=== PATIENT | female | born 1960 | race African-American/Black ===

== ENCOUNTER 2018-07-31 09:44 | Emergency (ER) | payer SELFPAY ==
[2018-07-31] MEDS ORDERED: ONDANSETRON 4 MG/2 ML VIAL ONE (10:46)
[2018-07-31] MEDS ORDERED: MORPHINE 4 MG/ML SYR ONE (10:46)
[2018-07-31] MEDS ORDERED: NA CHLORIDE 0.9% 1,000 ML ONE (10:46)
[2018-07-31 11:00] LABS: Absolute Lymphocytes (CBC) 2.4 K/uL (0.7-4.9); Absolute Monocytes 0.5 K/uL (0.1-1.3); Basophils % 0.5 % (0-1.3); Eosinophils % 2.3 % (0-4.4); Lymphocytes % 39.6 % (15.3-44.8); MCH 29.8 pg (27.0-35.0); MPV 8.2 fL (7.6-11.3); Monocytes % 7.8 % (3.3-12.3); RBC Red Blood Cell Count 4.66 M/uL (3.86-4.86)
--- NOTE | 2018-07-31 11:03 | RAD REPORT ---
EXAM DESCRIPTION: CT - Stone Protocol - 07/31/2018 10:51 am CLINICAL HISTORY: Flank pain. Right sided abdominal pain COMPARISON: Abdomen Pelvis Wo Contrast dated 08/03/2017 TECHNIQUE: Axial images were obtained without oral or IV contrast. Lack of contrast limits solid org an and vascular assessment. The [id number] spans the entirety of the system partially obscuring uppermost abdomen and lung bases. Coronal reformatted images were obtained and reviewed. All CT scans are performed using dose optimization technique as appropriate and may include automated exposure control or mA/KV adjustment according to patient size. FINDINGS: The lower lung vasquez are clear. Imaged portions of the liver and spleen show no suspicious findings on non-contrast imaging. The panc reas and adrenal glands are normal. No pathologic lymphadenopathy in the abdomen or pelvis. No urinary tract stones or obstructive uropathy. No bowel obstruction, free air, free fluid or abscess. Appendectomy. No significant bony abnormality. IMPRESSION: No urinary tract stones or obstructive uropathy.
[2018-07-31 11:14] LABS: ALT/SGPT 23 U/L (12-78); AST/SGOT 16 U/L (15-37); Albumin 3.9 g/dL (3.4-5.0); Alkaline Phosphatase 99 U/L (45-117); BUN Blood Urea Nitrogen 13 mg/dL (7-18); Bicarbonate 28 mmol/L (21-32); Bilirubin Direct < 0.1 mg/dL (0-0.2); Bilirubin Total 0.3 mg/dL (0.2-1.0); Glucose Level 103 mg/dL (74-106); Lipase 163 U/L (73-393); Potassium 3.9 mmol/L (3.5-5.1); Protein, Total 7.9 g/dL (6.4-8.2); Sodium Level 139 mmol/L (136-145)
[2018-07-31] MEDS ORDERED: KETOROLAC 30 MG/ML INJ ONE ×2 (12:07→13:42)
[2018-07-31 12:12] LABS: Urine Blood NEGATIVE (NEG); Urine Glucose NEGATIVE (NEG); Urine Protein NEGATIVE (NEG); Urine pH 5.5 (5.0-7.0)
--- NOTE | 2018-07-31 13:32 | ER ---
Nurse's Notes [facility] Name: Joy Soler Age: 58 yrs Sex: Female : 1960 Arrival Date: 07/31/2018 Time: 09:47 Bed 16 Private MD: None, None Diagnosis: Pain in right hip;Low back pain Presentation: 07/31 10:06 Presenting complaint: Patient states: i have this R lower abd pain, it feels like a hj ripping feeling, since yesterday, denies nausea and vomiting; denies fever and chills;. Transition of care: patient was not received from another setting of care. Onset of symptoms was July 31, 2018. Risk Assessment: Do you want to hurt yourself or someone else? Patient reports no desire to harm self or others. Initial Sepsis Screen: Does the patient meet any 2 criteria? No. Patient's initial sepsis screen is negative. Does the patient have a suspected source of infection? No. Patient's initial sepsis screen is negative. Care prior to arrival: None. 10:06 Method Of Arrival: Ambulatory hj 10:06 Acuity: LEIGH 3 hj Triage Assessment: 10:08 General: Appears in no apparent distress. uncomfortable, Behavior is cooperative, hj appropriate for age, anxious. Pain: Complains of pain in abdomen. GI: Reports lower abdominal pain. Historical: - Allergies: 10:08 No Known Allergies; hj - Home Meds: 10:08 blood pressure meds [Active]; hj - PMHx: 10:08 Hypertension; hj - PSHx: 10:08 Hysterectomy; Appendectomy; hj - Immunization history:: Adult Immunizations not immunized. - Social history:: Smoking status: Patient uses tobacco products, smokes one-half pack cigarettes per day, Patient/guardian denies using alcohol. - Ebola Screening: : Patient negative for fever greater than or equal to 101.5 degrees Fahrenheit, and additional compatible Ebola Virus Disease symptoms Patient denies exposure to infectious person Patient denies travel to an Ebola-affected area in the 21 days before illness onset. Screenin:08 Abuse screen: Denies threats or abuse. Denies injuries from another. Nutritional hj screening: No deficits noted. Tuberculosis screening: No symptoms or risk factors identified. Fall Risk None identified. Assessment: 10:09 GI: Bowel sounds hj 10:54 General: Appears uncomfortable, Behavior is calm, cooperative. Pain: Complains of pain la1 in suprapubic area and right lower quadrant Pain currently is 8 out of 10 on a pain scale. Neuro: Level of Consciousness is awake, alert, obeys commands, Oriented to person, place, time, situation. Cardiovascular: Capillary refill < 3 seconds Patient's skin is warm and dry. Respiratory: Airway is patent Respiratory effort is even, unlabored, Respiratory pattern is regular, symmetrical. GI: Abdomen is round non-distended, Bowel sounds present X 4 quads. Abd is soft X 4 quads Abdomen is tender to palpation in right upper quadrant and right lower quadrant Abdomen has rebound tenderness Patient currently denies diarrhea, nausea, vomiting. 13:20 Reassessment: Patient appears in no apparent distress at this time. No changes from la1 previously documented assessment. Patient and/or family updated on plan of care and expected duration. Pain level reassessed. Vital Signs: 10:09 BP 140 / 98; Pulse 81; Resp 18; Temp 98.6(O); Pulse Ox 100% on R/A; Weight 70.76 kg; hj Height 5 ft. 6 in. (167.64 cm); Pain 10/10; 11:29 BP 140 / 87; Pulse 65; Resp 16; Pulse Ox 98% on R/A; la1 13:53 BP 135 / 74; Pulse 97; Resp 16; Temp 98.3; Pulse Ox 98% on R/A; la1 10:09 Body Mass Index 25.18 (70.76 kg, 167.64 cm) ED Course: 09:47 Patient arrived in ED. mr 09:47 None, None is Private Physician. mr 10:07 Triage completed. hj 10:09 Arm band placed on right wrist. hj 10:09 Patient has correct armband on for positive identification. Placed in gown. Bed in low hj position. Call light in reach. 10:13 Mann Nicholson PA is PHCP. amy 10:13 Simran Kim MD is Attending Physician. jmm 10:25 Colton Segura RN is Primary Nurse. la1 10:38 Urine collected: clean catch specimen, clear. mh5 10:[address] mw3 10:49 CT completed. Patient moved back from CT. mw3 10:50 CT Stone Protocol In Process Unspecified. EDMS 10:55 No provider procedures requiring assistance completed. Inserted saline lock: 22 gauge la1 in left antecubital area, using aseptic technique. Blood collected. 13:31 Venkatesh Varghese MD is Referral Physician. m 13:53 IV discontinued, intact, bleeding controlled, No redness/swelling at site. Pressure la1 dressing applied. Administered Medications: 10:53 Drug: NS 0.9% 1000 ml Route: IV; Rate: 1 bolus; Site: left antecubital; la1 13:54 Follow up: IV Status: Completed infusion la1 10:54 Drug: morphine 4 mg Route: IVP; Site: left antecubital; la1 12:45 Follow up: Response: No adverse reaction; Pain is decreased la1 10:54 Drug: Zofran 4 mg Route: IVP; Site: left antecubital; la1 12:45 Follow up: Response: No adverse reaction la1 12:04 Drug: Ketorolac 30 mg Route: IVP; Site: left antecubital; la1 12:44 Follow up: Response: No adverse reaction; Pain is decreased la1 13:52 Drug: Ketorolac 15 mg Route: IVP; Site: left antecubital; la1 13:53 Follow up: Response: No adverse reaction la1 Outcome: 13:31 Discharge ordered by MD. m 13:53 Discharged to home ambulatory. la1 13:53 Condition: stable 13:53 Discharge instructions given to patient, Instructed on discharge instructions, follow up and referral plans. medication usage, Demonstrated understanding of instructions, follow-up care, medications, Prescriptions given X 2. 13:53 Patient left the ED. la1 Signatures: Dispatcher [employer] EDMS Mann Nicholson PA PA jmm Rivera, Mary mr Attema, Lee RN RN la1 Sacha Mena, Alida Wesley RN [facility] Arelis Evangelista 3
--- NOTE | 2018-07-31 13:32 | EDPHYS ---
Physician Documentation [facility] Name: Joy Soler Age: 58 yrs Sex: Female : 1960 Arrival Date: 07/31/2018 Time: 09:47 Bed 16 Private MD: None, None ED Physician Simran Kim HPI: 07/31 10:38 This 58 yrs old Black Female presents to ER via Ambulatory with complaints of Abdominal jmm Pain, Back Pain. 10:38 The patient presents with abdominal pain right lower quadrant. Onset: The jmm symptoms/episode began/occurred gradually, 1 day(s) ago. The symptoms are described as achy. Modifying factors: The symptoms are alleviated by remaining still, the symptoms are aggravated by movement. The patient has not experienced similar symptoms in the past. This is a 58 year old female with a history of htn that presents to the ED with right sided abdominal pain and right flank pain beginning yesterday worsening today. Patient denies injury. Denies vomiting, denies diarrhea. . Historical: - Allergies: 10:08 No Known Allergies; hj - Home Meds: 10:08 blood pressure meds [Active]; hj - PMHx: 10:08 Hypertension; hj - PSHx: 10:08 Hysterectomy; Appendectomy; hj - Immunization history:: Adult Immunizations not immunized. - Social history:: Smoking status: Patient uses tobacco products, smokes one-half pack cigarettes per day, Patient/guardian denies using alcohol. - Ebola Screening: : Patient negative for fever greater than or equal to 101.5 degrees Fahrenheit, and additional compatible Ebola Virus Disease symptoms Patient denies exposure to infectious person Patient denies travel to an Ebola-affected area in the 21 days before illness onset. ROS: 10:38 Constitutional: Negative for fever, chills, and weight loss, Eyes: Negative for injury, jmm pain, redness, and discharge, Cardiovascular: Negative for chest pain, palpitations, and edema, Respiratory: Negative for shortness of breath, cough, wheezing, and pleuritic chest pain. 10:38 Abdomen/GI: Positive for abdominal pain. 10:38 Back: Positive for flank pain, on the right. 10:38 All other systems are negative. Exam: 10:38 Head/Face: atraumatic. Eyes: EOMI, no conjunctival erythema appreciated ENT: Moist jmm Mucus Membranes Neck: Trachea midline, Supple Chest/axilla: Normal chest wall appearance and motion. Cardiovascular: Regular rate and rhythm. No edema appreciated Respiratory: Normal respirations, no respiratory distress appreciated Abdomen/GI: Non distended, soft 10:38 MS/ Extremity: Moves all extremities, no obvious deformities appreciated, no edema noted to the lower extremities Neuro: Awake and alert, normal gait Psych: Behavior is normal, Mood is normal, Patient is cooperative and pleasant 10:38 Constitutional: The patient appears alert, awake, uncomfortable. 10:38 Back: ROM is painful. Vital Signs: 10:09 BP 140 / 98; Pulse 81; Resp 18; Temp 98.6(O); Pulse Ox 100% on R/A; Weight 70.76 kg; hj Height 5 ft. 6 in. (167.64 cm); Pain 10/10; 11:29 BP 140 / 87; Pulse 65; Resp 16; Pulse Ox 98% on R/A; la1 13:53 BP 135 / 74; Pulse 97; Resp 16; Temp 98.3; Pulse Ox 98% on R/A; la1 10:09 Body Mass Index 25.18 (70.76 kg, 167.64 cm) MDM: 10:34 Patient medically screened. [facility] 12:06 Data reviewed: vital signs, nurses notes. ED course: After I discussed CT imaging [facility] results patient stated she had some left upper back pain earlier this week. The patient's pain is mildly relieved in the ED. A cystic mass is palpated in the right paraspinal lumbar region. Pain is localized in the right groin and worsened with flexion of the hip. Symptoms appear more likely musculoskeletal. Patient is encouraged to follow up with orthopedics and otherwise advised to return to the ED if symptoms worsened. Patient understood and agrees with the plan of care. . 13:31 Data reviewed: radiologic studies, CT scan. Counseling: I had a detailed discussion [facility] with the patient and/or guardian regarding: the historical points, exam findings, and any diagnostic results supporting the discharge/admit diagnosis, lab results, radiology results, the need for outpatient follow up, to return to the emergency department if symptoms worsen or persist or if there are any questions or concerns that arise at home. 07/31 10:35 Order name: Basic Metabolic Panel; Complete Time: 11:44 [facility] 07/31 10:35 Order name: CBC with Diff; Complete Time: 11:08 [facility] 07/31 10:35 Order name: Creatinine for Radiology; Complete Time: 11:44 [facility] 07/31 10:35 Order name: Hepatic Function; Complete Time: 11:44 [facility] 07/31 10:35 Order name: Lipase; Complete Time: 11:44 [facility] 07/31 10:53 Order name: Urine Dipstick--Ancillary (enter results); Complete Time: 12:16 07/31 10:35 Order name: IV Saline Lock; Complete Time: 10:37 [facility] 07/31 10:35 Order name: Labs collected and sent; Complete Time: 10:37 [facility] 07/31 10:36 Order name: CT Stone Protocol; Complete Time: 11:08 [facility] Administered Medications: 10:53 Drug: NS 0.9% 1000 ml Route: IV; Rate: 1 bolus; Site: left antecubital; la1 13:54 Follow up: IV Status: Completed infusion la1 10:54 Drug: morphine 4 mg Route: IVP; Site: left antecubital; la1 12:45 Follow up: Response: No adverse reaction; Pain is decreased la1 10:54 Drug: Zofran 4 mg Route: IVP; Site: left antecubital; la1 12:45 Follow up: Response: No adverse reaction la1 12:04 Drug: Ketorolac 30 mg Route: IVP; Site: left antecubital; la1 12:44 Follow up: Response: No adverse reaction; Pain is decreased la1 13:52 Drug: Ketorolac 15 mg Route: IVP; Site: left antecubital; la1 13:53 Follow up: Response: No adverse reaction la1 Disposition: 08/01 10:41 Co-signature as Attending Physician, Simran Kim MD. ma2 Disposition: 07/31/18 13:31 Discharged to Home. Impression: Pain in right hip, Low back pain. - Condition is Stable. - Discharge Instructions: Joint Pain, Back Pain, Adult. - Prescriptions for Ibuprofen 800 mg Oral Tablet - take 1 tablet by ORAL route every 12 hours As needed take with food; 20 tablet. Tylenol- Codeine #3 300-30 mg Oral Tablet - take 1 tablet by ORAL route every 6 hours As needed; 12 tablet. - Medication Reconciliation Form, Thank You Letter, Antibiotic Education, Prescription Opioid Use, Work release form form. - Follow up: Venkatesh Varghese MD; When: 2 - 3 days; Reason: Recheck today's complaints, Continuance of care, Re-evaluation by your physician. Signatures: Dispatcher [employer] EDMS Mann Nicholson PA PA jmm Attema, Lee, RN RN la1 Sacha Mena RN RN hj Simran Kim MD MD ma2 Corrections: (The following items were deleted from the chart) 07/31 13:53 13:31 07/31/2018 13:31 Discharged to Home. Impression: Pain in right hip; Low back la1 pain. Condition is Stable. Forms are Medication Reconciliation Form, Thank You Letter, Antibiotic Education, Prescription Opioid Use. Follow up: Venkatesh Varghese; When: 2 - 3 days; Reason: Recheck today's complaints, Continuance of care, Re-evaluation by your physician. amy
[2018-07-31 14:05] VITALS: O2SAT 98
[2018-07-31 14:06] VITALS: BP 135/74; TEMP 98.3
== END 2018-07-31 13:53 | disposition home or self-care (01) ==
LOC: ER 09:44
DX: M25.551 Pain in right hip (principal); I10 Essential (primary) hypertension; F17.210 Nicotine dependence, cigarettes, uncomplicated
CPT/HCPCS: 36415; 74176; 76377; 80048; 80076; 81003; 83690; 85025; 96361; 96374; 96375; 99284; J2405; J7030

== ENCOUNTER 2020-12-03 01:22 | Emergency (ER) | payer OTHER, SELFPAY ==
[2020-12-03] MEDS ORDERED: HYDROCODONE/APAP 10/325 TAB ONE (02:44)
[2020-12-03] MEDS ORDERED: KETOROLAC 30 MG/ML INJ ONE (02:44)
--- NOTE | 2020-12-03 03:56 | ER ---
Nurse's Notes [facility] Name: Joy Soler Age: 60 yrs Sex: Female : 1960 Arrival Date: 12/03/2020 Time: 01:24 Bed 14 Private MD: None, None Diagnosis: Pain in right knee Presentation: 12/03 01:30 Chief complaint: EMS states: From [facility], slip and fall on ice in the afternoon sf of 12/02/2020, complains of right knee pain, no loc, went to bed hoping it would feel better but was too bad to walk when trying to go to the bathroom this morning. Coronavirus screen: Client denies travel out of the [place] in the last 14 days. At this time, the client does not indicate any symptoms associated with coronavirus-19. Ebola Screen: Patient negative for fever greater than or equal to 101.5 degrees Fahrenheit, and additional compatible Ebola Virus Disease symptoms Patient denies exposure to infectious person. Patient denies travel to an Ebola-affected area in the 21 days before illness onset. No symptoms or risks identified at this time. Initial Sepsis Screen: Does the patient meet any 2 criteria? No. Patient's initial sepsis screen is negative. Does the patient have a suspected source of infection? No. Patient's initial sepsis screen is negative. Risk Assessment: Do you want to hurt yourself or someone else? Patient reports no desire to harm self or others. Onset of symptoms was December 02, 2020. 01:30 Method Of Arrival: EMS: [facility] sf 01:30 Acuity: LEIGH 4 sf Triage Assessment: 01:30 General: Appears in no apparent distress. comfortable, Behavior is calm, cooperative, sf appropriate for age. Pain: Complains of pain in right knee and right montoya Pain currently is 10 out of 10 on a pain scale. Neuro: No deficits noted. Level of Consciousness is awake, alert, obeys commands, Oriented to person, place, time, situation, Appropriate for age. Cardiovascular: No deficits noted. Patient's skin is warm and dry. Respiratory: No deficits noted. Airway is patent Respiratory effort is even, unlabored, Respiratory pattern is regular, symmetrical. Musculoskeletal: pain to right knee Reports pain in right knee and right montoya. Assessment: 02:47 Reassessment: x-ray at bedside. em Vital Signs: 01:30 BP 124 / 92; Pulse 96; Resp 16; Temp 100; Pulse Ox 98% ; Weight 95.25 kg; Height 5 ft. sf 6 in. (167.64 cm); Pain 10/10; 01:30 Body Mass Index 33.89 (95.25 kg, 167.64 cm) ED Course: 01:24 Patient arrived in ED. sg 01:25 None, None is Private Physician. sg 01:29 Moustapha Soliz MD is Attending Physician. kdr 01:34 Triage completed. sf 01:50 Gómez De La Torre, RN is Primary Nurse. em 03:35 Knee Right 3 View XRAY In Process Unspecified. EDMS Administered Medications: 02:46 Drug: [place] 10 mg-325 mg 1 tabs Route: PO; em 02:46 Drug: TORadol - Ketorolac 15 mg Route: IM; Site: right deltoid; em Outcome: 03:55 Discharge ordered by . kdr 04:27 Patient left the ED. ll2 Signatures: Dispatcher [employer] EDMS Venkatesh Cook, KYLE WRIGHT Moustapha Soliz MD MD [facility] Gómez De La Torre, RN KYLE Beckie Gray RN RN 2 Venkatesh Onofre RN RN
--- NOTE | 2020-12-03 03:56 | EDPHYS ---
Physician Documentation [facility] Name: Joy Soler Age: 60 yrs Sex: Female : 1960 Arrival Date: 12/03/2020 Time: 01:24 Bed 14 Private MD: None, None ED Physician Moustapha Soliz HPI: 12/03 02:20 This 60 yrs old Black Female presents to ER via EMS with complaints of Knee Pain. kdr 02:20 The patient presents with a contusion, decreased range of motion, an injury, pain, that kdr is acute. The complaints affect the lateral aspect of right knee, medial aspect of right knee and right knee. Context: The problem was sustained on a street or driveway, resulted from a direct blow, the patient falling, a mis-step, playing sports, an unknown cause, the patient is not able to bear weight, the patient is able to ambulate, with severe difficulty, uses a walker, Problem is a result from a previous injury: No. Onset: The symptoms/episode began/occurred suddenly, this morning, today. Modifying factors: The symptoms are alleviated by remaining still, the symptoms are aggravated by movement, weight bearing, bending knee. Associated signs and symptoms: The patient has no apparent associated signs or symptoms. Treatment prior to arrival includes: no previous treatment. Severity of symptoms: At their worst the symptoms were severe, incapacitating, just prior to arrival, in the emergency department the symptoms are unchanged. The patient has not experienced similar symptoms in the past. The patient has not recently seen a physician. Slipped and fell on the ice land ing on her knees. She was able to get home and went to sleep. When she awoke, she was unable to bear ines or even walk with a walker. ROS: 02:20 Constitutional: Negative for fever, chills, and weight loss, Eyes: Negative for injury, kdr pain, redness, and discharge, Neck: Negative for injury, pain, and swelling, Cardiovascular: Negative for chest pain, palpitations, and edema, Respiratory: Negative for shortness of breath, cough, wheezing, and pleuritic chest pain, Abdomen/GI: Negative for abdominal pain, nausea, vomiting, diarrhea, and constipation, Back: Negative for injury and pain, : Negative for injury, bleeding, discharge, and swelling, Skin: Negative for injury, rash, and discoloration, Neuro: Negative for headache, weakness, numbness, tingling, and seizure activity. Psych: Negative for depression, anxiety, suicide ideation, homicidal ideation, and hallucinations, Allergy/Immunology: Negative for hives, rash, and allergies, Endocrine: Negative for neck swelling, polydipsia, polyuria, polyphagia, and marked weight changes, Hematologic/Lymphatic: Negative for swollen nodes, abnormal bleeding, and unusual bruising. 02:20 MS/extremity: Positive for injury or acute deformity, contusion, decreased range of motion, pain, tenderness, of the lateral aspect of right knee, medial aspect of right knee and right knee. Exam: 02:20 Constitutional: This is a well developed, well nourished patient who is awake, alert, kdr and in no acute distress. Head/Face: Normocephalic, atraumatic. Eyes: Pupils equal round and reactive to light, extra-ocular motions intact. Lids and lashes normal. Conjunctiva and sclera are non-icteric and not injected. Cornea within normal limits. Periorbital areas with no swelling, redness, or edema. Neck: Trachea midline, no thyromegaly or masses palpated, and no cervical lymphadenopathy. Supple, full range of motion without nuchal rigidity, or vertebral point tenderness. No Meningismus. Chest/axilla: Normal chest wall appearance and motion. Nontender with no deformity. No lesions are appreciated. Cardiovascular: Regular rate and rhythm with a normal S1 and S2. No gallops, murmurs, or rubs. Normal PMI, no JVD. No pulse deficits. Respiratory: Lungs have equal breath sounds bilaterally, clear to auscultation and percussion. No rales, rhonchi or wheezes noted. No increased work of breathing, no retractions or nasal flaring. Abdomen/GI: Soft, non-tender, with normal bowel sounds. No distension or tympany. No guarding or rebound. No evidence of tenderness throughout. Back: No spinal tenderness. No costovertebral tenderness. Full range of motion. Skin: Warm, dry with normal turgor. Normal color with no rashes, no lesions, and no evidence of cellulitis. Neuro: Awake and alert, GCS 15, oriented to person, place, time, and situation. Cranial nerves II-XII grossly intact. Motor strength 5/5 in all extremities. Sensory grossly intact. Cerebellar exam normal. Normal gait. Psych: Awake, alert, with orientation to person, place and time. Behavior, mood, and affect are within normal limits. 02:20 Musculoskeletal/extremity: Extremities: grossly normal except: noted in the lateral aspect of right knee, medial aspect of right knee and right knee: contusion, decreased ROM, pain, swelling, tenderness. Vital Signs: 01:30 BP 124 / 92; Pulse 96; Resp 16; Temp 100; Pulse Ox 98% ; Weight 95.25 kg; Height 5 ft. sf 6 in. (167.64 cm); Pain 10/10; 01:30 Body Mass Index 33.89 (95.25 kg, 167.64 cm) sf MDM: 02:20 Data reviewed: vital signs, nurses notes, radiologic studies. Counseling: I had a kdr detailed discussion with the patient and/or guardian regarding: the historical points, exam findings, and any diagnostic results supporting the discharge/admit diagnosis, radiology results, the need for outpatient follow up. 03:55 Patient medically screened. kdr 12/03 02:06 Order name: Knee Right 3 View XRAY em Administered Medications: 02:46 Drug: [place] 10 mg-325 mg 1 tabs Route: PO; em 02:46 Drug: TORadol - Ketorolac 15 mg Route: IM; Site: right deltoid; em Disposition: 12/03/20 03:55 Discharged to Home. Impression: Pain in right knee. - Condition is Stable. - Discharge Instructions: Musculoskeletal Pain, Knee Pain. - Prescriptions for Tylenol- Codeine #3 300-30 mg Oral Tablet - take 2 tablets by ORAL route every 6 hours As needed; 16 tablet. - Medication Reconciliation Form, Thank You Letter, Prescription Opioid Use form. - Follow up: Private Physician; When: 2 - 3 days; Reason: If symptoms return, Further diagnostic work-up, Recheck today's complaints, Continuance of care, Re-evaluation by your physician. - Problem is new. - Symptoms have improved. - Notes: You may need a CT or MRI of your knee if the pain persists. Ther is an irregularity in the lower portion of your femur whcih warrants possible follow-up withorthopedics Signatures: Dispatcher [employer] EDNM Moustapha Soliz MD MD kdr Munoz, Edgar, RN RN Beckie Villalobos, RN RN ll2 Corrections: (The following items were deleted from the chart) 04:27 03:55 12/03/2020 03:55 Discharged to Home. Impression: Pain in right knee. Condition is ll2 Stable. Forms are Medication Reconciliation Form, Thank You Letter, Antibiotic Education, Prescription Opioid Use. Follow up: Private Physician; When: 2 - 3 days; Reason: If symptoms return, Further diagnostic work-up, Recheck today's complaints, Continuance of care, Re-evaluation by your physician. Problem is new. Symptoms have improved. kdr
[2020-12-03 04:31] VITALS: BP 124/92; TEMP 100; O2SAT 98
--- NOTE | 2020-12-03 08:35 | RAD REPORT ---
EXAM DESCRIPTION: RAD - Knee Right 3 View - 12/03/2020 3:35 am CLINICAL HISTORY: PAIN, slip and fall COMPARISON: No comparisons FINDINGS: No fracture, dislocation or periosteal reaction. Sclerotic focus in the distal femoral met aphysis is most likely bone infarct or enchondroma, neither of which is clinically significant in the absence of bone pain the pre dates the fall.No joint effusion seen. No joint space narrowing. No for eign body or other soft tissue abnormality. IMPRESSION: Negative right knee for acute bone or joint finding. Clinical concerns for internal derangement or occult bony injury could be further assessed with MR im aging.
== END 2020-12-03 04:27 | disposition home or self-care (01) ==
LOC: ER 01:22
DX: M25.561 Pain in right knee (principal); W00.9XXA Unspecified fall due to ice and snow, initial encounter
CPT/HCPCS: 96372; 99283

== ENCOUNTER 2021-11-29 13:23 | Emergency (ER) | payer OTHER ==
--- OUTSIDE RECORDS SUMMARY | 2021-11-29 13:26 | XMS REPORT | Continuity of Care Document ---
:1960 Author Organization [facility] t Address [address] [place] [address] Care Team Providers Name Role Phone Jennifer LADLE MECHANIC Attending Clinician JENNIFER Attending Clinician Unavailable Problems This patient has no known problems. Allergies, Adverse Reactions, Alerts Allergy Allergy Status Severity Reaction(s) Onset Inactive Treating Comm ents Source Name Type Date Date Clinician NO KNOWN Drug Active Univers ALLERGIE Class ity of [facility] Social History Social Habit Start Date Stop Date Quantity Comments Source Exposure to Not sure [facility] SARS-CoV-2 (event) Medica l Branch Sex Assigned At [birth year] [facility] 00:00:00 00:00:00 [facility] Smoking Status Start Date Stop Date Source Unknown if ever smoked [facility] Medications This patient has no known medications. Procedures Procedure Date / Time Performed Performing Clinician Sourc e US ABDOMEN COMPLETE 2021-01-08 19:00:19 Noemí Rodriguez [facility] Encounters Start End Encounter Admission Attending Care Care Encounter Source Date/Time Date/Time Type Type Clinicians Facility Department ID 2021-01-08 2021-01-[address] [facility] [id number] Univers 12:50:52 23:59:00 Encounter Noemí Martin [id number] Bo [id number] [facility] [id number] [facility] cheryl 806 Branch 2021-01-08 2021-01-08 Outpatient R [facility] [id number] Univers 00:00:00 00:00:00 NOEMÍ johnson [facility] Results Test Description Test Test Results Result Source Time Comments Comments US ABDOMEN 2021-03- Mildly diffusely Univers ity of COMPLETE 24 echogenic liver can be [facility] 19:21:42 seen with underlying Bran ch hepaticsteatosis. No focal hepatic lesions identified to the extent visualized. No cholelithiasis.RIGHT UPPER QUADRANT ABDOMINAL SONOGRAM TECHNIQUE: Grayscale and limited color Doppler images of the right upperquadrant of the abdomen were obtained. INDICATION: Alcohol dependence with concern for liver disease and ascites. COMPARISON: None available. FINDINGS: Liver is mildly echogenic but essentially normal echotexture. Normalhepatic surface contour. Liver measures 14.7 cm in craniocaudal dimension.No focal hepatic lesions identified to the extent visualized. Main portalvein is patent with normal hepatopedal flow. Main portal vein measures 0.9cm in AP diameter bibiana hepatis. Partial contracted gallbladder without cholelithiasis. No abnormalgallbladder wall thickening (3 mm) or pericholecystic free fluid. Negativesonographic Jang sign. CBD measures 0.4 mm in AP diameter at portahepatis, normal. Visualized portions of the pancreatic head and body appear unremarkable.Pancreatic tail is obscured by bowel gas. Right kidney measures 10.4 x 4.4 x 4.9 cm. Left kidney measures 11.2 x 5.7x 5.0 cm. There is no hydronephrosis or nephrolithiasis. There ispreservation of normal corticomedullary differentiation. No atrophy orcortical thinning. Spleen measures 9.6 cm and clinical dimension, normal. Proximal abdominal aorta measures 2.3 cm in AP diameter bibiana hepatis,normal. No abnormal aortic dilatation in the mid and distal portions.Visualized portions of the IVC appear unremarkable as well. No free fluid in the upper abdomen. [facility], Radiant Results Inft User - 01/08/2021 2:22 PM CDTRIGHT UPPER QUADRANT ABDOMINAL SONOGRAMTECHNIQUE: Grayscale and limited color Doppler images of the right upperquadrant of the abdomen were obtained.INDICATION: Alcohol dependence with concern for liver disease and ascites.COMPARISON: None available.FINDINGS:Live r is mildly echogenic but essentially normal echotexture. Normalhepatic surface contour. Liver measures 14.7 cm in craniocaudal dimension.No focal hepatic lesions identified to the extent visualized. Main portalvein is patent with normal hepatopedal flow. Main portal vein measures 0.9cm in AP diameter bibiana hepatis.Partial contracted gallbladder without cholelithiasis. No abnormalgallbladder wall thickening (3 mm) or pericholecystic free fluid. Negativesonographic Jang sign. CBD measures 0.4 mm in AP diameter at portahepatis, normal.Visualized portions of the pancreatic head and body appear unremarkable.Pancreatic tail is obscured by bowel gas.Right kidney measures 10.4 x 4.4 x 4.9 cm. Left kidney measures 11.2 x 5.7x 5.0 cm. There is no hydronephrosis or nephrolithiasis. There ispreservation of normal corticomedullary differentiation. No atrophy orcortical thinning.Spleen measures 9.6 cm and clinical dimension, normal.Proximal abdominal aorta measures 2.3 cm in AP diameter bibiana hepatis,normal. No abnormal aortic dilatation in the mid and distal portions.Visualized portions of the IVC appear unremarkable as well. No free fluid in the upper abdomen.IMPRESSIONMildl y diffusely echogenic liver can be seen with underlying hepaticsteatosis.No focal hepatic lesions identified to the extent visualized.No cholelithiasis.
[2021-11-29 13:52] LABS: Urine Blood Negative (Negative); Urine Glucose Negative (Negative); Urine Protein Negative (Negative); Urine Specific Gravity >=1.030 (1.005-1.030); Urine pH 5.5 (5.0-7.0)
[2021-11-29] MEDS ORDERED: DIAZEPAM 10 MG/2 ML INJ SYRINGE ONE (14:27)
[2021-11-29] MEDS ORDERED: ONDANSETRON 4 MG/2 ML VIAL ONE (14:27)
[2021-11-29] MEDS ORDERED: KETOROLAC 30 MG/ML INJ ONE (14:27)
[2021-11-29 14:32] LABS: Absolute Lymphocytes (CBC) 2.7 K/uL (0.7-4.9); Hematocrit 40.3 % (36.0-45.0); Lymphocytes % 31.2 % (15.3-44.8); MPV 7.2 fL (7.6-11.3); RBC Red Blood Cell Count 4.67 M/uL (3.86-4.86)
[2021-11-29 14:49] LABS: ALT/SGPT 33 U/L (12-78); AST/SGOT 20 U/L (15-37); Albumin 3.6 g/dL (3.4-5.0); Alkaline Phosphatase 109 U/L (45-117); BUN Blood Urea Nitrogen 19 mg/dL (7-18); Bicarbonate 27 mmol/L (21-32); Bilirubin Direct < 0.1 mg/dL (0-0.2); Bilirubin Total 0.2 mg/dL (0.2-1.0); Glucose Level 93 mg/dL (74-106); Lipase 109 U/L (73-393); Potassium 3.5 mmol/L (3.5-5.1); Protein, Total 8.2 g/dL (6.4-8.2); Sodium Level 138 mmol/L (136-145)
--- NOTE | 2021-11-29 15:16 | RAD REPORT ---
EXAM DESCRIPTION: CTAbdomen Pelvis W Contrast - 11/29/2021 3:00 pm CLINICAL HISTORY: left flank pain COMPARISON: <Comparisons> TECHNIQUE: CT of the abdomen and pelvis was performed. All CT scans are performed using dose optimization technique as appropriate and may include automated exposure control or mA/KV adjustment according to patient size. FINDINGS: Lower chest: No acute abnormality. Liver: No acute abnormality or suspicious lesions. Biliary: No biliary ductal dilatation. Stomach: No significant focal abnormality. Duodenum: No significant focal abnormality. Pancreas: No significant abnormality. Spleen: No significant abnormality. Adrenal: No suspicious lesions. Kidney/ureter: No hydronephrosis. No renal calculi. Retroperitoneum: No retroperitoneal adenopathy. Vascular: No aneurysm. Atherosclerosis. Bowel: No significant focal abnormality. Peritoneum: No ascites or free air. Bladder: Grossly unremarkable. Reproductive: No adnexal masses. Hysterectomy. Bones: No acute fracture. Other: 2.9 cm sebaceous cyst in the lower back. IMPRESSION: No acute intra-abdominal or pelvic finding. Appendectomy
[2021-11-29] MEDS ORDERED: MORPHINE 2 MG/ML SYR ONE (16:04)
[2021-11-29] MEDS ORDERED: FENTANYL CITR 100 MCG/2 ML ONE (16:18)
[2021-11-29] MEDS ORDERED: LIDOCAINE 4% PATCH ONE (16:18)
--- NOTE | 2021-11-29 16:54 | ER ---
Nurse's Notes [facility] Name: Joy Soler Age: 61 yrs Sex: Female : 1960 Arrival Date: 11/29/2021 Time: 13:26 Bed 14 Private MD: Diagnosis: Low back pain Presentation: 11/29 13:44 Chief complaint: Patient states: L flank pain that began last night, denies N/V/D or ph difficulty urinating. Coronavirus screen: Vaccine status: Patient reports receiving the 2nd dose of the covid vaccine. At this time, the client does not indicate any symptoms associated with coronavirus-19. Ebola Screen: No symptoms or risks identified at this time. Initial Sepsis Screen: Does the patient meet any 2 criteria? No. Patient's initial sepsis screen is negative. Does the patient have a suspected source of infection? No. Patient's initial sepsis screen is negative. Risk Assessment: Do you want to hurt yourself or someone else? Patient reports no desire to harm self or others. 13:44 Method Of Arrival: Ambulatory ph 13:44 Acuity: LEIGH 3 ph Historical: - Allergies: 13:44 No Known Allergies; ph - PMHx: 13:44 Hypertension; ph - Immunization history:: Client reports receiving the 2nd dose of the Covid vaccine, Client reports receiving the Param \T\ Param single-dose vaccine. - Social history:: Smoking status: Patient/guardian denies using tobacco, Stopped _ months ago 9. Screenin:44 Abuse screen: Denies threats or abuse. Denies injuries from another. Nutritional ic1 screening: No deficits noted. Tuberculosis screening: No symptoms or risk factors identified. Fall Risk None identified. Assessment: 14:44 General: Appears in no apparent distress. uncomfortable, Behavior is calm, cooperative. ic1 Pain: Complains of pain in left low back and left mid back. Neuro: Level of Consciousness is awake, alert, obeys commands, Oriented to person, place, time. Cardiovascular: No deficits noted. Respiratory: No deficits noted. GI: No deficits noted. : No deficits noted. : Denies burning with urination, discharge, urinary frequency. EENT: No deficits noted. Derm: No deficits noted. Musculoskeletal: No deficits noted. Vital Signs: 13:44 BP 157 / 107; Pulse 92; Resp 18; Temp 97.9; Pulse Ox 100% on R/A; Weight 89.36 kg; ph Height 5 ft. 6 in. (167.64 cm); 14:44 BP 113 / 92; Pulse 88; Resp 18; Pulse Ox 98% ; ic1 16:24 BP 126 / 92; Pulse 89; Resp 18; Pulse Ox 99% ; ic1 13:44 Body Mass Index 31.80 (89.36 kg, 167.64 cm) ph ED Course: 13:26 Patient arrived in ED. mr 13:46 Triage completed. ph 13:46 Arm band placed on. ph 14:12 Mann Nicholson PA is PHCP. jmm 14:12 Moustapha Soliz MD is Attending Physician. jmm 14:42 Basic Metabolic Panel Sent. ic1 14:44 Patient has correct armband on for positive identification. Bed in low position. Call ic1 light in reach. Side rails up X2. 14:44 No provider procedures requiring assistance completed. Inserted saline lock: 20 gauge ic1 in left antecubital area, using aseptic technique. Blood collected. 14:47 Jennifer Neff, RN is Primary Nurse. ic1 15:00 CT Abd/Pelvis - IV Contrast Only In Process Unspecified. EDMS 17:06 IV discontinued, intact, bleeding controlled, No redness/swelling at site. Pressure ic1 dressing applied. Administered Medications: 14:41 Drug: Ketorolac 15 mg Route: IVP; Site: left antecubital; ic1 14:58 Follow up: Response: No adverse reaction brandon 17:07 Follow up: Response: Pain is decreased ic1 14:42 Drug: Zofran (Ondansetron) 4 mg Route: IVP; Site: left antecubital; ic1 14:58 Follow up: Response: No adverse reaction brandon 14:42 Drug: Valium (diazepam) 2 mg Route: IVP; Site: left antecubital; ic1 14:58 Follow up: Response: No adverse reaction brandon 17:07 Follow up: Response: Pain is unchanged, physician notified ic1 16:06 Drug: morphine 2 mg Route: IVP; Site: left antecubital; ic1 17:07 Follow up: Response: Pain is decreased ic1 16:23 Drug: Lidoderm Patch 5 % (700 mg/patch) 1 patches {Note: left lower back.} Route: ic1 Topical; Site: affected area; 17:06 Follow up: Response: Pain is decreased ic1 16:23 Drug: fentaNYL (PF) 50 mcg Route: IVP; Site: left antecubital; ic1 Outcome: 16:53 Discharge ordered by . amy 17:03 Discharged to home ambulatory, with significant other. ic1 17:03 Condition: stable 17:03 Discharge instructions given to patient, Instructed on discharge instructions, follow up and referral plans. Demonstrated understanding of instructions, follow-up care, medications, Prescriptions given X 2. 17:07 Patient left the ED. ic1 Signatures: Dispatcher [employer] EDMS Mann Nicholson PA PA jmm Rivera Bria mr Natalie Garcia RN RN Ana Cristina-Jennifer Johnson, RN RN Jennifer Barrientos RN RN ic1
--- NOTE | 2021-11-29 16:54 | EDPHYS ---
Physician Documentation [facility] Name: Joy Soler Age: 61 yrs Sex: Female : 1960 Arrival Date: 11/29/2021 Time: 13:26 Bed 14 Private MD: ED Physician Moustapha Soliz HPI: 11/29 13:52 This 61 yrs old Black Female presents to ER via Ambulatory with complaints of Flank jmm Pain. 13:52 The patient complains of pain in the left flank. Onset: The symptoms/episode jmm began/occurred gradually, 1 day(s) ago. Modifying factors: The symptoms are alleviated by nothing. the symptoms are aggravated by movement, Heating pad. Associated signs and symptoms: Pertinent negatives: diarrhea, dizziness, dysuria, fever, urinary frequency, headache, hematuria, nausea, pain radiating to the lower extremities, vomiting. The patient has not experienced similar symptoms in the past. Patient denies known injury. Historical: - Allergies: 13:44 No Known Allergies; ph - PMHx: 13:44 Hypertension; ph - Immunization history:: Client reports receiving the 2nd dose of the Covid vaccine, Client reports receiving the Param \T\ Param single-dose vaccine. - Social history:: Smoking status: Patient/guardian denies using tobacco, Stopped _ months ago 9. ROS: 13:52 Constitutional: Negative for fever, chills, and weight loss, Cardiovascular: Negative jmm for chest pain, palpitations, and edema, Respiratory: Negative for shortness of breath, cough, wheezing, and pleuritic chest pain, Abdomen/GI: Negative for abdominal pain, nausea, vomiting, diarrhea, and constipation. 13:52 Back: Positive for pain with movement, Negative for injury or acute deformity. 13:52 All other systems are negative. Exam: 13:52 Constitutional: This is a well developed, well nourished patient who is awake, alert, jmm and in no acute distress. Head/Face: atraumatic. Eyes: EOMI, no conjunctival erythema appreciated ENT: Moist Mucus Membranes Neck: Trachea midline, Supple Chest/axilla: Normal chest wall appearance and motion. Cardiovascular: Regular rate and rhythm. No edema appreciated Respiratory: Normal respirations, no respiratory distress appreciated Abdomen/GI: Non distended, soft 13:52 Back: pain, is absent, ROM is normal, vertebral tenderness, is not appreciated, Pain on palpation of the left L1 paraspinal region, no midline tenderness appreciated. 13:52 Musculoskeletal/extremity: ROM: intact in all extremities. 13:52 Skin: Appearance: Color: normal in color. 13:52 Neuro: Orientation: is normal, Mentation: is normal, Memory: is normal. 13:52 Psych: Behavior/mood is pleasant, cooperative. Vital Signs: 13:44 BP 157 / 107; Pulse 92; Resp 18; Temp 97.9; Pulse Ox 100% on R/A; Weight 89.36 kg; ph Height 5 ft. 6 in. (167.64 cm); 14:44 BP 113 / 92; Pulse 88; Resp 18; Pulse Ox 98% ; ic1 16:24 BP 126 / 92; Pulse 89; Resp 18; Pulse Ox 99% ; ic1 13:44 Body Mass Index 31.80 (89.36 kg, 167.64 cm) ph MDM: 14:19 Patient medically screened. [facility] 16:53 Data reviewed: vital signs, nurses notes. Counseling: I had a detailed discussion with amy the patient and/or guardian regarding: the historical points, exam findings, and any diagnostic results supporting the discharge/admit diagnosis, radiology results, the need for outpatient follow up, to return to the emergency department if symptoms worsen or persist or if there are any questions or concerns that arise at home. 11/29 13:52 Order name: Urine Dipstick-Ancillary; Complete Time: 14:13 [facility] 11/29 14:13 Order name: Basic Metabolic Panel; Complete Time: 14:51 [facility] 11/29 14:13 Order name: CBC with Diff; Complete Time: 14:51 [facility] 11/29 14:13 Order name: Hepatic Function; Complete Time: 14:51 [facility] 11/29 14:13 Order name: Lipase; Complete Time: 14:51 [facility] 11/29 14:20 Order name: CT Abd/Pelvis - IV Contrast Only; Complete Time: 15:19 [facility] 11/29 14:13 Order name: IV Saline Lock; Complete Time: 14:42 [facility] 11/29 14:13 Order name: Labs collected and sent; Complete Time: 14:42 [facility] Administered Medications: 14:41 Drug: Ketorolac 15 mg Route: IVP; Site: left antecubital; ic1 14:58 Follow up: Response: No adverse reaction brandon 17:07 Follow up: Response: Pain is decreased ic1 14:42 Drug: Zofran (Ondansetron) 4 mg Route: IVP; Site: left antecubital; ic1 14:58 Follow up: Response: No adverse reaction brandon 14:42 Drug: Valium (diazepam) 2 mg Route: IVP; Site: left antecubital; ic1 14:58 Follow up: Response: No adverse reaction brandon 17:07 Follow up: Response: Pain is unchanged, physician notified ic1 16:06 Drug: morphine 2 mg Route: IVP; Site: left antecubital; ic1 17:07 Follow up: Response: Pain is decreased ic1 16:23 Drug: Lidoderm Patch 5 % (700 mg/patch) 1 patches {Note: left lower back.} Route: ic1 Topical; Site: affected area; 17:06 Follow up: Response: Pain is decreased ic1 16:23 Drug: fentaNYL (PF) 50 mcg Route: IVP; Site: left antecubital; ic1 Disposition Summary: 11/29/21 16:53 Discharge Ordered Location: Home [facility] Condition: Stable [facility] Diagnosis - Low back pain [facility] Followup: [facility] - With: Private Physician - When: 2 - 3 days - Reason: Recheck today's complaints, Continuance of care, Re-evaluation by your physician Discharge Instructions: - Discharge Summary Sheet [facility] - Acute Back Pain, Adult [facility] Forms: - Medication Reconciliation Form [facility] - Thank You Letter [facility] - Antibiotic Education [facility] - Prescription Opioid Use [facility] Prescriptions: - Diclofenac Sodium 75 mg Oral Tablet Sustained Release - take 1 tablet by ORAL route 2 times per day; 30 tablet; Refills: 0, Product [facility] Selection Permitted - orphenadrine citrate 100 mg Oral Tablet Sustained Release - take 1 tablet by ORAL route 2 times per day As needed; 20 tablet; Refills: 0, [facility] Product Selection Permitted Addendum: 12/01/2021 06:28 Co-signature as Attending Physician, Moustapha Soliz MD I agree with the assessment and k dr plan of care. Signatures: Dispatcher [employer] Moustapha Cote MD MD kdr Mickail, Joel, PA PA Natalie Rodarte RN RN ph Creggett, Iesha, RN RN ic1 Au-Stager, Jennifer RN brandon
[2021-11-29 17:17] VITALS: TEMP 97.9
[2021-11-29 17:20] VITALS: BP 126/92; O2SAT 99
== END 2021-11-29 17:07 | disposition home or self-care (01) ==
LOC: ER 13:23
DX: M54.50 Low back pain, unspecified (principal)
CPT/HCPCS: 85025; 80048; 36415; 80076; 81003; 83690; 74177; 96375; 96374; 99284; Q9967; J3360; J3010; J2270; J2405

== ENCOUNTER 2023-11-22 12:45 | Observation (INO) | payer OTHER, SELFPAY ==
--- OUTSIDE RECORDS SUMMARY | 2023-11-22 12:49 | XMS REPORT | Continuity of Care Document ---
Author Name Unknown Address [address] [place] [address] [facility]connect Address [address] [place] [address] Care Team Providers Care Cisco Administrator Name Role Phone Kristine Ramírez Primary Care Physician BEN LINARES Attending Clinician Unavailable LISA RICHARDSON Attending Clinician Unavailable MARICARMEN JONES Attending Clinician Unava ilable [id number] Attending Clinician Unavailable ISABELLA DONALDSON Attending Clinician Unavailable LATOYA GARDUNO Attending Clinician Unavail able KARLEY NAVARRO Attending Clinician Unavailabl e LAB90 Attending Clinician Unavailable MICHELLE MERCADO Attending Clinician Unav ailTaylor Devine Attending Clinician [phone] TAYLOR RODRIGUEZ Attending Clinician Unavailable Payers Payer Name Policy Type Policy Number Effective Date Expirati on Date Source [employer] [facility] O [employer] 94 ON 9 [id number] 2023 00:00:00 Problems Condition Name Condition Details Condition Category Status Onset Date Resolution Date Last Treatment Date Treating Clinician Comments Source Anxiety Anxiety Disease Active 05-21 00:00: 00 Kathleen paredes Bipolar 1 disorder (multi HCC) Bipolar 1 disorder (multi HCC) Disease Active 05-21 00:00: 00 Kathleen paredes Prediabete s Prediabete s Disease Active 2023-0 8-04 00:00: 00 Kathleen paredes Hepatitis C antibody test positive Hepatitis C antibody test positive Disease Active 04-16 00:00: 00 Kathleen paredes Chronic hepatitis C without hepatic coma Chronic hepatitis C without hepatic coma Disease Active 04-16 00:00: 00 Kathleen paredes 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 back pain with left-sided sciatica Disease Active 04-16 00:00: 00 Kathleen paredes Rheumatoid arthritis (multi HCC) Rheumatoid arthritis (multi HCC) Disease Active 04-16 00:00: 00 Kathleen paredes Allergies, Adverse Reactions, Alerts Allergy Name Allergy Type Status Severity Reaction(s) Onset Date Inactive Date Treating Clinician Comments Source [place] - Intraven ous Propensi ty to adverse reaction to drug Active 04-15 00:00: 00 Codeine Propensi ty to adverse reaction s Active 04-15 00:00: 00 Kathleen paredes NO KNOWN ALLERGIE S Drug Class Active [facility] Social History Social Habit Start Date Stop Date Quantity Comments Source Exposure to SARS-CoV-2 (event) Not sure [facility] Gender identity Cherri Adrian - External Sexual orientation Gabriel Adrian - External Alcohol intake 2023-08-20 00:00:00 2023-08-20 00:00:00 Ex-drinker (finding) Kathleen Adrian - External History of Social function 2023-07-10 00:00:00 2023-07-10 00:00:00 Kathleen Adrian - Abdirahman Cigarettes smoked current (pack per day) - Reported 2023-03-23 00:00:00 2023-03-23 00:00:00 Kathleen Fontaine External Tobacco Comment 2023-03-23 00:00:00 2023-03-23 00:00:00 Restarted smoking - 1/4 pack a day. Kathleen Adrian - External Cigarette pack-years 2023-03-23 00:00:00 2023-03-23 00:00:00 Kathleen Adrian - External Tobacco use and exposure 2023-03-23 00:00:00 2023-03-23 00:00:00 Smokeless tobacco non-user Kathleen Adrian - External Alcohol Comment 2023-01-22 00:00:00 2023-01-22 00:00:00 Alcoholic stopped 6 years ago Kathleen Kaylah - External History of tobacco use 2020-10-18 00:00:00 Cigarette Smoker Kathleen Kaylah - External Sex Ass[birth year] At 1960 00:00:00 1960 00:00:00 Kathleen Kaylah - External Smoking Status Start Date Stop Date Source Unknown if ever smoked [facility] Ex-smoker 2023-03-23 00:00:00 2023-03-23 00:00:00 Gabriel segundo Seeric - External Medications Ordered Medication Name Filled Medication Name Start Date Stop Date Current Medication? Ordering Clinician Indication Dosage Frequency Signature (SIG) Comments Components Source HYDROcodone -Acetaminop hen (NORCO) 5-325 MG oral Tablet 2022-10 09:15: 14 Yes 1{tbl} Q.25D Take 1 tablet by mouth every 6 hours as needed for pain. Kathleen paredes HYDROcodone -Acetaminop hen (NORCO) 5-325 MG oral Tablet 2022-10 07:42: 11 08-20 00:00 :00 No 1{tbl} Q.25D Take 1 tablet by mouth every 6 hours as needed for pain. Kathleen paredes Amlodipine Besylate (NORVASC) 5 MG oral Tablet 2022-10 00:00: 00 Yes [id number] 5mg Take 1 tablet (5 mg total) by mouth daily. Kathleen paredes Alprazolam 1 MG oral Tablet 2022-10 00:00: 00 Yes [id number] 1mg TAKE 1 TABLET BY MOUTH 2 TIMES DAILY Kathleen paredes FLUTICASONE PROPIONATE, NASAL, 50 MCG/ACT nasal Suspension 2022-10 0 00:00: 00 Yes USE 1 SPRAY IN EACH NOSTRIL ONCE A DAY Kathleen paredes HYDROcodone -Acetaminop hen (NORCO) 5-325 MG oral Tablet 07-07 14:15: 32 Yes 1{tbl} Q.25D Take 1 tablet by mouth every 6 hours as needed for pain. Kathleen Marmolejokarinanola Fontaine Nunojeanie lena HYDROcodone -Acetaminop hen (NORCO) 5-325 MG oral Tablet 07-07 14:15: 32 Yes 1{tbl} Q.25D Take 1 tablet by mouth every 6 hours as needed for pain. Kathleen Marmolejokarinanola Zhen Reinajeanie lena FLUTICASONE PROPIONATE, NASAL, 50 MCG/ACT nasal Suspension 07-07 14:13: 07-07 00:00 :00 No 50ug Use 1 spray (50 mcg total) in each nostril daily Kathleen Marmolejokarinanola Zhen paredes FLUTICASONE PROPIONATE, NASAL, 50 MCG/ACT nasal Suspension 07-07 14:13: 07-07 00:00 :00 No 50ug Use 1 spray (50 mcg total) in each nostril daily Kathleen Marmolejokarinanola Zhen Reinajeanie lena Sod Picosulfate -Mag Ox-Cit Acd (Clenpiq) 10-3.5-12 MG-GM -GM/175ML oral Solution 07-07 00:00: 00 Yes [id number] Instructio ns provided to patient. Follow instructio ns provided by provider.. Kathleen Marmolejokarinanola Sinha lena Sod Picosulfate -Mag Ox-Cit Acd (Clenpiq) 10-3.5-12 MG-GM -GM/175ML oral Solution 07-07 00:00: 00 Yes [id number] Instructio ns provided to patient. Follow instructio ns provided by provider.. Kathleen Marmolejokarinanola Fontaine Nunojeanie lena Sod Picosulfate -Mag Ox-Cit Acd (Clenpiq) 10-3.5-12 MG-GM -GM/175ML oral Solution 07-07 00:00: 00 08-20 00:00 :00 No [id number] Instructio ns provided to patient. Follow instructio ns provided by provider.. Kathleen Kaylah paredes Alprazolam 1 MG oral Tablet 06-11 00:00: 00 Yes [id number] 1mg Take 1 tablet (1 mg total) by mouth 2 times daily. Kathleen paredes Alprazolam 1 MG oral Tablet 06-11 00:00: 00 Yes [id number] 1mg Take 1 tablet (1 mg total) by mouth 2 times daily. Kathleen paredes hydroCHLORO thiazide 12.5 MG oral Tablet 05-21 11:45: 48 05-21 00:00 :00 No 12.5mg Take 1 tablet (12.5 mg total) by mouth daily Kathleen paredes Albuterol HFA 108 (90 Base) MCG/ACT IN AERS 05-21 11:45: 48 05-21 00:00 :00 No 2{puff} Q.25D Inhale 2 puffs into the lungs every 6 hours as needed Kathleen paredes AMLODIPINE BENZOATE OR 05-21 11:44: 09 05-21 00:00 :00 No 5mg Take 5 mg by mouth daily Kathleen paredes Gabapentin 300 MG oral Capsule 05-21 00:00: 00 Yes [id number] 300mg Take 1 capsule (300 mg total) by mouth 2 times daily Kathleen paredes Amlodipine Besylate (NORVASC) 5 MG oral Tablet 05-21 00:00: 00 Yes [id number] 5mg Take 1 tablet (5 mg total) by mouth daily Kathleen paredes hydroCHLORO thiazide 12.5 MG oral Tablet 05-21 00:00: 00 Yes [id number] 12.5mg Take 1 tablet (12.5 mg total) by mouth daily Kathleen paredes Atorvastati n Calcium (Lipitor) 10 MG oral Tablet 05-21 00:00: 00 Yes [id number] 10mg Take 1 tablet (10 mg total) by mouth nightly Kathleen paredes Albuterol HFA 108 (90 Base) MCG/ACT IN AERS 05-21 00:00: 00 Yes [id number] 2{puff} Q.25D Inhale 2 puffs into the lungs every 6 hours as needed for wheezing or shortness of breath Kathleen Adrian - Externa l Amlodipine Besylate (NORVASC) 5 MG oral Tablet 05-21 00:00: 00 Yes [id number] 5mg Take 1 tablet (5 mg total) by mouth daily Kathleen Adrian - Externa l hydroCHLORO thiazide 12.5 MG oral Tablet 05-21 00:00: 00 Yes [id number] 12.5mg Take 1 tablet (12.5 mg total) by mouth daily Kathleen Adrian - Externa l Atorvastati n Calcium (Lipitor) 10 MG oral Tablet 05-21 00:00: 00 Yes [id number] 10mg Take 1 tablet (10 mg total) by mouth nightly Kathleen Adrian - Externa l Albuterol HFA 108 (90 Base) MCG/ACT IN AERS 05-21 00:00: 00 Yes [id number] 2{puff} Q.25D Inhale 2 puffs into the lungs every 6 hours as needed for wheezing or shortness of breath Kathleen Adrian - Externa l Amlodipine Besylate (NORVASC) 5 MG oral Tablet 05-21 00:00: 00 Yes [id number] 5mg Take 1 tablet (5 mg total) by mouth daily Kathleen Adrian - Externa l hydroCHLORO thiazide 12.5 MG oral Tablet 05-21 00:00: 00 Yes [id number] 12.5mg Take 1 tablet (12.5 mg total) by mouth daily Kathleen Adrian - Externa l Atorvastati n Calcium (Lipitor) 10 MG oral Tablet 05-21 00:00: 00 Yes [id number] 10mg Take 1 tablet (10 mg total) by mouth nightly Kathleen Adrian - Externa l Albuterol HFA 108 (90 Base) MCG/ACT IN AERS 05-21 00:00: 00 Yes [id number] 2{puff} Q.25D Inhale 2 puffs into the lungs every 6 hours as needed for wheezing or shortness of breath Kathleen Adrian - Externa l hydroCHLORO thiazide 12.5 MG oral Tablet 05-21 00:00: 00 Yes [id number] 12.5mg Take 1 tablet (12.5 mg total) by mouth daily Kathleen paredes Atorvastati n Calcium (Lipitor) 10 MG oral Tablet 05-21 00:00: 00 Yes [id number] 10mg Take 1 tablet (10 mg total) by mouth nightly Kathleen paredes Albuterol HFA 108 (90 Base) MCG/ACT IN AERS 05-21 00:00: 00 Yes [id number] 2{puff} Q.25D Inhale 2 puffs into the lungs every 6 hours as needed for wheezing or shortness of breath Kathleen paredes Amlodipine Besylate (NORVASC) 5 MG oral Tablet 05-21 00:00: 00 08-20 00:00 :00 No [id number] 5mg Take 1 tablet (5 mg total) by mouth daily Kathleen paredes Gabapentin 300 MG oral Capsule 05-21 00:00: 00 07-07 00:00 :00 No [id number] 300mg Take 1 capsule (300 mg total) by mouth 2 times daily Kathleen paredes Gabapentin 300 MG oral Capsule 05-21 00:00: 00 07-07 00:00 :00 No [id number] 300mg Take 1 capsule (300 mg total) by mouth 2 times daily Kathleen paredes Tizanidine HCl 2 MG oral Tablet 05-12 00:00: 00 05-21 00:00 :00 No [id number] 2mg QD TAKE 1 TABLET BY MOUTH NIGHTLY NEEDED FOR MUSCLE SPASMS. Kathleen paredes Alprazolam 1 MG oral Tablet 04-16 11:25: 00 Yes 1mg Take 1 tablet (1 mg total) by mouth 2 times daily Kathleen paredes FLUTICASONE PROPIONATE, NASAL, 50 MCG/ACT nasal Suspension 04-16 11:25: 00 Yes 50ug Use 1 spray (50 mcg total) in each nostril daily Kathleen paredes Alprazolam 1 MG oral Tablet 04-16 11:25: 00 Yes 1mg Take 1 tablet (1 mg total) by mouth 2 times daily Kathleen paredes AMLODIPINE BENZOATE OR 04-16 11:25: 00 Yes 5mg Take 5 mg by mouth daily Kathleen paredes hydroCHLORO thiazide 12.5 MG oral Tablet 04-16 11:25: 00 Yes 12.5mg Take 1 tablet (12.5 mg total) by mouth daily Kathleen paredes Albuterol HFA 108 (90 Base) MCG/ACT IN AERS 04-16 11:25: 00 Yes 2{puff} Q.25D Inhale 2 puffs into the lungs every 6 hours as needed Kathleen paredes FLUTICASONE PROPIONATE, NASAL, 50 MCG/ACT nasal Suspension 04-16 11:25: 00 Yes 50ug Use 1 spray (50 mcg total) in each nostril daily Kathleen paredes Gabapentin 300 MG oral Capsule 04-16 00:00: 00 Yes [id number] 300mg Take 1 capsule (300 mg total) by mouth 3 times daily Kathleen paredes Meloxicam 15 MG oral Tablet 04-16 00:00: 00 Yes [id number] 15mg Take 1 tablet (15 mg total) by mouth daily Kathleen paredes Tizanidine HCl 2 MG oral Tablet 04-16 00:00: 00 Yes [id number] 2mg QD Take 1 tablet (2 mg total) by mouth nightly as needed for muscle spasms Kathleen paredes Gabapentin 300 MG oral Capsule 04-16 00:00: 00 05-21 00:00 :00 No [id number] 300mg Take 1 capsule (300 mg total) by mouth 3 times daily Kathleen paredes Meloxicam 15 MG oral Tablet 04-16 00:00: 00 05-21 00:00 :00 No [id number] 15mg Take 1 tablet (15 mg total) by mouth daily Kathleen paredes Nicotine 21-14-7 MG/24HR transdermal Kit 04-09 00:00: 00 Yes [id number] Use per package directions Kathleen paredes Nicotine 21-14-7 MG/24HR transdermal Kit 04-09 00:00: 00 05-21 00:00 :00 No [id number] Use per package directions Kathleen paredes Atorvastati n Calcium (Lipitor) 10 MG oral Tablet 04-02 00:00: 00 Yes [id number] 10mg Take 1 tablet (10 mg total) by mouth daily Kathleen paredes Atorvastati n Calcium (Lipitor) 10 MG oral Tablet 04-02 00:00: 00 05-21 00:00 :00 No [id number] 10mg Take 1 tablet (10 mg total) by mouth daily Kathleen paredes Alprazolam 1 MG oral Tablet 03-23 15:19: 22 Yes 1mg Take 1 tablet (1 mg total) by mouth 2 times daily Kathleen paredes AMLODIPINE BENZOATE OR 03-23 15:19: 22 Yes 5mg Take 5 mg by mouth daily Kathleen paredes hydroCHLORO thiazide 12.5 MG oral Tablet 03-23 15:19: 22 Yes 12.5mg Take 1 tablet (12.5 mg total) by mouth daily Kathleen paredes Albuterol HFA 108 (90 Base) MCG/ACT IN AERS 03-23 15:19: 22 Yes 2{puff} Q.25D Inhale 2 puffs into the lungs every 6 hours as needed Kathleen paredes FLUTICASONE PROPIONATE, NASAL, 50 MCG/ACT nasal Suspension 03-23 15:19: 22 Yes 50ug Use 1 spray (50 mcg total) in each nostril daily Kathleen paredes Gabapentin 300 MG oral Capsule 03-23 00:00: 00 04-16 00:00 :00 No 300mg Take 1 capsule (300 mg total) by mouth at bedtime Kathleen paredes Alprazolam 1 MG oral Tablet 01-25 14:32: 31 Yes 1mg Take 1 tablet (1 mg total) by mouth 2 times daily Kathleen paredes AMLODIPINE BENZOATE OR 01-25 14:32: 31 Yes 5mg Take 5 mg by mouth daily Kathleen paredes hydroCHLORO thiazide 12.5 MG oral Tablet 01-25 14:32: 31 Yes 12.5mg Take 1 tablet (12.5 mg total) by mouth daily Kathleen paredes Albuterol HFA 108 (90 Base) MCG/ACT IN AERS 01-25 14:32: 31 Yes 2{puff} Q.25D Inhale 2 puffs into the lungs every 6 hours as needed Kathleen paredes FLUTICASONE PROPIONATE, NASAL, 50 MCG/ACT nasal Suspension 01-25 14:32: 31 Yes 50ug Use 1 spray (50 mcg total) in each nostril daily Kathleen paredes Meloxicam 7.5 MG oral Tablet 01-25 00:00: 00 Yes [id number] 7.5mg Take 1 tablet (7.5 mg total) by mouth daily Kathleen paredes Nicotine 21-14-7 MG/24HR transdermal Kit 01-25 00:00: 00 Yes [id number] Use per package directions Kathleen paredes Meloxicam 7.5 MG oral Tablet 01-25 00:00: 00 Yes [id number] 7.5mg Take 1 tablet (7.5 mg total) by mouth daily Kathleen paredes Nicotine 21-14-7 MG/24HR transdermal Kit 01-25 00:00: 00 Yes [id number] Use per package directions Kathleen paredes Meloxicam 7.5 MG oral Tablet 01-25 00:00: 00 04-16 00:00 :00 No [id number] 7.5mg Take 1 tablet (7.5 mg total) by mouth daily Kathleen paredes Amlodipine Besylate (NORVASC) 5 MG oral Tablet 01-01 00:00: 00 Yes 5mg Take 1 tablet (5 mg total) by mouth daily Kathleen paredes Amlodipine Besylate (NORVASC) 5 MG oral Tablet 01-01 00:00: 00 Yes 5mg Take 1 tablet (5 mg total) by mouth daily Kathleen paredes Amlodipine Besylate (NORVASC) 5 MG oral Tablet 01-01 00:00: 00 Yes 5mg Take 1 tablet (5 mg total) by mouth daily Kathleen paredes Amlodipine Besylate (NORVASC) 5 MG oral Tablet 01-01 00:00: 00 05-21 00:00 :00 No 5mg Take 1 tablet (5 mg total) by mouth daily Kathleen paredes Gabapentin 300 MG oral Capsule 12-22 00:00: 00 Yes 300mg Take 1 capsule (300 mg total) by mouth at bedtime Kathleen paredes Gabapentin 300 MG oral Capsule 12-22 00:00: 00 03-23 00:00 :00 No 300mg Take 1 capsule (300 mg total) by mouth at bedtime Kathleen paredes Dose Unknown 04-16 00:00: 00 No prednisone 20 mg tablet 04-15 00:00: 00 No mg TAKE 1 CAPSULE BY MOUTH AT BEDTIME 04-15 00:00: 00 No TAKE 1 TABLET BY MOUTH ONCE A DAY 04-15 00:00: 00 No TAKE 1 CAPSULE BY MOUTH EVERY DAY IN THE MORNING 04-15 00:00: 00 No TAKE 1 CAPSULE BY MOUTH EVERY DAY IN THE MORNING 04-15 00:00: 00 No TAKE 1 CAPSULE BY MOUTH AT BEDTIME 04-15 00:00: 00 No sumatriptan 50 mg tablet 2020-10 2- 00:00: 00 No 1mg diclofenac sodium 75 mg tablet,sushil yed release 2020-10 2- 00:00: 00 No 1mg sumatriptan 50 mg tablet 2020-10 0-23 00:00: 00 No 1mg diclofenac sodium 75 mg tablet,sushil yed release 1 0-23 00:00: 00 No 1mg diclofenac sodium 75 mg tablet,sushil yed release 0 9-16 00:00: 00 No 1mg ProAir HFA 90 mcg/actuati on aerosol inhaler 0 8-17 00:00: 00 No 12mcg/a ctuatio n sumatriptan 50 mg tablet 0 8-17 00:00: 00 No 1mg diclofenac sodium 75 mg tablet,sushil yed release 0 8-17 00:00: 00 No 1mg simvastatin 20 mg tablet 0 8-17 00:00: 00 No 1mg methotrexat e sodium 2.5 mg tablet 0 8-17 00:00: 00 No 3mg ProAir HFA 90 mcg/actuati on aerosol inhaler 0 6-29 00:00: 00 No 12mcg/a ctuatio n diclofenac sodium 75 mg tablet,sushil yed release 0 6-29 00:00: 00 No 1mg methotrexat e sodium 2.5 mg tablet 0 6-29 00:00: 00 No 3mg indomethaci n 50 mg capsule 2020-0 6-23 00:00: 00 No 1mg indomethaci n 50 mg capsule 2020-0 5-10 00:00: 00 No 1mg simvastatin 20 mg tablet 2020-0 5-07 00:00: 00 No 1mg sumatriptan 50 mg tablet 2020-0 5-04 00:00: 00 No 1mg indomethaci n 50 mg capsule 2020-0 3-03 00:00: 00 No 1mg Colace 100 mg capsule 2020-0 1-13 00:00: 00 No 13mg indomethaci n 50 mg capsule 2019-1 1-20 00:00: 00 No 1mg methocarbam ol 750 mg tablet 2019-0 9-16 00:00: 00 No 1mg indomethaci n 50 mg capsule 0 9-16 00:00: 00 No 1mg methocarbam ol 750 mg tablet 2019-0 9-15 00:00: 00 No 1mg indomethaci n 50 mg capsule 0 9-15 00:00: 00 No 1mg indomethaci n 50 mg capsule 05-14 00:00: 00 No 1mg simvastatin 20 mg tablet 03-26 00:00: 00 No 1mg indomethaci n 50 mg capsule 03-26 00:00: 00 No 1mg prednisone 20 mg tablet 02-19 00:00: 00 No 1mg methocarbam ol 750 mg tablet 5- 00:00: 00 No 1mg gabapentin 400 mg capsule 5 00:00: 00 No 1mg diclofenac sodium 75 mg tablet,sushil yed release 0 3-31 00:00: 00 No 1mg diclofenac sodium 75 mg tablet,sushil yed release 0 2-25 00:00: 00 No 1mg venlafaxine ER 75 mg tablet,exte nded release 24 hr 214 00:00: 00 No 1mg prednisone 5 mg tablet 2-11 00:00: 00 No 1mg naproxen 500 mg tablet - 00:00: 00 No 1mg simvastatin 20 mg tablet 11-13 00:00: 00 No 1mg cyclobenzap rine 10 mg tablet 11-13 00:00: 00 No 1mg aripiprazol e 5 mg tablet 11-13 00:00: 00 No 1mg fluticasone propionate 50 mcg/actuati on nasal spray,suspe nsion 11-13 00:00: 00 No 1mcg/ac tuation simvastatin 20 mg tablet 2018-10 015 00:00: 00 No 1mg fluticasone propionate 50 mcg/actuati on nasal spray,suspe nsion 2018-10 015 00:00: 00 No 1mcg/ac tuation naproxen 500 mg tablet 2018-10 0-08 00:00: 00 No 1mg cyclobenzap rine 10 mg tablet 07-11 00:00: 00 No 1mg indomethaci n 50 mg capsule 24 00:00: 00 No 1mg fluticasone propionate 50 mcg/actuati on nasal spray,suspe nsion 03-14 00:00: 00 No 1mcg/ac tuation cyclobenzap rine 10 mg tablet 03-08 00:00: 00 No 1mg simvastatin 20 mg tablet 02-08 00:00: 00 No 1mg cyclobenzap rine 10 mg tablet 02-07 00:00: 00 No 1mg Vitamin D2 1,250 mcg (50,000 unit) capsule 01-22 00:00: 00 No 1(50,00 0 unit) metronidazo le 500 mg tablet 01-18 00:00: 00 No 1mg omeprazole 20 mg tablet,sushil yed release 01-18 00:00: 00 No 1mg clarithromy jarrell 500 mg tablet 01-18 00:00: 00 No 1mg cyclobenzap rine 10 mg tablet 01-18 00:00: 00 No 1mg Abilify 5 mg tablet 01-05 00:00: 00 No 51mg Norvasc 5 mg tablet 12-21 00:00: 00 No 1mg alprazolam 1 mg tablet 12-21 00:00: 00 No 1mg metronidazo le 500 mg tablet 12-21 00:00: 00 No 1mg fluconazole 150 mg tablet 12-21 00:00: 00 No mg hydrochloro thiazide 12.5 mg capsule 12-21 00:00: 00 No 1mg amlodipine 5 mg tablet 10-20 00:00: 00 No 1mg fluoxetine 40 mg capsule 01-21 00:00: 00 No 1mg Norvasc 5 mg tablet 12-17 00:00: 00 No 1mg cyclobenzap rine 10 mg tablet 12-17 00:00: 00 No 51mg fluoxetine 20 mg capsule 12-17 00:00: 00 No 1mg amoxicillin 500 mg tablet 01-08 00:00: 00 No 1mg Immunizations Ordered Immunization Name Filled Immunization Name Date Status Comments Source [facility] COVID-19 Vaccine 2021-10-02 00:00:00 Completed Covid-19 Vaccine ([email or web address]) 2021-10-02 00:00:00 Emilie Gary Covid-19 Vaccine ([email or web address]) 2021-10-02 00:00:00 Emilie Gary Covid-19 Vaccine ([facility]) Unknown Completed Kathleen Seybold - External Covid-19 Vaccine ([facility]) Unknown Completed Kathleen Seybold - External Covid-19 Vaccine ([facility]) Unknown Completed Kathleen Seybold - External Vital Signs Vital Name Observation Time Observation Value Comments S moralesce Systolic blood pressure 2023-08-20 14:06:00 138 mm[Hg] Kathleen Seybo ld - External Diastolic blood pressure 2023-08-20 14:06:00 84 mm[Hg] Kathleen Seybo ld - External Heart rate 2023-08-20 14:06:00 74 /min Kelse y Seybold - External Body temperature 2023-08-20 14:06:00 36.56 Cari Kathleen Seybold - External Respiratory rate 2023-08-20 14:06:00 18 /min Kathleen Seybold - External Body height 2023-08-20 14:06:00 167.6 cm Cherri ey Seybold - External Body weight 2023-08-20 14:06:00 98.09 kg Cherri ey Seybold - External BMI 2023-08-20 14:06:00 34.90 kg/m2 Cherri ey Seybold - External Oxygen saturation in Arterial blood by Pulse oximetry 2023-08-20 14:06:00 98 /min Kathleen Seybo ld - External Systolic blood pressure 2023-07-07 19:11:00 121 mm[Hg] Kathleen Seybo ld - External Diastolic blood pressure 2023-07-07 19:11:00 79 mm[Hg] Kathleen Seybo ld - External Heart rate 2023-07-07 19:11:00 97 /min Kelse y Seybold - External Respiratory rate 2023-07-07 19:11:00 16 /min Kathleen Seybold - External Body height 2023-07-07 19:11:00 167.6 cm Cherri ey Seybold - External Body weight 2023-07-07 19:11:00 95.255 kg Cherri ey Seybold - External BMI 2023-07-07 19:11:00 33.89 kg/m2 Cherri ey Seybold - External Heart rate 2023-05-21 15:56:00 88 /min Kelse y Seybold - External Body temperature 2023-05-21 15:56:00 36.61 Cari Kathleen Seybold - External Respiratory rate 2023-05-21 15:56:00 15 /min Kathleen Seybold - External Body height 2023-05-21 15:56:00 167.6 cm Cherri ey Seybold - External Body weight 2023-05-21 15:56:00 100.245 kg Cherri ey Seybold - External BMI 2023-05-21 15:56:00 35.67 kg/m2 Cherri ey Seybold - External Oxygen saturation in Arterial blood by Pulse oximetry 2023-05-21 15:56:00 99 /min Kathleen Seybo ld - External Systolic blood pressure 2023-04-16 16:23:00 121 mm[Hg] Kathleen Seybo ld - External Diastolic blood pressure 2023-04-16 16:23:00 83 mm[Hg] Kathleen Seybo ld - External Heart rate 2023-04-16 16:23:00 91 /min Kelse y Seybold - External Body temperature 2023-04-16 16:23:00 36.61 Cari Kathleen Seybold - External Respiratory rate 2023-04-16 16:23:00 14 /min Kathleen Seybold - External Body height 2023-04-16 16:23:00 167.6 cm Cherri ey Seybold - External Body weight 2023-04-16 16:23:00 94.802 kg Cherri ey Seybold - External BMI 2023-04-16 16:23:00 33.73 kg/m2 Cherri ey Seybold - External Oxygen saturation in Arterial blood by Pulse oximetry 2023-04-16 16:23:00 99 /min Kathleen Seybo ld - External Systolic blood pressure 2023-03-23 20:12:00 131 mm[Hg] Kathleen Seybo ld - External Diastolic blood pressure 2023-03-23 20:12:00 88 mm[Hg] Kathleen Seybo ld - External Heart rate 2023-03-23 20:12:00 111 /min Kelse y Seybold - External Respiratory rate 2023-03-23 20:12:00 16 /min Kathleen Seybold - External Body height 2023-03-23 20:12:00 167.6 cm Cherri ey Seybold - External Body weight 2023-03-23 20:12:00 94.802 kg Cherri ey Seybold - External BMI 2023-03-23 20:12:00 33.73 kg/m2 Cherri ey Seybold - External Systolic blood pressure 2023-01-25 19:27:00 130 mm[Hg] Kathleen Mckinneyo ld - External Diastolic blood pressure 2023-01-25 19:27:00 88 mm[Hg] Kathleen Mckinneyo ld - External Heart rate 2023-01-25 19:27:00 87 /min Alexandra y Seybold - External Body temperature 2023-01-25 19:27:00 36.17 Cari Kathleen Seybold - External Respiratory rate 2023-01-25 19:27:00 16 /min Kathleen Marmolejoybold - External Body height 2023-01-25 19:27:00 167.6 cm Cherri tillman Seybold - External Body weight 2023-01-25 19:27:00 97.16 kg Cherri tillman Seybold - External BMI 2023-01-25 19:27:00 34.57 kg/m2 Cherri tillman Seybold - External Oxygen saturation in Arterial blood by Pulse oximetry 2023-01-25 19:27:00 98 /min Kathleen Mckinneyo ld - External BP Systolic 2022-04-15 17:08:00 BP Diastolic 2022-04-15 17:08:00 Weight Measured 2022-04-15 17:08:00 197.00 pounds Height Measured 2022-04-15 17:08:00 66.50 inches Body Temperature 2022-04-15 17:08:00 Heart Rate 2022-04-15 17:08:00 Respiratory Rate 2022-04-15 17:08:00 BP Systolic 2021-09-26 14:58:00 127 mm[Hg] BP Diastolic 2021-09-26 14:58:00 83 mm[Hg] Weight Measured 2021-09-26 14:58:00 197.40 pounds Height Measured 2021-09-26 14:58:00 66.50 inches Body Temperature 2021-09-26 14:58:00 98.10 degrees Heart Rate 2021-09-26 14:58:00 76.00 /min Respiratory Rate 2021-09-26 14:58:00 17.00 /min BP Systolic 2021-06-03 14:55:00 121 mm[Hg] BP Diastolic 2021-06-03 14:55:00 78 mm[Hg] Weight Measured 2021-06-03 14:55:00 196.60 pounds Height Measured 2021-06-03 14:55:00 66.50 inches Body Temperature 2021-06-03 14:55:00 98.20 degrees Heart Rate 2021-06-03 14:55:00 93.00 /min Respiratory Rate 2021-06-03 14:55:00 17.00 /min BP Systolic 2021-02-18 10:53:00 125 mm[Hg] BP Diastolic 2021-02-18 10:53:00 85 mm[Hg] Weight Measured 2021-02-18 10:53:00 198.80 pounds Height Measured 2021-02-18 10:53:00 66.50 inches Body Temperature 2021-02-18 10:53:00 98.20 degrees Heart Rate 2021-02-18 10:53:00 100.00 /min Respiratory Rate 2021-02-18 10:53:00 17.00 /min BP Systolic 2021-01-01 11:10:00 132 mm[Hg] BP Diastolic 2021-01-01 11:10:00 84 mm[Hg] Weight Measured 2021-01-01 11:10:00 206.40 pounds Height Measured 2021-01-01 11:10:00 66.50 inches Body Temperature 2021-01-01 11:10:00 99.30 degrees Heart Rate 2021-01-01 11:10:00 102.00 /min Respiratory Rate 2021-01-01 11:10:00 18.00 /min BP Systolic 2020-10-30 09:29:00 124 mm[Hg] BP Diastolic 2020-10-30 09:29:00 84 mm[Hg] Weight Measured 2020-10-30 09:29:00 204.60 pounds Height Measured 2020-10-30 09:29:00 66.50 inches Body Temperature 2020-10-30 09:29:00 99.20 degrees Heart Rate 2020-10-30 09:29:00 102.00 /min Respiratory Rate 2020-10-30 09:29:00 17.00 /min BP Systolic 2020-09-06 11:50:00 130 mm[Hg] BP Diastolic 2020-09-06 11:50:00 89 mm[Hg] Weight Measured 2020-09-06 11:50:00 201.80 pounds Height Measured 2020-09-06 11:50:00 66.50 inches Body Temperature 2020-09-06 11:50:00 Heart Rate 2020-09-06 11:50:00 87.00 /min Respiratory Rate 2020-09-06 11:50:00 17.00 /min BP Systolic 2020-07-02 15:03:00 141 mm[Hg] BP Diastolic 2020-07-02 15:03:00 91 mm[Hg] Weight Measured 2020-07-02 15:03:00 202.60 pounds Height Measured 2020-07-02 15:03:00 66.50 inches Body Temperature 2020-07-02 15:03:00 98.30 degrees Heart Rate 2020-07-02 15:03:00 93.00 /min Respiratory Rate 2020-07-02 15:03:00 16.00 /min BP Systolic 2020-02-20 08:50:00 118 mm[Hg] BP Diastolic 2020-02-20 08:50:00 77 mm[Hg] Weight Measured 2020-02-20 08:50:00 186.60 pounds Height Measured 2020-02-20 08:50:00 66.50 inches Body Temperature 2020-02-20 08:50:00 98.70 degrees Heart Rate 2020-02-20 08:50:00 103.00 /min Respiratory Rate 2020-02-20 08:50:00 18.00 /min BP Systolic 2020-01-16 11:13:00 128 mm[Hg] BP Diastolic 2020-01-16 11:13:00 88 mm[Hg] Weight Measured 2020-01-16 11:13:00 184.00 pounds Height Measured 2020-01-16 11:13:00 66.50 inches Body Temperature 2020-01-16 11:13:00 98.10 degrees Heart Rate 2020-01-16 11:13:00 102.00 /min Respiratory Rate 2020-01-16 11:13:00 18.00 /min Procedures Procedure Date / Time Performed Performing Clinicia n Source US ABDOMEN COMPLETE 2021-01-08 19:00:19 [facility] Rodriguez [facility] Plan of Care Planned Activity Planned Date Details Comments Source Goal Plan of Care Note [code = 35067-6] Goal Plan of Care Note [code = 12879-3] Goal Plan of Care Note [code = 36307-3] Goal Plan of Care Note [code = 34941-2] Goal Plan of Care Note [code = 42818-9] Goal Plan of Care Note [code = 46388-0] Goal Plan of Care Note [code = 27022-6] Goal Plan of Care Note [code = 61717-4] Goal Plan of Care Note [code = 10300-6] Goal Plan of Care Note [code = 03062-6] Goal Plan of Care Note [code = 90383-4] Goal Plan of Care Note [code = 68594-2] Goal Plan of Care Note [code = 71113-0] Goal Plan of Care Note [code = 52832-7] Goal Plan of Care Note [code = 87826-6] Goal Plan of Care Note [code = 98138-9] Goal Plan of Care Note [code = 60052-8] Goal Plan of Care Note [code = 25181-7] Goal Plan of Care Note [code = 97066-5] Goal Plan of Care Note [code = 96559-0] Goal Plan of Care Note [code = 75945-7] Goal Plan of Care Note [code = 86070-0] Goal Plan of Care Note [code = 19646-7] Goal Plan of Care Note [code = 66276-2] Goal Plan of Care Note [code = 04990-8] Goal Plan of Care Note [code = 05909-2] Goal Plan of Care Note [code = 69202-9] Goal Plan of Care Note [code = 01629-4] Goal Plan of Care Note [code = 60283-4] Goal Plan of Care Note [code = 29598-7] Goal Plan of Care Note [code = 23142-7] Goal Plan of Care Note [code = 76857-4] Goal Plan of Care Note [code = 31114-7] Goal Plan of Care Note [code = 50057-7] Encounters Start Date/Time End Date/Time Encounter Type Admission Type Attending Clinicians Care Facility Care Department Encounter ID Source 2023-12-29 15:30:00 2023-12-29 15:30:00 Outpatient PREBEN RUIZ KATHLEEN GAY [id number] [facility] 2023-12-02 09:30:00 2023-12-02 09:30:00 Outpatient PREZABEN Paris KATHLEEN GAY [id number] [facility] 2023-11-20 00:00:00 2023-11-20 00:00:00 Outpatient PREZABEN Paris KATHLEEN GAY [id number] [facility] 2023-10-19 00:00:00 2023-10-19 00:00:00 Outpatient DEBRALISA POSADAS KATHLEEN GAY [id number] [facility] 2023-09-28 00:00:00 2023-09-28 00:00:00 Outpatient PREZASBEN KATHLEEN GAY [id number] [facility] 2023-09-06 00:00:00 2023-09-06 00:00:00 Outpatient LISA RICHARDSON KATHLEEN GAY [id number] [facility] 2023-09-01 00:00:00 2023-09-01 00:00:00 Outpatient LISA RICHARDSON KATHLEEN GAY [id number] [facility] 2023-08-31 13:30:00 2023-08-31 13:30:00 Outpatient KATHLEEN GAY [id number] [facility] 2023-08-30 00:00:00 2023-08-30 00:00:00 Outpatient PREZABEN Paris KATHLEEN GAY [id number] [facility] 2023-08-24 00:00:00 2023-08-24 00:00:00 Outpatient KATHLEEN GAY [id number] [facility] 2023-08-20 09:15:00 2023-08-20 09:15:00 Outpatient PREZABEN Paris KATHLEEN GAY [id number] [facility] 2023-08-20 00:00:00 2023-08-20 00:00:00 Outpatient PREZASGAMALIELBENARMANDO GAY [id number] [facility] 2023-08-17 00:00:00 2023-08-17 00:00:00 Outpatient PREZAS, BEN GAY KATHLEEN [id number] [facility] 2023-08-04 11:00:00 2023-08-04 11:00:00 Outpatient KATHLEEN KATHLEEN [id number] [facility] 2023-08-04 09:00:00 2023-08-04 09:00:00 Outpatient KATHLEEN KATHLEEN [id number] [facility] 2023-08-02 00:00:00 2023-08-02 00:00:00 Outpatient MARICARMEN JONES KATHLEEN GAY [id number] [facility] 2023-07-30 00:00:00 2023-07-30 00:00:00 Outpatient PREZAS, BEN KATHLEEN KATHLEEN [id number] [facility] 2023-07-12 00:00:00 2023-07-12 00:00:00 Outpatient ROBERT MARICARMEN KATHLEEN GAY [id number] [facility] 2023-07-12 00:00:00 2023-07-12 00:00:00 Outpatient PREZAS, BEN KATHLEEN KATHLEEN [id number] [facility] 2023-07-07 15:00:00 2023-07-07 15:00:00 Outpatient HORACIO KATHLEEN GAY [id number] [facility] 2023-07-07 14:30:00 2023-07-07 14:30:00 Outpatient JOSÉ MIGUEL RICHARDSONEL KATHLEEN GAY [id number] [facility] 2023-06-11 00:00:00 2023-06-11 00:00:00 Outpatient PREZAS, BEN KATHLEEN GAY [id number] [facility] 2023-06-10 00:00:00 2023-06-10 00:00:00 Outpatient PREZAS, BEN KATHLEEN GAY [id number] [facility] 2023-06-10 00:00:00 2023-06-10 00:00:00 Outpatient PREZAS, BEN KATHLEEN GYA [id number] [facility] 2023-05-25 00:00:00 2023-05-25 00:00:00 Outpatient ISABELLA DONALDSON KATHLEEN GAY [id number] [facility] 2023-05-24 00:00:00 2023-05-24 00:00:00 Outpatient ROBERT MARICARMEN GAY [id number] [facility] 2023-05-24 00:00:00 2023-05-24 00:00:00 Outpatient KATHLEEN GAY [id number] [facility] 2023-05-21 11:00:00 2023-05-21 11:00:00 Outpatient MILAGROS BEN GAY [id number] [facility] 2023-05-18 11:00:00 2023-05-18 11:00:00 Outpatient LATOYA GARDUNO KATHLEEN GAY [id number] [facility] 2023-05-12 00:00:00 2023-05-12 00:00:00 Outpatient BEN LINARES [id number] [facility] 2023-04-28 00:00:00 2023-04-28 00:00:00 Outpatient MARICARMEN JONES [id number] [facility] 2023-04-26 00:00:00 2023-04-26 00:00:00 Outpatient MARICARMEN JONES [id number] [facility] 2023-04-22 00:00:00 2023-04-22 00:00:00 Outpatient MARICARMEN JONES [id number] [facility] 2023-04-21 00:00:00 2023-04-21 00:00:00 Outpatient KATHLEEN GAY [id number] [facility] 2023-04-16 11:30:00 2023-04-16 11:30:00 Outpatient ELLIOTBEN RUIZ [id number] [facility] 2023-04-12 00:00:00 2023-04-12 00:00:00 Outpatient MARICARMEN JONES [id number] [facility] 2023-04-09 00:00:00 2023-04-09 00:00:00 Outpatient BEN LINARES [id number] [facility] 2023-04-06 11:30:00 2023-04-06 11:30:00 Outpatient KARLEY NAVARRO KATHLEEN GAY [id number] [facility] 2023-04-06 11:05:00 2023-04-06 11:05:00 Outpatient LABYosvany KATHLEEN GAY [id number] [facility] 2023-04-02 00:00:00 2023-04-02 00:00:00 Outpatient PREBEN RUIZ KATHLEEN GAY [id number] [facility] 2023-04-01 13:40:00 2023-04-01 13:40:00 Outpatient ROGELIOMICHELLE Gordillo KATHLEEN GAY [id number] [facility] 2023-03-31 00:00:00 2023-03-31 00:00:00 Outpatient BEN LINARES KATHLEEN GAY [id number] [facility] 2023-03-30 00:00:00 2023-03-30 00:00:00 Outpatient PREBEN RUIZ KATHLEEN GAY [id number] [facility] 2023-03-30 00:00:00 2023-03-30 00:00:00 Outpatient PREBEN RUIZ KATHLEEN GAY [id number] [facility] 2023-03-26 00:00:00 2023-03-26 00:00:00 Outpatient LATOYA GARDUNO KATHLEEN GAY [id number] [facility] 2023-03-26 00:00:00 2023-03-26 00:00:00 Outpatient MARICARMEN JONES [id number] [facility] 2023-03-26 00:00:00 2023-03-26 00:00:00 Outpatient KATHLEEN GAY [id number] [facility] 2023-03-25 00:00:00 2023-03-25 00:00:00 Outpatient MARICARMEN JONES [id number] [facility] 2023-03-23 15:40:00 2023-03-23 15:40:00 Outpatient LAB KATHLEEN GAY [id number] [facility] 2023-03-23 14:45:00 2023-03-23 14:45:00 Outpatient LATOYA GARDUNO KATHLEEN GAY [id number] [facility] 2023-03-10 00:00:00 2023-03-10 00:00:00 Outpatient ROBERTMARICARMEN CARLTON KATHLEEN GAY [id number] [facility] 2023-03-04 00:00:00 2023-03-04 00:00:00 Outpatient BEN LINARES KATHLEEN GAY [id number] [facility] 2023-02-04 00:00:00 2023-02-04 00:00:00 Outpatient ROBERTMARICARMEN CARLTON KATHLEEN GAY [id number] [facility] 2023-02-02 00:00:00 2023-02-02 00:00:00 Outpatient MARICARMEN JONES KATHLEEN GAY [id number] [facility] 2023-01-26 00:00:00 2023-01-26 00:00:00 Outpatient ISABELLA DONALDSON KATHLEEN GAY [id number] [facility] 2023-01-25 14:30:00 2023-01-25 14:30:00 Outpatient MARICARMEN JONES KATHLEEN GAY [id number] [facility] 2022-10-20 09:20:16 2022-10-20 09:20:16 Outpatient SFA SFA [id number] Erasmo Hess 2022-04-15 00:00:00 2022-04-15 00:00:00 Outpatient Visit [id number] 2021-01-08 12:50:52 2021-01-08 23:59:00 Hospital Encounter [facility] [id number] [facility] 2021-01-08 00:00:00 2021-01-08 00:00:00 Outpatient [facility] [id number] [facility] Results Test Description Test Time Test Comments Results Result Co mments Source HEMOGLOBIN [id number] 00:00:00* Test Item Value Reference Range Interpretation Commjulio césar nts HEMOGLOBIN A1c (test code = 87131) 6.1 % HEMOGLOBIN [id number] 00:00:00* Test Item Value Reference Range Interpretation Commjulio césar nts HEMOGLOBIN A1c (test code = 78688) 6.1 % LIPID [id number] 00:00:00* Test Item Value Reference Range Interpretation Comme nts CHOLESTEROL (test code = 2210) 228 MG/DL TRIGLYCERIDES (test code = 2232) 137 MG/DL HDL CHOLESTEROL (test code = 2220) 40 MG/DL CALC LDL CHOL (test code = 2237) 162 MG/DL RISK RATIO LDL/HDL (test cod e = 2238) 4.05 RATIO LIPID [id number] 00:00:00* Test Item Value Reference Range Interpretation Comme nts CHOLESTEROL (test code = 2210) 228 MG/DL TRIGLYCERIDES (test code = 2232) 137 MG/DL HDL CHOLESTEROL (test code = 2220) 40 MG/DL CALC LDL CHOL (test code = 2237) 162 MG/DL RISK RATIO LDL/HDL (test cod e = 2238) 4.05 RATIO US ABDOMEN [id number] 19:21:42Mildly diffusely echogenic liver can be seen with underlying hepaticsteatosis. No focal hepatic lesions identified to the extent visualized. No cholelithiasis.RIGHT UPPER QUADRANT ABDOMINAL SONOGRAM TECHNIQUE: Grayscale and limited color Doppler images of the right upperquadrant of the abdomen wereobtained. INDICATION: Alcohol dependence with concern for liver disease and ascites. COMPARISON: None available. FINDINGS: Liver is mildly echogenic but essentially normal echotexture. Normalhepatic surface contour. Liver measures 14.7 cm in craniocaudal dimension.No focal hepatic lesions identified to the extent visualized. Main portalvein is patent with normal hepatopedal flow. Main portal veinmeasures 0.9cm in AP diameter bibiana hepatis. Partial contracted gallbladder without cholelithiasis.No abnormalgallbladder wall thickening (3 mm) or pericholecystic [...] No free fluid in the upper abdomen. [facility], Radiant Results Inft User - 01/08/2021 2:22 PM CDTRIGHT UPPER QUADRANT ABDOMINAL SONOGRAMTECHNIQUE: Grayscale and limited color Doppler images of the right upperquadrant of the abdomen were obtained.INDICATION: Alcohol dependence with concern for liver disease and ascites.COMPARISON: None available.FINDINGS:Liver is mildly echogenic but essentially normal echotexture. Normalhepatic surface contour. Liver measures 14.7 cm in craniocaudal dimension.No focal hepatic lesions identified to the extent visualized. Main portalvein is patent with normal hepatopedal flow. Main portal vein measures 0.9cm in AP diameter bibiana hepatis.Partial contracted gallbladder without cholelithiasis. No abno rmalgallbladder wall thickening (3 mm) or pericholecystic free fluid. Negativesonographic Jang sign. CBD measures 0.4 mm in AP diameter at portahepatis, normal.Visualized portions of the pancreatichead and body appear unremarkable.Pancreatic tail is obscured by bowel gas.Right kidney measures 10.4 x 4.4 x 4.9 cm. Left kidney measures 11.2 x 5.7x 5.0 cm. There is no hydronephrosis or nephrolithiasis. There ispreservation of normal corticomedullary differentiation. No atrophy orcortical thinning.Spleen measures 9.6 cm and clinical dimension, normal.Proximal abdominal aorta measures 2.3 cm inAP diameter bibiana hepatis,normal. No abnormal aortic dilatation in the mid and distal portions.Visualized portions of the IVC appear unremarkable as well. No free fluid in the upper abdomen.IMPRESSIONMildly diffusely echogenic liver can be seen with underlying hepaticsteatosis.No focal hepatic lesions identified to the extent visualized.[facility]lithiasis[facility] [id number] 00:00:00* Test Item Value Reference Range Interpretation Comme nts WBC (test code = 1001) 6.6 K/UL RBC (test code = 1002) 4.53 M/UL HEMOGLOBIN (test code = 1003) 13.6 G/DL HEMATOCRIT (test code = 1004) 38.9 % MCV (test code = 1005) 85.9 fL MCH (test code = 1006) 30.0 PG MCHC (test code = 1007) 35.0 G/DL RDW (test code = 1038) 12.9 % NEUTROPHILS (test code = 1008) 50.3 % LYMPHOCYTES (test code = 1010) 38.9 % MONOCYTES (test code = 1011) 7.1 % EOSINOPHILS (test code = 1012) 2.9 % BASOPHILS (test code = 1013) 0.8 % PLATELET COUNT (test code = 1015) 343 K/UL CBC W/AUTO [id number] 00:00:00* Test Item Value Reference Range Interpretation Comme nts WBC (test code = 1001) 6.6 K/UL RBC (test code = 1002) 4.53 M/UL HEMOGLOBIN (test code = 1003) 13.6 G/DL HEMATOCRIT (test code = 1004) 38.9 % MCV (test code = 1005) 85.9 fL MCH (test code = 1006) 30.0 PG MCHC (test code = 1007) 35.0 G/DL RDW (test code = 1038) 12.9 % NEUTROPHILS (test code = 1008) 50.3 % LYMPHOCYTES (test code = 1010) 38.9 % MONOCYTES (test code = 1011) 7.1 % EOSINOPHILS (test code = 1012) 2.9 % BASOPHILS (test code = 1013) 0.8 % PLATELET COUNT (test code = 1015) 343 K/UL CBC W/AUTO [id number] 00:00:00* Test Item Value Reference Range Interpretation Comme nts WBC (test code = 1001) 6.6 K/UL RBC (test code = 1002) 4.53 M/UL HEMOGLOBIN (test code = 1003) 13.6 G/DL HEMATOCRIT (test code = 1004) 38.9 % MCV (test code = 1005) 85.9 fL MCH (test code = 1006) 30.0 PG MCHC (test code = 1007) 35.0 G/DL RDW (test code = 1038) 12.9 % NEUTROPHILS (test code = 1008) 50.3 % LYMPHOCYTES (test code = 1010) 38.9 % MONOCYTES (test code = 1011) 7.1 % EOSINOPHILS (test code = 1012) 2.9 % BASOPHILS (test code = 1013) 0.8 % PLATELET COUNT (test code = 1015) 343 K/UL COMPREHENSIVE METABOLIC [id number] 00:00:00* Test Item Value Reference Range Interpretation Comme nts GLUCOSE (test code = 2217) 123 MG/DL BUN (test code = 2208) 12 MG/DL CREATININE (test code = 2214) 0.82 MG/DL eGFR AMER. (test cod e = 49699) 90 ML/MIN/1.73 eGFR NON- AMER. (test code = 62664) 78 ML/MIN/1.73 CALC BUN/CREAT (test code = 2235) 15 RATIO SODIUM (test code = 2231) 141 MEQ/L POTASSIUM (test code = 2228) 3.9 MEQ/L CHLORIDE (test code = 2215) 102 MEQ/L CARBON DIOXIDE (test code = 2206) 26 MEQ/L CALCIUM (test code = 2209) 9.7 MG/DL PROTEIN, TOTAL (test code = 2229) 7.1 G/DL ALBUMIN (test code = 2201) 4.5 G/DL CALC GLOBULIN (test code = 2240) 2.6 G/DL CALC A/G RATIO (test code = 2234) 1.7 RATIO BILIRUBIN, TOTAL (test code = 2207) 0.3 MG/DL ALKALINE PHOSPHATASE (test code = 2204) 95 U/L AST (test code = 2218) 33 U/L ALT (test code = 2219) 40 U/L COMPREHENSIVE METABOLIC [id number] 00:00:00* Test Item Value Reference Range Interpretation Comme nts GLUCOSE (test code = 2217) 123 MG/DL BUN (test code = 2208) 12 MG/DL CREATININE (test code = 2214) 0.82 MG/DL eGFR AMER. (test cod e = 92924) 90 ML/MIN/1.73 eGFR NON- AMER. (test code = 32390) 78 ML/MIN/1.73 CALC BUN/CREAT (test code = 2235) 15 RATIO SODIUM (test code = 2231) 141 MEQ/L POTASSIUM (test code = 2228) 3.9 MEQ/L CHLORIDE (test code = 2215) 102 MEQ/L CARBON DIOXIDE (test code = 2206) 26 MEQ/L CALCIUM (test code = 2209) 9.7 MG/DL PROTEIN, TOTAL (test code = 2229) 7.1 G/DL ALBUMIN (test code = 2201) 4.5 G/DL CALC GLOBULIN (test code = 2240) 2.6 G/DL CALC A/G RATIO (test code = 2234) 1.7 RATIO BILIRUBIN, TOTAL (test code = 2207) 0.3 MG/DL ALKALINE PHOSPHATASE (test code = 2204) 95 U/L AST (test code = 2218) 33 U/L ALT (test code = 2219) 40 U/L [id number] 00:00:00* Test Item Value Reference Range Interpretation Comme nts ESTRADIOL (test code = 2505) 19.6 PG/ML [id number] 00:00:00* Test Item Value Reference Range Interpretation Comme nts ESTRADIOL (test code = 2505) 19.6 PG/ML [id number] 00:00:00* Test Item Value Reference Range Interpretation Comme nts ESTRADIOL (test code = 2505) 19.6 PG/ML [id number] 00:00:00* Test Item Value Reference Range Interpretation Comme nts PROGESTERONE (test code = 2790) <0.20 NG/ML [id number] 00:00:00* Test Item Value Reference Range Interpretation Comme nts PROGESTERONE (test code = 2790) <0.20 NG/ML CCP [id number] 00:00:00* Test Item Value Reference Range Interpretation Comme nts CCP IgG (test code = 11708) 3 UNITS CCP [id number] 00:00:00* Test Item Value Reference Range Interpretation Comme nts CCP IgG (test code = 22014) 3 UNITS CCP [id number] 00:00:00* Test Item Value Reference Range Interpretation Comme nts CCP IgG (test code = 27329) 3 UNITS VITAMIN D, 25 [id number] 00:00:00* Test Item Value Reference Range Interpretation Comme nts VITAMIN D, 25 OH (test code = 4958) 29 NG/ML VITAMIN D, 25 [id number] 00:00:00* Test Item Value Reference Range Interpretation Comme nts VITAMIN D, 25 OH (test code = 4958) 29 NG/ML H. PYLORI (BREATH)2019-02-08 00:00:00* Test Item Value Reference Range Interpretation Comme nts H. PYLORI (BREATH) (test cod e = 92269) NEGATIVE H. PYLORI (BREATH)2019-02-08 00:00:00* Test Item Value Reference Range Interpretation Comme nts H. PYLORI (BREATH) (test cod e = 24593) NEGATIVE RHEUMATOID FACTOR IgG, IgM, [id number] 00:00:00* Test Item Value Reference Range Interpretation Comme nts RHEUMATOID FACTOR IgG (test code = 86852) 3 Units RHEUMATOID FACTOR IgA (test code = 14137) 2 Units RHEUMATOID FACTOR IgM (test code = 47975) 69 Units RHEUMATOID FACTOR IgG, IgM, [id number] 00:00:00* Test Item Value Reference Range Interpretation Comme nts RHEUMATOID FACTOR IgG (test code = 88927) 3 Units RHEUMATOID FACTOR IgA (test code = 93095) 2 Units RHEUMATOID FACTOR IgM (test code = 64011) 69 Units URIC [id number] 00:00:00* Test Item Value Reference Range Interpretation Comme nts URIC ACID (test code = 2233) 4.8 MG/DL URIC [id number] 00:00:00* Test Item Value Reference Range Interpretation Comme nts URIC ACID (test code = 2233) 4.8 MG/DL VITAMIN D, 25 [id number] 00:00:00* Test Item Value Reference Range Interpretation Comme nts VITAMIN D, 25 OH (test code = 4958) 20 NG/ML VITAMIN D, 25 [id number] 00:00:00* Test Item Value Reference Range Interpretation Comme nts VITAMIN D, 25 OH (test code = 4958) 20 NG/ML IRON, [id number] 00:00:00* Test Item Value Reference Range Interpretation Comme nts IRON, SERUM (test code = 2222) 97 UG/DL IRON, [id number] 00:00:00* Test Item Value Reference Range Interpretation Comme nts IRON, SERUM (test code = 2222) 97 UG/DL SEDIMENTATION [id number] 00:00:00* Test Item Value Reference Range Interpretation Comme nts SEDIMENTATION RATE (test cod e = 1017) 28 MM/HOUR SEDIMENTATION [id number] 00:00:00* Test Item Value Reference Range Interpretation Comme nts SEDIMENTATION RATE (test cod e = 1017) 28 MM/HOUR HIGH SENSITIVITY [id number] 00:00:00* Test Item Value Reference Range Interpretation Comme nts HIGH SENSITIVITY CRP (test c ode = 82633) 2.2 MG/L HIGH SENSITIVITY [id number] 00:00:00* Test Item Value Reference Range Interpretation Comme nts HIGH SENSITIVITY CRP (test c ode = 46353) 2.2 MG/L GREGG (ANTI-NUCLEAR AB) WITH REFLEX [id number] 00:00:00* Test Item Value Reference Range Interpretation Comme nts ANTI-NUCLEAR ANTIBODIES (rosi t code = 3506) NEGATIVE GREGG (ANTI-NUCLEAR AB) WITH REFLEX [id number] 00:00:00* Test Item Value Reference Range Interpretation Comme nts ANTI-NUCLEAR ANTIBODIES (rosi t code = 3506) NEGATIVE COMPREHENSIVE METABOLIC [id number] 00:00:00* Test Item Value Reference Range Interpretation Comme nts GLUCOSE (test code = 2217) 101 MG/DL BUN (test code = 2208) 14 MG/DL CREATININE (test code = 2214) 0.84 MG/DL eGFR AMER. (test cod e = 76745) 89 ML/MIN/1.73 eGFR NON- AMER. (test code = 69765) 77 ML/MIN/1.73 CALC BUN/CREAT (test code = 2235) 17 RATIO SODIUM (test code = 2231) 139 MEQ/L POTASSIUM (test code = 2228) 4.3 MEQ/L CHLORIDE (test code = 2215) 97 MEQ/L CARBON DIOXIDE (test code = 2206) 29 MEQ/L CALCIUM (test code = 2209) 10.3 MG/DL PROTEIN, TOTAL (test code = 2229) 7.8 G/DL ALBUMIN (test code = 2201) 4.7 G/DL CALC GLOBULIN (test code = 2240) 3.1 G/DL CALC A/G RATIO (test code = 2234) 1.5 RATIO BILIRUBIN, TOTAL (test code = 2207) 0.3 MG/DL ALKALINE PHOSPHATASE (test code = 2204) 98 U/L AST (test code = 2218) 24 U/L ALT (test code = 2219) 29 U/L COMPREHENSIVE METABOLIC [id number] 00:00:00* Test Item Value Reference Range Interpretation Comme nts GLUCOSE (test code = 2217) 101 MG/DL BUN (test code = 2208) 14 MG/DL CREATININE (test code = 2214) 0.84 MG/DL eGFR AMER. (test cod e = 87609) 89 ML/MIN/1.73 eGFR NON- AMER. (test code = 82907) 77 ML/MIN/1.73 CALC BUN/CREAT (test code = 2235) 17 RATIO SODIUM (test code = 2231) 139 MEQ/L POTASSIUM (test code = 2228) 4.3 MEQ/L CHLORIDE (test code = 2215) 97 MEQ/L CARBON DIOXIDE (test code = 2206) 29 MEQ/L CALCIUM (test code = 2209) 10.3 MG/DL PROTEIN, TOTAL (test code = 2229) 7.8 G/DL ALBUMIN (test code = 2201) 4.7 G/DL CALC GLOBULIN (test code = 2240) 3.1 G/DL CALC A/G RATIO (test code = 2234) 1.5 RATIO BILIRUBIN, TOTAL (test code = 2207) 0.3 MG/DL ALKALINE PHOSPHATASE (test code = 2204) 98 U/L AST (test code = 2218) 24 U/L ALT (test code = 2219) 29 U/L THYROID II PROFILE (T3U, T4, T7, TSH)2019-01-06 00:00:00* Test Item Value Reference Range Interpretation Comme nts T-UPTAKE (test code = 2817) 30.2 % THYROX. BIND. CAPAC. (test c ode = 49250) 1.1 T4 (THYROXINE) (test code = 2819) 8.1 UG/DL CORRECTED T4 (FTI) (test cod e = 2820) 7.4 UG/DL TSH, THIRD GENERATION (test code = 2821) 1.060 UIU/ML THYROID II PROFILE (T3U, T4, T7, TSH)2019-01-06 00:00:00* Test Item Value Reference Range Interpretation Comme nts T-UPTAKE (test code = 2817) 30.2 % THYROX. BIND. CAPAC. (test c ode = 36337) 1.1 T4 (THYROXINE) (test code = 2819) 8.1 UG/DL CORRECTED T4 (FTI) (test cod e = 2820) 7.4 UG/DL TSH, THIRD GENERATION (test code = 2821) 1.060 UIU/ML CBC W/AUTO [id number] 00:00:00* Test Item Value Reference Range Interpretation Comme nts WBC (test code = 1001) 5.5 K/UL RBC (test code = 1002) 4.66 M/UL HEMOGLOBIN (test code = 1003) 13.5 G/DL HEMATOCRIT (test code = 1004) 39.5 % MCV (test code = 1005) 84.8 fL MCH (test code = 1006) 29.0 PG MCHC (test code = 1007) 34.2 G/DL RDW (test code = 1038) 12.6 % NEUTROPHILS (test code = 1008) 47.2 % LYMPHOCYTES (test code = 1010) 40.0 % MONOCYTES (test code = 1011) 8.6 % EOSINOPHILS (test code = 1012) 3.3 % BASOPHILS (test code = 1013) 0.9 % PLATELET COUNT (test code = 1015) 304 K/UL CBC W/AUTO [id number] 00:00:00* Test Item Value Reference Range Interpretation Comme nts WBC (test code = 1001) 5.5 K/UL RBC (test code = 1002) 4.66 M/UL HEMOGLOBIN (test code = 1003) 13.5 G/DL HEMATOCRIT (test code = 1004) 39.5 % MCV (test code = 1005) 84.8 fL MCH (test code = 1006) 29.0 PG MCHC (test code = 1007) 34.2 G/DL RDW (test code = 1038) 12.6 % NEUTROPHILS (test code = 1008) 47.2 % LYMPHOCYTES (test code = 1010) 40.0 % MONOCYTES (test code = 1011) 8.6 % EOSINOPHILS (test code = 1012) 3.3 % BASOPHILS (test code = 1013) 0.9 % PLATELET COUNT (test code = 1015) 304 K/UL CBC W/AUTO [id number] 00:00:00* Test Item Value Reference Range Interpretation Comme nts WBC (test code = 1001) 5.5 K/UL RBC (test code = 1002) 4.66 M/UL HEMOGLOBIN (test code = 1003) 13.5 G/DL HEMATOCRIT (test code = 1004) 39.5 % MCV (test code = 1005) 84.8 fL MCH (test code = 1006) 29.0 PG MCHC (test code = 1007) 34.2 G/DL RDW (test code = 1038) 12.6 % NEUTROPHILS (test code = 1008) 47.2 % LYMPHOCYTES (test code = 1010) 40.0 % MONOCYTES (test code = 1011) 8.6 % EOSINOPHILS (test code = 1012) 3.3 % BASOPHILS (test code = 1013) 0.9 % PLATELET COUNT (test code = 1015) 304 K/UL HEMOGLOBIN [id number] 00:00:00* Test Item Value Reference Range Interpretation Comme nts HEMOGLOBIN A1c (test code = 91323) 5.7 % HEMOGLOBIN [id number] 00:00:00* Test Item Value Reference Range Interpretation Comme nts HEMOGLOBIN A1c (test code = 81743) 5.7 % HEMOGLOBIN [id number] 00:00:00* Test Item Value Reference Range Interpretation Comme nts HEMOGLOBIN A1c (test code = 48211) 5.7 % LIPID [id number] 00:00:00* Test Item Value Reference Range Interpretation Comme nts CHOLESTEROL (test code = 2210) 272 MG/DL TRIGLYCERIDES (test code = 2232) 134 MG/DL HDL CHOLESTEROL (test code = 2220) 52 MG/DL CALC LDL CHOL (test code = 2237) 193 MG/DL RISK RATIO LDL/HDL (test cod e = 2238) 3.72 RATIO LIPID [id number] 00:00:00* Test Item Value Reference Range Interpretation Comme nts CHOLESTEROL (test code = 2210) 272 MG/DL TRIGLYCERIDES (test code = 2232) 134 MG/DL HDL CHOLESTEROL (test code = 2220) 52 MG/DL CALC LDL CHOL (test code = 2237) 193 MG/DL RISK RATIO LDL/HDL (test cod e = 2238) 3.72 RATIO PAP TEST, THINPREP, [id number] 00:00:00* Test Item Value Reference Range Interpretation Comme nts SOURCE: (test code = 8001) Cervical SLIDES: (test code = 8011) 1 LMP: (test code = 8021) NOT GIVEN SPECIMEN ADEQUACY: (test code = 05067) (NOTE) INTERPRETATION: (test code = 44920) NILM/NO EPITH. ABNORMALITY;SEE BELOW [facility]ACLE APPLICATIONS ANALYST: (test code = 8101) RONDA Rehman(ASCP)IAC QC TECHNOLOGIST: (test code = 8111) RONDA MARY(ASCP) LOCATION: (test code = 35186) (NOTE) CPT: (test code = 8140) (NOTE) PAP TEST, THINPREP, [id number] 00:00:00* Test Item Value Reference Range Interpretation Comme nts SOURCE: (test code = 8001) Cervical SLIDES: (test code = 8011) 1 LMP: (test code = 8021) NOT GIVEN SPECIMEN ADEQUACY: (test code = 66230) (NOTE) INTERPRETATION: (test code = 47855) NILM/NO EPITH. ABNORMALITY;SEE BELOW ORACLE APPLICATIONS ANALYST: (test code = 8101) RONDA Rehman(ASCP)[facility] QC TECHNOLOGIST: (test code = 8111) RONDA MARY(ASCP) LOCATION: (test code = 46545) (NOTE) CPT: (test code = 8140) (NOTE) VAGINAL PATHOGENS DNA [id number] 00:00:00* Test Item Value Reference Range Interpretation Comme nts HEIKE SPECIES (test code = 26365) POSITIVE G. VAGINALIS (test code = 23727) POSITIVE T. VAGINALIS (test code = 57526) NEGATIVE VAGINAL PATHOGENS DNA [id number] 00:00:00* Test Item Value Reference Range Interpretation Comme nts HEIKE SPECIES (test code = 29786) POSITIVE G. VAGINALIS (test code = 11755) POSITIVE T. VAGINALIS (test code = 80004) NEGATIVE HPV HIGH RISK WITH GENOTYPE, [id number] 00:00:00* Test Item Value Reference Range Interpretation Comme nts HPV HIGH RISK INTERP (test c ode = 81607) POSITIVE HPV 16 (test code = 15233) NEGATIVE HPV 18 (test code = 74340) NEGATIVE HPV, HR, OTHER GENOTYPES (te st code = 67040) POSITIVE HPV HIGH RISK WITH GENOTYPE, [id number] 00:00:00* Test Item Value Reference Range Interpretation Comme nts HPV HIGH RISK INTERP (test c ode = 49022) POSITIVE HPV 16 (test code = 00612) NEGATIVE HPV 18 (test code = 21683) NEGATIVE HPV, HR, OTHER GENOTYPES (te st code = 18390) POSITIVE HEPATITIS PROFILE (A,B,C)2018-12-14 00:00:00* Test Item Value Reference Range Interpretation Comme nts HEPATITIS A TOTAL AB (test c ode = 2725) REACTIVE HEPATITIS B SURF AG (test co de = 2739) NON-REACTIVE HEP B CORE TOTAL AB (test co de = 2729) NON-REACTIVE HEPATITIS B SURFACE AB (test code = 2737) NON-REACTIVE HEPATITIS C ANTIBODY (test c ode = 4675) REACTIVE HCV INDEX (test code = 69548) 1.63 INTERPRETATION HEPATITIS A: (test code = 2552) (NOTE) INTERPRETATION HEPATITIS B: (test code = 86908) (NOTE) INTERPRETATION HEPATITIS C: (test code = 73646) (NOTE) HEPATITIS PROFILE (A,B,C)2018-12-14 00:00:00* Test Item Value Reference Range Interpretation Comme nts HEPATITIS A TOTAL AB (test c ode = 2725) REACTIVE HEPATITIS B SURF AG (test co de = 2739) NON-REACTIVE HEP B CORE TOTAL AB (test co de = 2729) NON-REACTIVE HEPATITIS B SURFACE AB (test code = 2737) NON-REACTIVE HEPATITIS C ANTIBODY (test c ode = 4675) REACTIVE HCV INDEX (test code = 81208) 1.63 INTERPRETATION HEPATITIS A: (test code = 2552) (NOTE) INTERPRETATION HEPATITIS B: (test code = 33893) (NOTE) INTERPRETATION HEPATITIS C: (test code = 61574) (NOTE) HEPATITIS A IgM [REFLEX]2018-12-14 00:00:00* Test Item Value Reference Range Interpretation Comme nts HEPATITIS A IgM (test code = 2728) NON-REACTIVE HEPATITIS C [id number] 00:00:00* Test Item Value Reference Range Interpretation Comme nts HEPATITIS C GENOTYPE (test c ode = 54302) Not detected HEPATITIS C [id number] 00:00:00* Test Item Value Reference Range Interpretation Comme nts HEPATITIS C GENOTYPE (test c ode = 72520) Not detected HCV RNA, PCR [id number] 00:00:00* Test Item Value Reference Range Interpretation Comme nts HCV RNA, PCR QUANT (test code = 4571) NOT DETEC IU/ML HCV VIRAL LOG (test code = 00282) NOT DETEC LOGIU/ML HCV RNA, PCR [id number] 00:00:00* Test Item Value Reference Range Interpretation Comme nts HCV RNA, PCR QUANT (test code = 4571) NOT DETEC IU/ML HCV VIRAL LOG (test code = 28587) NOT DETEC LOGIU/ML HCV RNA, PCR [id number] 00:00:00* Test Item Value Reference Range Interpretation Comme nts HCV RNA, PCR QUANT (test code = 4571) NOT DETEC IU/ML HCV VIRAL LOG (test code = 97152) NOT DETEC LOGIU/ML HIV AB/AG COMBO RFLX [id number] 00:00:00* Test Item Value Reference Range Interpretation Comme nts HIV 1/2 4TH GEN, RFLX CONF ( test code = 3514) NON-REACTIVE HIV AB/AG COMBO RFLX [id number] 00:00:00* Test Item Value Reference Range Interpretation Comme nts HIV 1/2 4TH GEN, RFLX CONF ( test code = 3514) NON-REACTIVE [id number] 00:00:00* Test Item Value Reference Range Interpretation Comme nts TSH (test code = 2821) 1.08 UIU/ML HEMOGLOBIN [id number] 00:00:00* Test Item Value Reference Range Interpretation Comme nts HEMOGLOBIN A1c (test code = 50213) 5.6 % HEMOGLOBIN [id number] 00:00:00* Test Item Value Reference Range Interpretation Comme nts HEMOGLOBIN A1c (test code = 91424) 5.6 % HEMOGLOBIN [id number] 00:00:00* Test Item Value Reference Range Interpretation Comme nts HEMOGLOBIN A1c (test code = 39045) 5.6 % COMPREHENSIVE METABOLIC [id number] 00:00:00* Test Item Value Reference Range Interpretation Comme nts GLUCOSE (test code = 2217) 88 MG/DL BUN (test code = 2208) 13 MG/DL CREATININE (test code = 2214) 0.73 MG/DL eGFR AMER. (test cod e = 82277) 107 ML/MIN/1.73 eGFR NON- AMER. (test code = 59805) 92 ML/MIN/1.73 CALC BUN/CREAT (test code = 2235) 18 RATIO SODIUM (test code = 2231) 141 MEQ/L POTASSIUM (test code = 2228) 4.6 MEQ/L CHLORIDE (test code = 2215) 102 MEQ/L CARBON DIOXIDE (test code = 2206) 25 MEQ/L CALCIUM (test code = 2209) 9.4 MG/DL PROTEIN, TOTAL (test code = 2229) 7.1 G/DL ALBUMIN (test code = 2201) 4.5 G/DL CALC GLOBULIN (test code = 2240) 2.6 G/DL CALC A/G RATIO (test code = 2234) 1.7 RATIO BILIRUBIN, TOTAL (test code = 2207) 0.2 MG/DL ALKALINE PHOSPHATASE (test code = 2204) 90 U/L AST (test code = 2218) 20 U/L ALT (test code = 2219) 18 U/L COMPREHENSIVE METABOLIC [id number] 00:00:00* Test Item Value Reference Range Interpretation Comme nts GLUCOSE (test code = 2217) 88 MG/DL BUN (test code = 2208) 13 MG/DL CREATININE (test code = 2214) 0.73 MG/DL eGFR AMER. (test cod e = 07116) 107 ML/MIN/1.73 eGFR NON- AMER. (test code = 38055) 92 ML/MIN/1.73 CALC BUN/CREAT (test code = 2235) 18 RATIO SODIUM (test code = 2231) 141 MEQ/L POTASSIUM (test code = 2228) 4.6 MEQ/L CHLORIDE (test code = 2215) 102 MEQ/L CARBON DIOXIDE (test code = 2206) 25 MEQ/L CALCIUM (test code = 2209) 9.4 MG/DL PROTEIN, TOTAL (test code = 2229) 7.1 G/DL ALBUMIN (test code = 2201) 4.5 G/DL CALC GLOBULIN (test code = 2240) 2.6 G/DL CALC A/G RATIO (test code = 2234) 1.7 RATIO BILIRUBIN, TOTAL (test code = 2207) 0.2 MG/DL ALKALINE PHOSPHATASE (test code = 2204) 90 U/L AST (test code = 2218) 20 U/L ALT (test code = 2219) 18 U/L LIPID [id number] 00:00:00* Test Item Value Reference Range Interpretation Comme nts CHOLESTEROL (test code = 2210) 263 MG/DL TRIGLYCERIDES (test code = 2232) 183 MG/DL HDL CHOLESTEROL (test code = 2220) 58 MG/DL CALC LDL CHOL (test code = 2237) 168 MG/DL RISK RATIO LDL/HDL (test cod e = 2238) 2.90 RATIO LIPID [id number] 00:00:00* Test Item Value Reference Range Interpretation Comme nts CHOLESTEROL (test code = 2210) 263 MG/DL TRIGLYCERIDES (test code = 2232) 183 MG/DL HDL CHOLESTEROL (test code = 2220) 58 MG/DL CALC LDL CHOL (test code = 2237) 168 MG/DL RISK RATIO LDL/HDL (test cod e = 2238) 2.90 RATIO CBC W/AUTO [id number] 00:00:00* Test Item Value Reference Range Interpretation Comme nts WBC (test code = 1001) 6.8 K/UL RBC (test code = 1002) 4.52 M/UL HEMOGLOBIN (test code = 1003) 12.9 G/DL HEMATOCRIT (test code = 1004) 39.0 % MCV (test code = 1005) 86.3 fL MCH (test code = 1006) 28.5 PG MCHC (test code = 1007) 33.1 G/DL RDW (test code = 1038) 12.7 % NEUTROPHILS (test code = 1008) 59.3 % LYMPHOCYTES (test code = 1010) 31.1 % MONOCYTES (test code = 1011) 7.6 % EOSINOPHILS (test code = 1012) 1.6 % BASOPHILS (test code = 1013) 0.4 % PLATELET COUNT (test code = 1015) 290 K/UL CBC W/AUTO [id number] 00:00:00* Test Item Value Reference Range Interpretation Comme nts WBC (test code = 1001) 6.8 K/UL RBC (test code = 1002) 4.52 M/UL HEMOGLOBIN (test code = 1003) 12.9 G/DL HEMATOCRIT (test code = 1004) 39.0 % MCV (test code = 1005) 86.3 fL MCH (test code = 1006) 28.5 PG MCHC (test code = 1007) 33.1 G/DL RDW (test code = 1038) 12.7 % NEUTROPHILS (test code = 1008) 59.3 % LYMPHOCYTES (test code = 1010) 31.1 % MONOCYTES (test code = 1011) 7.6 % EOSINOPHILS (test code = 1012) 1.6 % BASOPHILS (test code = 1013) 0.4 % PLATELET COUNT (test code = 1015) 290 K/UL CBC W/AUTO [id number] 00:00:00* Test Item Value Reference Range Interpretation Comme nts WBC (test code = 1001) 6.8 K/UL RBC (test code = 1002) 4.52 M/UL HEMOGLOBIN (test code = 1003) 12.9 G/DL HEMATOCRIT (test code = 1004) 39.0 % MCV (test code = 1005) 86.3 fL MCH (test code = 1006) 28.5 PG MCHC (test code = 1007) 33.1 G/DL RDW (test code = 1038) 12.7 % NEUTROPHILS (test code = 1008) 59.3 % LYMPHOCYTES (test code = 1010) 31.1 % MONOCYTES (test code = 1011) 7.6 % EOSINOPHILS (test code = 1012) 1.6 % BASOPHILS (test code = 1013) 0.4 % PLATELET COUNT (test code = 1015) 290 K/UL [id number] 00:00:00* Test Item Value Reference Range Interpretation Comme nts TSH (test code = 2821) 1.08 UIU/ML [id number] 00:00:00* Test Item Value Reference Range Interpretation Comme nts TSH (test code = 2821) 1.08 UIU/ML
[2023-11-22] MEDS ORDERED: ONDANSETRON 4 MG/2 ML VIAL ONE (13:24)
[2023-11-22] MEDS ORDERED: MORPHINE 2 MG/ML SYR ONE ×2 (13:25→15:44)
[2023-11-22] MEDS ORDERED: NA CHLORIDE 0.9% 1,000 ML ONE (13:25)
[2023-11-22 13:30] LABS: Absolute Lymphocytes (CBC) 2.3 K/uL (0.7-4.9); Hematocrit 38.8 % (36.0-45.0); Lymphocytes % 29.1 % (15.3-44.8); MCV 86.5 fL (80-100); MPV 7.4 fL (7.6-11.3); Platelets 294 thou/uL (152-406); RBC Red Blood Cell Count 4.48 M/uL (3.86-4.86)
[2023-11-22 13:32] LABS: Protime INR 1.09
[2023-11-22 13:49] LABS: ALT/SGPT 31 U/L (13-56); AST/SGOT 11 U/L (15-37); Albumin 3.5 g/dL (3.4-5.0); Alkaline Phosphatase 106 U/L (45-117); BUN Blood Urea Nitrogen 13 mg/dL (7-18); Bicarbonate 30 mEq/L (21-32); Bilirubin Total 0.2 mg/dL (0.2-1.0); Glomerular Filtration Rate 50 ml/min (=/>90); Glucose Level 181 mg/dL (74-106); Lipase 33 U/L (13-75); NT PRO-BNP 25 pg/mL (<125); Potassium 3.4 mEq/L (3.5-5.1); Sodium Level 140 mEq/L (136-145); Troponin High Sensitivity 4.1 pg/mL (<58.9)
[2023-11-22 13:51] LABS: Bilirubin Direct < 0.1 mg/dL (0-0.2); Bilirubin Indirect, Calculated ND mg/dL (0.2-0.8)
[2023-11-22 13:52] LABS: SARS-CoV-2 Antigen Rapid Res Negative (Negative)
[2023-11-22] MEDS ORDERED: ASPIRIN 81 MG CHEWABLE TABLET ONE (14:09)
[2023-11-22] MEDS ORDERED: FAMOTIDINE 20 MG/2 ML VIAL IV ONE (14:10)
[2023-11-22 14:32] LABS: Specific Gravity 1.017 (1.005-1.030); Urine Bilirubin NEGATIVE (Negative); Urine Blood Negative (Negative); Urine Clarity Clear (Clear); Urine Color Colorless (Yellow); Urine Glucose 1+ (Negative); Urine Protein NEGATIVE (Negative); Urine Urobilinogen Normal (Normal)
[2023-11-22] MEDS ORDERED: POTASSIUM 25 MEQ EFFERV TAB ONE (14:42)
--- NOTE | 2023-11-22 14:56 | EKG ---
Test Date: 2023-11-22 Test Time: 13:06:59 Stage Director: SUNNY MEASUREMENT RESULTS: Intervals: Rate: 94 AL: 144 QRSD: 80 QT: 362 QTc: 452 [place]: P: 71 AL: 144 QRS: 74 T: 81 INTERPRETIVE STATEMENTS: Normal sinus rhythm Low voltage QRS Borderline ECG Compared to ECG 08/03/2017 15:34:33 Low QRS voltage now present Electronically Signed On 11-22-23 14:56:17 [employer] by Keaton Morillo
--- NOTE | 2023-11-22 15:53 | RAD REPORT ---
EXAM DESCRIPTION: CT - Chest For Pe Angio - 11/22/2023 2:11 pm CLINICAL HISTORY: CHEST PAIN COMPARISON: No comparisons TECHNIQUE: Thin axial CT images of the chest were obtained following administration of 100 mL Isovue 370 IV contrast. Multiplanar reconstructions, and maximum intensity projection reconstructions were generated and reviewed. Exam utilizes a protocol for optimal evaluation of pulmonary arterial tree. All CT scans are performed using dose optimization technique as appropriate and may include automated exposure control or mA/KV adjustment according to patient size. FINDINGS: Pulmonary arteries are normal. No emboli or other suspicious finding. No acute or signific ant aorta findings. Mild fusiform aneurysmal dilation of the ascending thoracic aorta measuring 4.1 cm in caliber. Mild c alcific and noncalcific atherosclerotic plaque along the descending aorta. No mass or infiltrate in t he lung parenchyma. No pleural thickening or pleural effusion. No pneumothorax. No abnormal mediastinal or hilar masses or lymphadenopathy seen. No chest wall mass or abnormal axill iary lymphadenopathy. IMPRESSION: No evidence of acute central pulmonary emboli. Mild fusiform aneurysmal dilation of the ascending thoracic aorta measuring 4.1 cm in caliber.
--- NOTE | 2023-11-22 16:39 | EDPHYS ---
Physician Documentation [facility] Name: Joy Soler Age: 63 yrs Sex: Female : 1960 Arrival Date: 11/22/2023 Time: 12:45 Bed 16 Private MD: Mo Denney ED Physician Jasmeet Quezada HPI: 11/22 15:59 This 63 yrs old Black Female presents to ER via Ambulatory with complaints of Chest jacobo Pain. 15:59 The patient or guardian reports chest pain that is located primarily in the anterior jacobo chest wall, left. Onset: this morning. The pain does not radiate. Associated signs and symptoms: The patient has no apparent associated signs or symptoms. The chest pain is described as aching, sharp. Duration: The patient or guardian reports multiple episodes, that wax and wane. Severity of pain: At its worst the pain was moderate in the emergency department the pain is unchanged. The patient has experienced similar episodes in the past, a few times. Historical: - Allergies: 12:55 No Known Allergies; cp4 - PMHx: 12:55 Hypertension; cp4 - Immunization history:: Adult Immunizations up to date. - Social history:: Smoking status: Patient denies any tobacco usage or history of. ROS: 16:00 Constitutional: Negative for fever, chills, and weight loss, Eyes: Negative for injury, jacobo pain, redness, and discharge, ENT: Negative for injury, pain, and discharge, Neck: Negative for injury, pain, and swelling, Respiratory: Negative for shortness of breath, cough, wheezing, and pleuritic chest pain, Abdomen/GI: Negative for abdominal pain, nausea, vomiting, diarrhea, and constipation, Back: Negative for injury and pain, : Negative for injury, bleeding, discharge, and swelling, MS/Extremity: Negative for injury and deformity, Skin: Negative for injury, rash, and discoloration, Neuro: Negative for headache, weakness, numbness, tingling, and seizure, Psych: Negative for depression, anxiety, suicide ideation, homicidal ideation, and hallucinations, Allergy/Immunology: Negative for hives, rash, and allergies, Endocrine: Negative for neck swelling, polydipsia, polyuria, polyphagia, and marked weight changes, Hematologic/Lymphatic: Negative for swollen nodes, abnormal bleeding, and unusual bruising, 16:00 Cardiovascular: Positive for chest pain, with cough, with movement, of the left lateral posterior chest and left lateral anterior chest, Exam: 16:00 Constitutional: This is a well developed, well nourished patient who is awake, alert, jacobo and in no acute distress. Head/Face: Normocephalic, atraumatic. Eyes: Pupils equal round and reactive to light, extra-ocular motions intact. Lids and lashes normal. Conjunctiva and sclera are non-icteric and not injected. Cornea within normal limits. Periorbital areas with no swelling, redness, or edema. ENT: Nares patent. No nasal discharge, no septal abnormalities noted. Tympanic membranes are normal and external auditory canals are clear. Oropharynx with no redness, swelling, or masses, exudates, or evidence of obstruction, uvula midline. Mucous membranes moist. Neck: Trachea midline, no thyromegaly or masses palpated, and no cervical lymphadenopathy. Supple, full range of motion without nuchal rigidity, or vertebral point tenderness. No Meningismus. Cardiovascular: Regular rate and rhythm with a normal S1 and S2. No gallops, murmurs, or rubs. Normal PMI, no JVD. No pulse deficits. Respiratory: Lungs have equal breath sounds bilaterally, clear to auscultation and percussion. No rales, rhonchi or wheezes noted. No increased work of breathing, no retractions or nasal flaring. Abdomen/GI: Soft, non-tender, with normal bowel sounds. No distension or tympany. No guarding or rebound. No evidence of tenderness throughout. Back: No spinal tenderness. No costovertebral tenderness. Full range of motion. Skin: Warm, dry with normal turgor. Normal color with no rashes, no lesions, and no evidence of cellulitis. MS/ Extremity: Pulses equal, no cyanosis. Neurovascular intact. Full, normal range of motion. Neuro: Awake and alert, GCS 15, oriented to person, place, time, and situation. Cranial nerves II-XII grossly intact. Motor strength 5/5 in all extremities. Sensory grossly intact. Cerebellar exam normal. Normal gait. Psych: Awake, alert, with orientation to person, place and time. Behavior, mood, and affect are within normal limits. 16:00 Chest/axilla: Inspection: normal, no acute changes, Palpation: tenderness, that is moderate, of the anterior aspect of left upper chest, mid-sternal area, left lateral posterior chest, left lateral anterior chest and left breast, Axilla: are normal, no acute changes, Breasts: are normal, Lymph nodes: lymphadenopathy is not appreciated, 16:00 ECG was reviewed by the Attending Physician. 16:05 ECG was reviewed by the Attending Physician. jacobo Vital Signs: 12:55 BP 135 / 88; Pulse 91; Resp 18; Temp 98; Pulse Ox 98% ; Weight 104.33 kg; Height 5 ft. cp4 6 in. ; 14:00 BP 125 / 83; Pulse 87; Resp 18; Pulse Ox 100% ; cp4 15:00 BP 132 / 94; Pulse 86; Resp 18; Pulse Ox 100% ; cp4 16:00 BP 126 / 88; Pulse 89; Resp 18; Pulse Ox 100% ; cp4 17:00 BP 151 / 99; Pulse 73; Resp 18; Pulse Ox 99% ; cp4 18:00 BP 133 / 96; Pulse 70; Resp 18; Pulse Ox 100% ; cp4 12:55 Body Mass Index 37.12 (104.33 kg, 167.64 cm) cp4 MDM: 12:49 Patient medically screened. jacobo 17:05 Differential diagnosis: abnormal EKG, acute myocardial infarction, acute pericarditis, jacobo anxiety, chest wall pain, pancreatitis, pneumonia, pulmonary embolus, stable angina, thoracic aortic disection, unstable angina. HEART Score: History: Moderately Suspicious (1), ECG: Non specific repolarization disturbance / LBTB / PM (1), Age: > 45 and < 65 years (1), Risk Factors: > or = 3 Risk factors for atherosclerotic disease (2), [Hypertension] [+ Family HX] [Obesity] Troponin: < or = 1 x Normal Limit (0). The patient was given aspirin in the Emergency Department. MADHAV Risk Score: 1 - Three or more CAD risk factors, TOTAL SCORE = 1. Data reviewed: vital signs, nurses notes, lab test result(s), EKG, radiologic studies, CT scan, plain films. Consideration of Admission/Observation Patient was admitted/placed on observation. Escalation of care including admission/observation considered. I considered the following discharge prescriptions or medication management in the emergency department Medications were administered in the Emergency Department. See 12:51 Order name: Basic Metabolic Panel; Complete Time: 14:28 11/22 12:51 Order name: CBC with Diff; Complete Time: 14:28 11/22 12:51 Order name: LFT's; Complete Time: 14:28 11/22 12:51 Order name: Magnesium; Complete Time: 14:28 11/22 12:51 Order name: NT PRO-BNP; Complete Time: 14:28 11/22 12:51 Order name: PT-INR; Complete Time: 14:28 11/22 12:51 Order name: Troponin HS; Complete Time: 14:28 11/22 12:51 Order name: Lipase; Complete Time: 14:28 11/22 12:51 Order name: Urinalysis w/ reflexes; Complete Time: 14:52 11/22 13:08 Order name: SARS RAPID; Complete Time: 14:28 11/22 13:08 Order name: Flu; Complete Time: 14:28 11/22 14:29 Order name: Troponin HS: 4pm; Complete Time: 16:38 11/22 15:55 Order name: Troponin HS cp4 11/22 12:51 Order name: XRAY Chest (1 view); Complete Time: 17:09 11/22 13:08 Order name: CT Chest For PE Angio; Complete Time: 15:58 11/22 13:08 Order name: US Extremity Venous W Compression Pepito; Complete Time: 17:09 11/22 16:16 Order name: INCENTIVE SPIROMETRY 11/22 12:51 Order name: EKG; Complete Time: 12:52 11/22 15:08 Order name: EKG; Complete Time: 15:08 11/22 12:51 Order name: Cardiac monitoring; Complete Time: 13:11 11/22 12:51 Order name: EKG - Nurse/Tech; Complete Time: 13:11 11/22 12:51 Order name: IV Saline Lock; Complete Time: 13:28 11/22 12:51 Order name: Labs collected and sent; Complete Time: 13:28 11/22 12:51 Order name: O2 Per Protocol; Complete Time: 13:11 11/22 12:51 Order name: O2 Sat Monitoring; Complete Time: 13:11 11/22 15:08 Order name: EKG - Nurse/Tech; Complete Time: 15:45 jacobo EC:00 Rate is 94 beats/min. Rhythm is regular. QRS [place] is Normal. AL interval is normal. QRS jacobo interval is normal. QT interval is normal. No Q waves. T waves are Normal. No ST changes noted. Clinical impression: NSR w/ Non-specific ST/T Changes and No evidence of ischemia. Interpreted by me. Reviewed by me. 16:05 Rate is 83 beats/min. Rhythm is regular. QRS [place] is Normal. AL interval is normal. QRS jacobo interval is normal. QT interval is normal. No Q waves. T waves are Normal. No ST changes noted. Clinical impression: NSR w/ Non-specific ST/T Changes and No evidence of ischemia. Interpreted by me. Reviewed by me. Administered Medications: 13:28 Drug: morphine IVP or IV 2 mg IVP once over 4 mins Route: IVP; Infused Over: 4 mins; cp4 Site: left antecubital; 18:51 Follow up: Response: No adverse reaction cp4 14:07 Drug: NS 0.9% IV 1000 ml IV at 125 ml/hr continuous Route: IV; Rate: 125 ml/hr; Site: cp4 left antecubital; 18:52 Follow up: Response: No adverse reaction; IV Status: Infusion continued upon admission cp4 14:08 Drug: Ondansetron IVP 4 mg IVP once; over 2 minutes Route: IVP; Site: left antecubital; cp4 18:51 Follow up: Response: No adverse reaction cp4 14:25 Drug: Famotidine IVP 20 mg IVP once; dilute with 10 mL 0.9% NaCl; give over 2 minutes cp4 Route: IVP; Site: left antecubital; 18:51 Follow up: Response: No adverse reaction cp4 14:26 Drug: Aspirin PO 162 mg PO once Route: PO; cp4 18:52 Follow up: Response: No adverse reaction cp4 14:49 Drug: Potassium PO Effervescent Tablet 25 mEq PO once; dissolve in 4 ounces of water or cp4 juice Route: PO; 18:51 Follow up: Response: No adverse reaction cp4 16:13 Drug: morphine IVP or IV 2 mg IVP once over 4 mins Route: IVP; Infused Over: 4 mins; cp4 Site: left antecubital; 18:51 Follow up: Response: No adverse reaction cp4 17:28 Drug: Enoxaparin Sub-Q 100 mg Sub-Q once Route: Sub-Q; Site: abdomen; cp4 18:50 Follow up: Response: No adverse reaction cp4 17:29 Drug: Metoprolol PO 25 mg PO once Route: PO; cp4 18:51 Follow up: Response: No adverse reaction cp4 Disposition Summary: 11/22/23 17:09 Hospitalization Ordered Notes: Hospitalization Status: Observation jacobo Provider: Ricardo Reyes cha Location: Telemetry/MedSurg (observation)(11/22/23 17:09) jacobo Condition: Fair(11/22/23 17:09) jacobo Problem: new(11/22/23 17:09) jacobo Symptoms: have improved(11/22/23 17:09) jacobo Bed/Room Type: Standard jacobo Room Assignment: 402(11/22/23 18:31) bd Diagnosis - Chest pain, unspecified(11/22/23 17:09) jacobo - Chest pain on breathing(11/22/23 17:09) jacobo - Essential (primary) hypertension jacobo - Obesity, unspecified jacobo - Abdominal aortic aneurysm, without rupture - 4.1 cm(11/22/23 17:09) jacobo Forms: - Medication Reconciliation Form jacobo - SBAR form jacobo - Leadership Thank You Letter jacobo Signatures: Dispatcher [employer] Mirna Shields Corey, MD MD cha Attema, Lee, TUBE KNITTER-C TUBE KNITTER-Cla1 Stefany Sewell cp4 Corrections: (The following items were deleted from the chart) 17:04 16:39 Home jacobo jacobo 17:04 16:39 new jacobo jacobo 17:04 16:39 have improved jacobo jacobo 17:04 16:39 Stable jacobo jacobo 17:04 16:39 Strain of muscle and tendon of front wall of thorax jacobo jacobo 17:04 16:39 Strain of muscle and tendon of back wall of thorax jacobo jacobo 17:04 16:39 Chest pain, unspecified jacobo jacobo 17:04 16:39 Chest pain on breathing jacobo jacobo 17:04 16:39 Abdominal aortic aneurysm, without rupture - 4.1 CM jacobo jacobo 18:31 17:09 jacobo bd
--- NOTE | 2023-11-22 16:39 | ER ---
Nurse's Notes [facility] Name: Joy Soler Age: 63 yrs Sex: Female : 1960 Arrival Date: 11/22/2023 Time: 12:45 Bed 16 Private MD: Mo Deneny Diagnosis: Chest pain, unspecified;Chest pain on breathing;Essential (primary) hypertension;Obesity, unspecified;Abdominal aortic aneurysm, without rupture-4.1 cm Presentation: 11/22 12:55 Chief complaint: Patient states: report chest pain that started this morning. States cp4 she is supposed to follow up with a development and housing director but has not yet. 12:55 Coronavirus screen: Vaccine status: Patient reports receiving the 2nd dose of the covid cp4 vaccine. Client denies travel out of the [place] in the last 14 days. At this time, the client does not indicate any symptoms associated with coronavirus-19. Ebola Screen: Patient negative for fever greater than or equal to 101.5 degrees Fahrenheit, and additional compatible Ebola Virus Disease symptoms Patient denies exposure to infectious person. Patient denies travel to an Ebola-affected area in the 21 days before illness onset. No symptoms or risks identified at this time. Initial Sepsis Screen: Does the patient meet any 2 criteria? No. Patient's initial sepsis screen is negative. Does the patient have a suspected source of infection? No. Patient's initial sepsis screen is negative. Risk Assessment: Do you want to hurt yourself or someone else? Patient reports no desire to harm self or others. Onset of symptoms was November 22, 2023. 12:55 Method Of Arrival: Ambulatory cp4 12:55 Acuity: LEIGH 3 cp4 Triage Assessment: 12:55 General: Appears in no apparent distress. Behavior is calm, cooperative, appropriate cp4 for age. Pain: Complains of pain in chest. Cardiovascular: Reports chest pain, shortness of breath. Historical: - Allergies: 12:55 No Known Allergies; cp4 - PMHx: 12:55 Hypertension; cp4 - Immunization history:: Adult Immunizations up to date. - Social history:: Smoking status: Patient denies any tobacco usage or history of. Screenin:55 [facility] ED Fall Risk Assessment (Adult) History of falling in the last 3 months, cp4 including since admission No falls in past 3 months (0 pts) Confusion or Disorientation No (0 pts) Intoxicated or Sedated No (0 pts) Impaired Gait No (0 pts) Mobility Assist Device Used No (0 pt) Altered Elimination No (0 pt) Score/Fall Risk Level 0 - 2 = Low Risk Oriented to surroundings, Maintained a safe environment, Educated pt \T\ family on fall prevention, incl call for assistance when getting out of bed, Assessed \T\ reinforced patient's understanding of fall precautions, Provided non-skid footwear, Hourly rounding (assess needs \T\ fall precautionary measures) done. Abuse screen: Denies threats or abuse. Nutritional screening: No deficits noted. Tuberculosis screening: No symptoms or risk factors identified. Assessment: 14:31 Reassessment: Patient appears in no apparent distress at this time. Pain: Pain does not cp4 radiate. Pain began suddenly. 18:38 Reassessment: Attempted to call report, no answer x2. cp4 18:48 Reassessment: Spoke with Harmony on hourly shift answered and said she would find out and cp4 let me know. 19:18 Reassessment: Attempted to call report. Put on hold, no answer. cp4 Vital Signs: 12:55 BP 135 / 88; Pulse 91; Resp 18; Temp 98; Pulse Ox 98% ; Weight 104.33 kg; Height 5 ft. cp4 6 in. ; 14:00 BP 125 / 83; Pulse 87; Resp 18; Pulse Ox 100% ; cp4 15:00 BP 132 / 94; Pulse 86; Resp 18; Pulse Ox 100% ; cp4 16:00 BP 126 / 88; Pulse 89; Resp 18; Pulse Ox 100% ; cp4 17:00 BP 151 / 99; Pulse 73; Resp 18; Pulse Ox 99% ; cp4 18:00 BP 133 / 96; Pulse 70; Resp 18; Pulse Ox 100% ; cp4 12:55 Body Mass Index 37.12 (104.33 kg, 167.64 cm) cp4 ED Course: 12:45 Patient arrived in ED. mr 12:45 Mo Denney DO is Private Physician. mr 12:49 Jasmeet Quezada MD is Attending Physician. jacobo 12:53 Stefany Sewell is Primary Nurse. cp4 12:55 No provider procedures requiring assistance completed. Patient maintains SpO2 cp4 saturation greater than 95% on room air. 12:55 Arm band placed on right wrist. Patient placed in waiting room. cp4 12:55 Bed in low position. Call light in reach. Side rails up X 1. Provided Education on: cp4 chest pain. Client placed on continuous cardiac and pulse oximetry monitoring. NIBP monitoring applied. 13:27 Flu Sent. bc6 13:27 SARS RAPID Sent. bc6 13:28 Basic Metabolic Panel Sent. bc6 13:28 CBC with Diff Sent. bc6 13:28 LFT's Sent. bc6 13:28 Magnesium Sent. bc6 13:28 NT PRO-BNP Sent. bc6 13:28 PT-INR Sent. bc6 13:28 Troponin HS Sent. bc6 13:28 Inserted saline lock: 22 gauge in left antecubital area, using aseptic technique. Blood bc6 collected. 14:05 US Extremity Venous W Compression Pepito In Process Unspecified. EDMS 14:13 CT Chest For PE Angio In Process Unspecified. EDMS 14:22 XRAY Chest (1 view) In Process Unspecified. EDMS 14:29 Triage completed. cp4 16:38 Mo Denney DO is Referral Physician. jacobo 16:38 Keaton Morillo MD is Referral Physician. jacobo 17:08 Ricardo Reyes is Hospitalizing Provider. jacobo Administered Medications: 13:28 Drug: morphine IVP or IV 2 mg IVP once over 4 mins Route: IVP; Infused Over: 4 mins; cp4 Site: left antecubital; 18:51 Follow up: Response: No adverse reaction cp4 14:07 Drug: NS 0.9% IV 1000 ml IV at 125 ml/hr continuous Route: IV; Rate: 125 ml/hr; Site: cp4 left antecubital; 18:52 Follow up: Response: No adverse reaction; IV Status: Infusion continued upon admission cp4 14:08 Drug: Ondansetron IVP 4 mg IVP once; over 2 minutes Route: IVP; Site: left antecubital; cp4 18:51 Follow up: Response: No adverse reaction cp4 14:25 Drug: Famotidine IVP 20 mg IVP once; dilute with 10 mL 0.9% NaCl; give over 2 minutes cp4 Route: IVP; Site: left antecubital; 18:51 Follow up: Response: No adverse reaction cp4 14:26 Drug: Aspirin PO 162 mg PO once Route: PO; cp4 18:52 Follow up: Response: No adverse reaction cp4 14:49 Drug: Potassium PO Effervescent Tablet 25 mEq PO once; dissolve in 4 ounces of water or cp4 juice Route: PO; 18:51 Follow up: Response: No adverse reaction cp4 16:13 Drug: morphine IVP or IV 2 mg IVP once over 4 mins Route: IVP; Infused Over: 4 mins; cp4 Site: left antecubital; 18:51 Follow up: Response: No adverse reaction cp4 17:28 Drug: Enoxaparin Sub-Q 100 mg Sub-Q once Route: Sub-Q; Site: abdomen; cp4 18:50 Follow up: Response: No adverse reaction cp4 17:29 Drug: Metoprolol PO 25 mg PO once Route: PO; cp4 18:51 Follow up: Response: No adverse reaction cp4 Medication: 14:31 VIS not applicable for this client. cp4 Outcome: 16:39 Discharge ordered by . jacobo 17:09 Decision to Hospitalize by Provider. jacobo 19:44 Patient left the ED. jb4 Signatures: Dispatcher [employer] EDJasmeet Tabares MD MD cha Rivera, Mary, Reg Reg mr Oliver Burt, RN RN jb4 Melissa Arteaga Christina cp4
--- NOTE | 2023-11-22 16:40 | RAD REPORT ---
EXAM DESCRIPTION: US - Extrem Venous W Compress Pepito - 11/22/2023 2:03 pm CLINICAL HISTORY: Pain COMPARISON: None. TECHNIQUE: Real-time sonographic evaluation of the bilateral lower extremity deep venous systems was performed. FINDINGS: Normal compressibility, flow augmentation, phasic flow and spontaneous flow is identified in both the left and right lower extremity deep venous systems. No intraluminal filling defects seen. IMPRESSION: No DVT in either lower extremity.
--- NOTE | 2023-11-22 16:42 | RAD REPORT ---
[facility] CLINICAL HISTORY: CHEST PAIN COMPARISON: Chest Single View dated 08/03/2017; CHEST SINGLE VIEW dated 06/25/2015; CHEST SINGLE VIEW dated 12/05/2013; CHEST PA AND LAT 2 VIEW dated 11/17/2010 TECHNIQUE: Portable AP view of the chest. FINDINGS: The lungs are clear. Left basal pericardiac streaky opacities suggestive of atelectasis or scarring. No pneumothorax or effusion. The cardiomediastinal contours are unremarkable. IMPRESSION: No acute cardiopulmonary process.
[2023-11-22] MEDS ORDERED: ENOXAPARIN 100 MG/ML SYR SQ ONE (17:19)
[2023-11-22] MEDS: METOPROLOL TAR 25 MG TAB ONE (17:25)
--- NOTE | 2023-11-22 17:36 | P.HP ---
Certification for Inpatient Patient admitted to: Observation With expected LOS: <2 Midnights Patient will require the following post-hospital care: None Practitioner: I am a practitioner with admitting privileges, knowledge of patient current condition, hospital course, and medical plan of care. Services: Services provided to patient in accordance with Admission requirements found in Title 42 Section 412.3 of the Code of Federal Regulations Patient History Date of Service: 11/22/23 Reason for admission: Chest pain History of Present Illness: 63-year-old female with history of hypertension, hyperlipidemia, anxiety presents emergency room with chief complaint of chest pain. Her pain began this morning described as sharp radiating from her chest to her back and associated with shortness of breath and nausea. She reports she last had a stress test approximate 20 years ago and has never had a heart catheterization or echocardiogram performed. She was evaluated in the emergency department her initial high sensitive troponin was negative, CTA of the chest was also performed which was negative for pulmonary embolism showed mild fusiform aneur ysmal dilation of the ascending thoracic aorta measuring 4.1 cm in caliber. ED provider wishes to admit patient under observation for ACS rule out. Allergies No Known Drug Allergies Allergy (Unverified 07/04/15 19:27) Unknown No Known Allergies Allergy (Uncoded 08/03/17 17:44) Unknown Home Medications: Acetaminophen/Diphenhydramine [Tylenol Pm Ex-Strength Geltab] 12/06/13 Hydrocodone Bit/Acetaminophen [Ruth 10-325 Tablet] 1 each PO Q6HP PRN #30 tablet 12/06/13 Metoprolol Tartrate [Lopressor*] 50 mg PO BID #60 tab 12/06/13 methylPREDNISolone [Medrol*] 4 mg PO DAILY #1 tab 12/06/13 - Past Medical/Surgical History Diabetic: No -: CVA -: Hypertension -: Hyperlipidemia -: hysterectomy -: appendectomy -: tubal ligation Psychosocial/ Personal History: Retired, lives at home alone - Family History Father Notes: Brain aneurysm - Social History Smoking Status: Never smoker Alcohol use: Yes CD- Drugs: No Caffeine use: Yes Place of Residence: Home Review of Systems 10-point ROS is otherwise unremarkable Respiratory: Shortness of Breath Cardiovascular: Chest Pain Physical Examination - Physical Exam General: Alert, In no apparent distress, Oriented x3 HEENT: Atraumatic, PERRLA, Mucous membr. moist/pink Neck: Supple, 2+ carotid pulse no bruit, No LAD Respiratory: Clear to auscultation bilaterally, Normal air movement Cardiovascular: Regular rate/rhythm, Normal S1 S2 Gastrointestinal: Normal bowel sounds, No tenderness Musculoskeletal: No tenderness Integumentary: No rashes Neurological: Normal speech, Normal strength at 5/5 x4 extr, Normal tone, Normal affect - Studies Laboratory Data (last 24 hrs) 11/22/23 11/22/23 11/22/23 13:20 13:20 13:20 WBC 7.80 Hgb 12.8 Hct 38.8 Plt Count 294 PT 12.0 INR 1.09 Sodium 140 Potassium 3.4 L BUN 13 Creatinine 1.21 H Glucose 181 H Magnesium 2.0 Total Bilirubin 0.2 AST 11 L ALT 31 Alkaline Phosphatase 106 Lipase 33 Microbiology Data (last 24 hrs): 11/22/23 13:30 Nasopharnyx Influenza Type A Antigen Screen - Final 11/22/23 13:30 Nasopharnyx Influenza Type B Antigen Screen - Final Assessment and Plan - Plan Assessment: Chest pain rule out ACS Hypertension Hyperlipidemia Anxiety Plan: Chest pain rule out ACS Trend troponins, monitor on telemetry cardiology consult CTA negative for pulmonary embolism/dissection Continue aspirin, statin Hypertension Hyperlipidemia Anxiety Continue home medications once verified DVT PPX: Lovenox Code status: Full Discharge Plan: Home Plan to discharge in: 24 Hours - Advance Directives Does patient have a Living Will: No Does patient have a Durable POA for Healthcare: No - Code Status/Comfort Care Code Status Assessed: Yes (Full code) Critical Care: No Time Spent Managing Pts Care (In Minutes): 55
[2023-11-22] MEDS ORDERED: ONDANSETRON 4 MG/2 ML VIAL IV PRN (19:50)
[2023-11-22] MEDS: ATORVASTATIN 40 MG TAB PO SCH (21:00)
[2023-11-22 22:01] VITALS: BMI 35.5
[2023-11-23] MEDS: MORPHINE 2 MG/ML SYR IV PRN (02:27)
[2023-11-23 07:07] LABS: Absolute Lymphocytes (CBC) 2.3 K/uL (0.7-4.9); Hematocrit 39.1 % (36.0-45.0); Lymphocytes % 33.7 % (15.3-44.8); MCV 86.1 fL (80-100); Platelets 284 thou/uL (152-406); RBC Red Blood Cell Count 4.54 M/uL (3.86-4.86)
[2023-11-23 07:20] LABS: Thyroid Stimulating Hormone 2.84 uIU/mL (0.358-3.740); Troponin High Sensitivity 6.5 pg/mL (<58.9)
[2023-11-23] MEDS: ASPIRIN EC 81 MG TAB PO SCH (08:49)
[2023-11-23] MEDS: ENOXAPARIN 40 MG/0.4 ML SQ SCH (08:49)
[2023-11-23] MEDS ORDERED: HEPA 1000U/500MLS 2,000 UNIT/1,000 ML BAG IV ONE (12:22)
[2023-11-23] MEDS ORDERED: HEPARIN 5000 UNIT/ML 1 ML VIAL ONE (12:23)
[2023-11-23] MEDS ORDERED: HEPARIN 10,000 UNIT/10 ML VIAL IV ONE (12:23)
[2023-11-23] MEDS ORDERED: VERAPAMIL HCL 10 MG/4 ML VIAL IV ONE (12:23)
[2023-11-23] MEDS ORDERED: FENTANYL CITR 100 MCG/2 ML ONE (12:23)
[2023-11-23] MEDS ORDERED: LIDOCAINE 1% 20 ML MDV ONE (12:23)
[2023-11-23] MEDS ORDERED: MIDAZOLAM HCL 2 MG/2 ML INJ ONE (12:23)
[2023-11-23] MEDS ORDERED: ATROPINE SULF 1 MG/10 ML SYR IV ONE (12:23)
[2023-11-23] MEDS ORDERED: NA CHLORIDE 0.9% 500 ML ONE (12:30)
--- NOTE | 2023-11-23 12:56 | EKG ---
Test Date: 2023-11-22 Test Time: 15:40:48 Truss Designer: SUNNY MEASUREMENT RESULTS: Intervals: Rate: 83 KS: 150 QRSD: 78 QT: 358 QTc: 420 [place]: P: 77 KS: 150 QRS: 49 T: 73 INTERPRETIVE STATEMENTS: Normal sinus rhythm Low voltage QRS Cannot rule out Anterior infarct, age undetermined Abnormal ECG Compared to ECG 11/22/2023 13:06:59 Myocardial infarct finding now present Electronically Signed On 11-23-23 12:52:51 WOOD SCIENCE PROFESSOR by Keaton Morillo
[2023-11-23] MEDS ORDERED: FAMOTIDINE 20 MG TAB ONE (13:21)
[2023-11-23] MEDS ORDERED: ONDANSETRON 4 MG/2 ML VIAL ONE (13:27)
[2023-11-23] MEDS ORDERED: CLOPIDOGREL 75 MG TABLET ONE (13:57)
--- NOTE | 2023-11-23 14:39 | CON ---
Date of Consultation: 11/23/2023 Reason For Consultation: Chest pain. History Of Present Illness: A 63-year-old female with history of hypertension, dyslipidemia, present ed with chest pain, retrosternal, radiates to the back in between shoulder blades and has been gettin g more frequent along with shortness of breath and nausea, lasted about 30 minutes and gets better. New onset and frequently happening and she wanted initially to go home, but then she had a chest pain and was talking to her and has decided to stay as she became scared of it. Past Medical History: As outlined above in the HPI. Medications: Refer to reconciliation sheet for detailed list. Allergies: NO KNOWN DRUG ALLERGIES. Family History: No premature coronary artery disease or cancer. Social History: She does not smoke or drink. Does not use any drugs. Review of Systems: All systems reviewed and they were negative except as mentioned in the HPI. Physical Examination: Vital Signs: Reviewed. Head and Neck: Pupils are equal, reactive to light. Intact eye movements. No JVD. No cervical lym phadenopathy. Neck is supple. Thyroid is not enlarged. Lungs: Clear to auscultation bilaterally. No rhonchi, rales, or crackles. No accessory muscle use. Heart: Regular rate and rhythm. No extra sounds. Abdomen: Soft, nontender. Bowel sounds positive. No organomegaly. No masses or hernia. No rigidi ty or rebound. Extremities: No edema, clubbing, or cyanosis. Intact pulses. Skin: No rash or nodule. Neurologic: Alert, awake, oriented x3. No acute focal deficits appreciated. Lymph Nodes: No cervical or axillary lymphadenopathy. Investigations: Cardiac enzymes are negative. BUN 11, creatinine 0.89, and hemoglobin is 13. Assessment/recommendation: 1.Chest pain, new onset, on and off, suggestive of unstable angina. She is still having active ches t pain. I recommend coronary angiogram to further evaluate an echocardiogram. Continue baby aspirin . Further recommendations post coronary angiogram. CTA angiogram of the lungs did not show any PE a nd the patient has a thoracic aortic aneurysm measuring 4.1 cm. 2.Thoracic aortic aneurysm, 4.1 cm. This needs close monitoring as an outpatient with yearly imagin g. 3.Hypertension. Blood pressure is acceptable. 4.Dyslipidemia. Continue statin with Lipitor. SR/MODL Voice ID: [id number] Report ID: [id number]
--- NOTE | 2023-11-23 18:05 | P.PN ---
Subjective Date of Service: 11/23/23 Chief Complaint: Chest pain Patient was complaining of chest pain this morning. Seen by cardiology Dr. Morillo will perform cardiac catheterization and cardiac stent placed. She is complaining of anxiety. Physical Examination - Vital Signs Temperature: 97.8 F Blood Pressure: 154/95 Pulse: 78 Respirations: 18 Pulse Ox (%): 97 - Physical Exam General: Alert, In no apparent distress, Oriented x3 HEENT: Mucous membr. moist/pink Neck: Supple, JVD not distended Respiratory: Clear to auscultation bilaterally, Normal air movement Cardiovascular: No edema, Regular rate/rhythm, Normal S1 S2 Gastrointestinal: Normal bowel sounds, Soft and benign, Non-distended, No tenderness Musculoskeletal: No swelling Integumentary: No rashes, No cyanosis Neurological: Normal speech, Normal strength at 5/5 x4 extr, Cranial nerves 3-12 intact - Studies Microbiology Data (last 24 hrs): 11/22/23 13:30 Nasopharnyx Influenza Type A Antigen Screen - Final 11/22/23 13:30 Nasopharnyx Influenza Type B Antigen Screen - Final Assessment And Plan - Plan Diagnosis Chest pain. CAD Hypertension Hyperlipidemia Anxiety Plan: Chest pain/CAD Troponin trended negative CTA negative for pulmonary embolism/dissection Patient seen and evaluated by cardiology Dr. Morillo. Cardiac cath done today and cardiac stent placed. Aspirin, Plavix, Lipitor Target LDL of less than 70. Monitor overnight. Hypertension Hyperlipidemia Anxiety Continue home medications. Resume Xanax.
[2023-11-23] MEDS ORDERED: ALBUTEROL 2.5 MG/3 ML NEB SOL NEB PRN (18:12)
[2023-11-23] MEDS: AMLODIPINE 5 MG TAB PO SCH (20:47)
[2023-11-23] MEDS: ALPRAZOLAM 1 MG TABLET PO PRN (20:47)
--- NOTE | 2023-11-23 23:03 | OP ---
Date of Procedure: 11/23/2023 Surgeon: ANGEL MEJIA Procedures Performed: 1.Selective coronary angiogram. 2.Left heart catheterization. 3.PCI of severe mid to distal large OM branch, used 3.5 x 12 mm Synergy drug-eluting stent. Indication: Unstable angina. Access: Right radial artery 6-Fijian, closed with TR band. Complications: None. Bleeding: Less than 20 mL. Anesthesia: Total sedation time was 1 hour. Description Of Procedure: After risks, benefits, and alternatives were explained, the patient agreed to procedure and signed informed consent. The patient was [facility], prepped and draped in usual sterile fashion. Then, I accessed right radial artery using pe diatric micropuncture kit, placed a 6-Fijian slender sheath, took 5-Fijian tiger 4 catheter into the aortic root, engaged the left main and the right coronary artery and took standard views. Catheter w as pushed over the wire into the LV, measured the LVEDP, and pullback did not record any gradient. T hen, we gave systemic heparin to assure ACT level above 250, gave 600 mg of Plavix. The patient is a lready on aspirin and took EBU3.5 guide 6-Fijian into the radial access and the aortic root, engaged left main, took short run-through wire into the left circumflex and passing it to the OM branching ar ea of stenosis and then using a 3.5 x 8 mm balloon, lesion expanded very well and then placed a 3.5 x 12 mm Synergy drug-eluting stent with excellent expansion and 0% residual stenosis. The patient wyatt erated the procedure very well. Then, I removed the wire. Final angiogram was satisfactory and with the guide and the sheath, placed TR band with good hemostasis. Findings: 1.Left main is very large and normal. 2.LAD; large vessel, proximal segment appears to be normal. In the mid segment, there is diffuse 30 % to 40% stenosis. The diagonal branch is small, but normal. 3.Left circumflex is very large vessel, codominant, proximal 30% and then the circ itself becomes sm all after the OM takeoff, but the OM is very large. It is a 4.0 vessel and in the mid to distal, the re is a focal 80% stenosis, very hazy, likely the culprit, and placed a 3.5 x 12 mm Synergy drug-elut ing stent. Excellent results. 4.RCA, it is moderate size, codominant with diffuse mid 60% stenosis. 5.Normal LVEDP at 7 mmHg. Conclusions: 1.Severe OM1 branch stenosis, likely the culprit, status post successful PCI as above. 2.Moderate coronary artery disease elsewhere. Recommendations: 1.Aspirin, Plavix, high-dose statin. 2.Plan for outpatient stress test in 1 month. If there is a perfusion defect in the RCA territory, then bring her back for PCI. SR/MODL Voice ID: [id number] Report ID: [id number]
[2023-11-24 05:38] LABS: Absolute Lymphocytes (CBC) 2.3 K/uL (0.7-4.9); Lymphocytes % 32.2 % (15.3-44.8); MCV 86.5 fL (80-100); MPV 7.7 fL (7.6-11.3); Platelets 278 thou/uL (152-406); RBC Red Blood Cell Count 4.63 M/uL (3.86-4.86)
[2023-11-24 05:55] LABS: Potassium 3.6 mEq/L (3.5-5.1)
--- NOTE | 2023-11-24 08:42 | P.PN ---
Date of Service: 11/24/23 Subjective ROS 10 point ROS as noted above, otherwise negative Physical Exam General: Alert, In no apparent distress, Oriented x3 HEENT: Atraumatic, PERRLA, Mucous membr. moist/pink Neck: Supple, 2+ carotid pulse no bruit, No LAD Respiratory: Clear to auscultation bilaterally, Normal air movement Cardiovascular: Regular rate/rhythm, Normal S1 S2 Gastrointestinal: Normal bowel sounds, No tenderness Musculoskeletal: No tenderness Integumentary: No rashes Neurological: Normal speech, Normal strength at 5/5 x4 extr, Normal tone, Normal affect Vitals Reviewed Assessment: Chest pain rule out ACS Hypertension Hyperlipidemia Anxiety Plan: Chest pain rule out ACS Troponin trended negative CTA negative for pulmonary embolism/dissection Patient seen and evaluated by cardiology Dr. Morillo. Cardiac cath done today and cardiac stent placed. Aspirin, Plavix, Lipitor Target LDL of less than 70. Monitor overnight. Heparin gtt- s/p LHC with stent to OM1 Hypertension Hyperlipidemia Anxiety Continue home medications Resume xanax DVT PPX: Lovenox Code status: Full Discharge Plan: Home Plan to discharge in: 24 Hours
[2023-11-24] MEDS: POTASSIUM CL SA 10 MEQ TAB PO ONE (09:39)
[2023-11-24] MEDS: CLOPIDOGREL 75 MG TABLET PO SCH (09:40)
[2023-11-24] MEDS: hydroCHLOROthiazide 12.5 MG CAP PO SCH (09:40)
--- NOTE | 2023-11-24 09:48 | P.DS ---
Admission Date: 11/22/23 Discharge Date: 11/24/23 Disposition: ROUTINE DISCHARGE Discharge Condition: FAIR Reason for Admission: Chest pain Brief History of Present Illness: Diagnosis Chest pain rule out ACS Hypertension Hyperlipidemia Anxiety HPI 11/22/23 Joy Soler is a 63-year-old female with history of hypertension, hyperlipidemia, anxiety presents emergency room with chief complaint of chest pain. Her pain began this morning described as sharp radiating from her chest to her back and associated with shortness of breath and nausea. She reports she last had a stress test approximate 20 years ago and has never had a heart catheterization or echocardiogram performed. She was evaluated in the emergency department her initial high sensitive troponin was negative, CTA of the chest was also performed which was negative for pulmonary embolism showed mild fusiform aneurysmal dilation of the ascending thoracic aorta measuring 4.1 cm in caliber. ED provider wishes to admit patient under observation for ACS rule out. Hospital Course: Joy Soler is a pleasant 63 year old female with a past medical history significant for hypertension, hyperlipidemia, anxiety who was admitted to the [facility] on 11/22/23 for Chest pain that radiated to her back. Joy Soler presented to the emergency room with chief complaint of chest pain radiating to her back. She was evaluated in the emergency department and admitted for continued monitoring. High sensitive troponin are negative, EKG negative for ST elevation/depression. CTA of the chest was also performed which was negative for pulmonary embolism showed mild fusiform aneurysmal dilation of the ascending thoracic aorta measuring 4.1 cm in caliber. Ultrasound of lower extremities negative for DVT. Left heart catheterization was performed by Dr. Morillo and one stent was placed in the OM1. Plan to follow up with Dr. Morillo as outpatient for a stress test in one month and monitoring of the mild fusiform aneurysmal dialtion. On 11/24/23, Joy was seen on morning rounds and deemed medically stable for discharge. Joy was discharged with instructions to schedule follow-up appointments with PCP and Dr. Morillo. Joy was provided prescriptions for Plavix, aspirin, and atorvastatin. The patient and family members were given the opportunity to ask questions and reported no further questions. Furthermore, all questions were answered to the best of my ability. A copy of this discharge summary will be sent to the above providers to facilitate continuity of care. Today, I personally spent 50 minutes with Joy, of which greater than 50% of the time was spent in patient education, counseling, and coordination of care as described above. Physical Exam General: Alert, In no apparent distress, Oriented x3 HEENT: Atraumatic, PERRLA, Mucous membr. moist/pink Neck: Supple, 2+ carotid pulse no bruit, No LAD Respiratory: Clear to auscultation bilaterally, Normal air movement Cardiovascular: Regular rate/rhythm, Normal S1 S2 Gastrointestinal: Normal bowel sounds, No tenderness Musculoskeletal: No tenderness Integumentary: No rashes Neurological: Normal speech, Normal strength at 5/5 x4 extr, Normal tone, Normal affect Vital Signs/Physical Exam: Temp Pulse Resp BP Pulse Ox 98.3 F 86 16 127/84 99 11/24/23 04:00 11/24/23 04:50 11/24/23 05:41 11/24/23 04:50 11/24/23 05:41 Laboratory Data at Discharge: WBC 7.20 thou/uL (4.3-10.9) 11/24/23 05:28 Hgb 13.4 g/dL (12.0-15.0) 11/24/23 05:28 Hct 40.0 % (36.0-45.0) 11/24/23 05:28 Plt Count 278 thou/uL (152-406) 11/24/23 05:28 PT 12.0 SECONDS (9.5-12.5) 11/22/23 13:20 INR 1.09 11/22/23 13:20 Sodium 139 mEq/L (136-145) 11/24/23 05:28 Potassium 3.6 mEq/L (3.5-5.1) 11/24/23 05:28 BUN 12 mg/dL (7-18) 11/24/23 05:28 Creatinine 1.11 mg/dL (0.55-1.02) H 11/24/23 05:28 Glucose 101 mg/dL (74-106) 11/24/23 05:28 Magnesium 2.0 mg/dL (1.6-2.4) 11/22/23 13:20 Total Bilirubin 0.2 mg/dL (0.2-1.0) 11/22/23 13:20 AST 11 U/L (15-37) L 11/22/23 13:20 ALT 31 U/L (13-56) 11/22/23 13:20 Alkaline Phosphatase 106 U/L (45-117) 11/22/23 13:20 Triglycerides 116 mg/dL (<150) 11/23/23 06:09 Cholesterol 153 mg/dL (<200) 11/23/23 06:09 HDL Cholesterol 46 mg/dL (40-60) 11/23/23 06:09 Cholesterol/HDL Ratio 3.33 11/23/23 06:09 Lipase 33 U/L (13-75) 11/22/23 13:20 Home Medications: Albuterol Inhaler [Ventolin Inhaler*] 2 puff IH Q6H PRN 11/23/23 Amlodipine [Norvasc*] 5 mg PO DAILY 11/23/23 Aspirin [Aspirin EC 81 MG] 81 mg PO DAILY 30 Days #30 tab 11/23/23 Atorvastatin Calcium [Lipitor] 40 mg PO BEDTIME 30 Days #30 tab 11/23/23 hydroCHLOROthiazide [Hydrochlorothiazide] 12.5 mg PO DAILY 11/23/23 Clopidogrel Bisulfate [Plavix*] 75 mg PO DAILY 11/24/23 Clopidogrel Bisulfate [Plavix] 75 mg PO DAILY 30 Days #30 tab 11/24/23 New Medications: Aspirin [Aspirin EC 81 MG] 81 mg PO DAILY 30 Days #30 tab Atorvastatin Calcium [Lipitor] 40 mg PO BEDTIME 30 Days #30 tab Clopidogrel Bisulfate [Plavix] 75 mg PO DAILY 30 Days #30 tab Physician Discharge Instructions: Joy Soler presented to the emergency room with chief complaint of chest pain. She was evaluated in the emergency department and admitted for continued monitoring. High sensitive troponin are negative, EKG negative for ST elevation/depression. CTA of the chest was also performed which was negative for pulmonary embolism showed mild fusiform aneurysmal dilation of the ascending thoracic aorta measuring 4.1 cm in caliber. Ultrasound of lower extremities negative for DVT. Left heart catheterization was performed by Dr. Morillo and one stent was placed in the OM1. Plan to follow up with Dr. Morillo as outpatient for a stress test in one month and monitoring of the mild fusiform aneurysmal dialtion. 1. Follow up with Dr. Morillo for continued heart health, Stress test in one month, and aneurysm management 2. Follow up with PCP for continued medication management/refills 3. Continue heart healthy diet 4. Acitivity as tolerated 5. Return to the ED if symptoms worsen New medications Atorvastatin 40 mg daily- increased dose Aspirin 81 mg daily-for four months or until Dr. Morillo stops this medication Plavix Continue taking plavix Diet: AHA Activity: Ad carie Followup: Mo Denney DO [Primary Care Provider] - Keaton Morillo MD [ACTIVE - CAN ADMIT] -
[2023-11-24 10:00] VITALS: BP 138/78
[2023-11-24 10:57] VITALS: TEMP 98.2; O2SAT 99
--- NOTE | 2023-11-24 16:39 | EKG ---
Test Date: 2023-11-24 Test Time: 06:01:50 [employer]: HB MEASUREMENT RESULTS: Intervals: Rate: 75 DC: 140 QRSD: 86 QT: 394 QTc: 439 [place]: P: 68 DC: 140 QRS: 12 T: 72 INTERPRETIVE STATEMENTS: Normal sinus rhythm Normal ECG Compared to ECG 11/22/2023 15:40:48 Myocardial infarct finding no longer present Electronically Signed On 11-24-23 16:38:22 [employer] by Lawrence Reyna
== END 2023-11-24 10:48 | disposition home or self-care (01) ==
LOC: ER 12:45 → ERHOLD 17:29 → 4TH 19:39
PROVIDERS: ADMIT Internal Medicine; ATTEND Internal Medicine
DX: I25.110 Atherosclerotic heart disease of native coronary artery with unstable angina pectoris (principal); I71.21 Aneurysm of the ascending aorta, without rupture; I10 Essential (primary) hypertension; E78.5 Hyperlipidemia, unspecified; F41.9 Anxiety disorder, unspecified; R11.0 Nausea; Z11.52 Encounter for screening for COVID-19; E66.9 Obesity, unspecified; Z68.35 Body mass index [BMI] 35.0-35.9, adult; Z86.73 Personal history of transient ischemic attack (TIA), and cerebral infarction without residual deficits; Z90.710 Acquired absence of both cervix and uterus
CPT/HCPCS: 96361; 93005 ×3; 85025 ×3; 80048 ×3; 36415 ×2; 83735; 85610; 80061; 80076; 85347 ×2; 84443; 81003; 84484 ×6; 84439; 83690; 83880; 87804 ×2; 71275; 71045; 92928; 93458; 76937; 93970; 96375; 96372; 96374; 99285; 87811; Q9967 ×2; C1893; C1725; J1644; J1650 ×3; J2001; J2250; J3010; J2270 ×4; J2405 ×2; J7040; J7030; G0378 ×5; 99152; 99153; C9600; J0461

== ENCOUNTER 2024-07-20 09:12 | Emergency (ER) | payer OTHER ==
--- OUTSIDE RECORDS SUMMARY | 2024-07-20 09:16 | XMS REPORT | Continuity of Care Document ---
Author Name Unknown Address [address] [facility] [address] [place] [address] [facility] thconnect Address [address] [facility] [address] [place] [address] Care Team Providers Care Security Escort Name Role Phone Kristine Ramírez Primary Care Physician BEN LINARES Attending Clinician Unavailable LAB90 Attending Clinician Unavailable LISA RICHARDSON Attending Clinician Unavailable MARICARMEN JONES Attending Clinician Unava ilable LAB47 Attending Clinician Unavailable ISABELLA DONALDSON Attending Clinician Unavailable LATOYA GARDUNO Attending Clinician Unavail able KARLEY NAVARRO Attending Clinician UnavailMICHELLE Kimbrough Attending Clinician Unav ailable Taylor Pickens Attending Clinician TAYLOR RODRIGUEZ Attending Clinician Unavailable Payers Payer Name Policy Type Policy Number Effective Date Expirati on Date Source [employer] MP [facility] [employer] 94 [place] 9 [id number] 2023 00:00:00 Problems Condition Name Condition Details Condition Category Status Onset Date Resolution Date Last Treatment Date Treating Clinician Comments Source 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 06-20 00:00: 00 Kathleen paredes Anxiety Anxiety Disease Active 05-21 00:00: 00 Kathleen paredes Bipolar 1 disorder (multi HCC) Bipolar 1 disorder (multi HCC) Disease Active 8 00:00: 00 Kathleen Sekarinaold - Externa l Prediabete s Prediabete s Disease Active 8 00:00: 00 Kathleen Seybold - Externa l Chronic hepatitis C without hepatic coma (multi HCC) Chronic hepatitis C without hepatic coma (multi HCC) Disease Active 8 00:00: 00 Kathleen Mckinneyold - Externa l Mild intermitte nt asthma without complicati on (HHS-HCC) Mild intermitte nt asthma without complicati on (HHS-HCC) Disease Active 8 00:00: 00 Kathleen Seybold - Externa l Hepatitis C antibody test positive Hepatitis C antibody test positive Disease Active 04-16 00:00: 00 Kathleen Seybold - Externa l Chronic hepatitis C without hepatic coma Chronic hepatitis C without hepatic coma Disease Active 04-16 00:00: 00 Kathleen Mckinneyold - Externa l 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 back pain with left-sided sciatica Disease Active 04-16 00:00: 00 Kathleen Seybold - Externa l Rheumatoid arthritis (multi HCC) Rheumatoid arthritis (multi HCC) Disease Active 04-16 00:00: 00 Kathleen Seybold - Externa l Allergies, Adverse Reactions, Alerts Allergy Name Allergy Type Status Severity Reaction(s) Onset Date Inactive Date Treating Clinician Comments Source [place] - Intraven ous Propensi ty to adverse reaction to drug Active 04-15 00:00: 00 Codeine Propensi ty to adverse reaction s Active 04-15 00:00: 00 Kathleen Seybold - Externa l NO KNOWN ALLERGIE S Drug Class Active [facility] Social History Social Habit Start Date Stop Date Quantity Comments Source Sexual orientation 2024-03-27 07:37:33 Heterosexual (finding) Kathleen Adrian - External Exposure to SARS-CoV-2 (event) Not sure [facility] Gender identity Cherri Adrian - External Alcoholic beverage intake 2024-06-20 00:00:00 2024-06-20 00:00:00 Ex-drinker (finding) Kathleen Adrian - External Cigarettes smoked current (pack per day) - Reported 2024-06-20 00:00:00 2024-06-20 00:00:00 Kathleen Adrian - External Cigarette pack-years 2024-06-20 00:00:00 2024-06-20 00:00:00 Kathleen Adrian - External Tobacco use and exposure 2024-06-20 00:00:00 2024-06-20 00:00:00 Smokeless tobacco non-user Kathleen Adrian - External Alcohol intake 2023-12-02 00:00:00 2023-12-02 00:00:00 Ex-drinker (finding) Kathleen Adrian - External History of Social function 2023-07-10 00:00:00 2023-07-10 00:00:00 Kathleen Adrian - External Tobacco Comment 2023-03-23 00:00:00 2023-03-23 00:00:00 Restarted smoking - 1/4 pack a day. Kathleen Adrian - External Alcohol Comment 2023-01-22 00:00:00 2023-01-22 00:00:00 Alcoholic stopped 6 years ago Kathleen Adrian - External History of tobacco use 1990-10-18 00:00:00 2020-10-18 00:00:00 Cigarette Smoker Kathleen Adrian - External Sex assigned at 1960 00:00:00 1960 00:00:00 F Kathleen Adrian - External Smoking Status Start Date Stop Date Source Unknown if ever smoked [facility] Ex-smoker 2024-06-20 00:00:00 2024-06-20 00:00:00 Gabriel Adrian - External Medications Ordered Medication Name Filled Medication Name Start Date Stop Date Current Medication? Ordering Clinician Indication Dosage Frequency Signature (SIG) Comments Components Source HYDROcodone -Acetaminop hen (NORCO) 5-325 MG oral Tablet 06-20 14:27: 02 06-20 00:00 :00 No 1{tbl} Q.25D Take 1 tablet by mouth every 6 hours as needed for pain. Kathleen Adrian - Externa l Alprazolam 1 MG oral Tablet 06-20 00:00: 00 Yes [id number] 1mg Q.5D Take 1 tablet (1 mg total) by mouth 2 times daily. Kathleen paredes Tizanidine HCl 2 MG oral Tablet 06-20 00:00: 00 Yes [id number] 2mg QD Take 1 tablet (2 mg total) by mouth nightly as needed for muscle spasms. Kathleen paredes Clopidogrel Bisulfate (PLAVIX) 75 MG oral Tablet 05-29 00:00: 00 Yes [id number] 75mg QD take 1 tablet by mouth every day Kathleen paredes Alprazolam 1 MG oral Tablet 05-29 00:00: 00 06-20 00:00 :00 No [id number] 1mg Q.5D take 1 tablet by mouth 2 times daily Kathleen paredes Amlodipine Besylate (NORVASC) 5 MG oral Tablet - 00:00: 00 Yes [id number] 5mg QD Take 1 tablet (5 mg total) by mouth daily. Kathleen paredes hydroCHLORO thiazide 12.5 MG oral Tablet - 00:00: 00 Yes [id number] 12.5mg QD Take 1 tablet (12.5 mg total) by mouth daily. Kathleen paredes Atorvastati n Calcium 40 MG oral Tablet -15 00:00: 00 Yes [id number] 40mg QD Take 1 tablet (40 mg total) by mouth nightly. Kathleen paredes Clopidogrel Bisulfate (PLAVIX) 75 MG oral Tablet 12-02 00:00: 00 12-02 00:00 :00 No [id number] 75mg Take 1 tablet (75 mg total) by mouth daily. Kathleen paredes Alprazolam 1 MG oral Tablet -15 00:00: 00 12-02 00:00 :00 No [id number] 1mg Take 1 tablet (1 mg total) by mouth 2 times daily. Kathleen paredes hydroCHLORO thiazide 12.5 MG oral Tablet 2024-0 2-08 00:00: 00 Yes [id number] 12.5mg Take 1 tablet (12.5 mg total) by mouth daily. Kathleen paredes Aspirin Low Dose 81 MG oral Tablet Delayed Response 11-24 00:00: 00 Yes 81mg QD Take 1 tablet (81 mg total) by mouth daily. Kathleen paredes Clopidogrel Bisulfate (PLAVIX) 75 MG oral Tablet 11-24 00:00: 00 12-02 00:00 :00 No 75mg Take 1 tablet (75 mg total) by mouth daily. Kathleen paredes Atorvastati n Calcium 10 MG oral Tablet 11-22 00:00: 00 12-02 00:00 :00 No [id number] 10mg Take 1 tablet (10 mg total) by mouth nightly. Kathleen paredes Alprazolam 1 MG oral Tablet 2022-10 00:00: 00 12-02 00:00 :00 No [id number] 1mg TAKE 1 TABLET BY MOUTH TWICE A DAY Kathleen paredes HYDROcodone -Acetaminop hen [...] MG oral Tablet 2022-10 00:00: 00 Yes [id number] 5mg Take 1 tablet (5 mg total) by mouth daily. Kathleen paredes Alprazolam 1 MG oral Tablet 2022-10 0 00:00: 00 Yes [id number] 1mg TAKE 1 TABLET BY MOUTH 2 TIMES DAILY Kathleen paredes FLUTICASONE PROPIONATE, NASAL, 50 MCG/ACT nasal Suspension 2022-10 0 00:00: 00 06-20 00:00 :00 No USE 1 SPRAY IN EACH NOSTRIL ONCE A DAY Kathleen paredes HYDROcodone -Acetaminop hen (NORCO) 5-325 MG oral Tablet 07-07 14:15: 32 Yes 1{tbl} Q.25D Take 1 tablet by mouth every 6 hours as needed for pain. Kathleen paredes FLUTICASONE PROPIONATE, NASAL, 50 MCG/ACT nasal Suspension 07-07 14:13: 17 07-07 00:00 :00 No 50ug Use 1 spray (50 mcg total) in each nostril daily Kathleen paredes Sod Picosulfate -Mag Ox-Cit Acd (Clenpiq) 10-3.5-12 MG-GM -GM/175ML oral Solution 07-07 00:00: 00 08-20 00:00 :00 No [id number] Instructio ns provided to patient. Follow instructio ns provided by provider.. Kathleen paredes Alprazolam 1 MG oral Tablet 06-11 00:00: 00 Yes [id number] 1mg Take 1 tablet (1 mg total) [...] MG oral Tablet 05-21 00:00: 00 Yes [id number] 12.5mg Take 1 tablet (12.5 mg total) by mouth daily Kathleen paredes Atorvastati n Calcium (Lipitor) 10 MG oral Tablet 05-21 00:00: 00 Yes [id number] 10mg Take 1 tablet (10 mg total) by mouth nightly Kathleen paredes Albuterol HFA 108 (90 Base) MCG/ACT IN AERS 05-21 00:00: 00 Yes [id number] 2{puff} Q.25D Inhale 2 puffs into the lungs every 6 hours as needed for wheezing or shortness of breath Kathleen paredes Amlodipine Besylate (NORVASC) 5 MG oral Tablet 05-21 00:00: 00 08-20 00:00 :00 No [id number] 5mg Take 1 tablet (5 mg total) by mouth daily Kathleen paredes Gabapentin 300 MG oral Capsule 05-21 00:00: 00 07-07 00:00 :00 No [id number] 300mg Take 1 capsule (300 mg total) by mouth 2 times daily Kathleen paredes Tizanidine HCl 2 MG oral Tablet 05-12 00:00: 00 05-21 00:00 :00 No [id number] 2mg QD TAKE 1 TABLET BY MOUTH NIGHTLY NEEDED FOR MUSCLE SPASMS. Kathleen paredes Alprazolam 1 MG oral Tablet 04-16 11:25: 00 Yes 1mg Take 1 tablet (1 mg total) by mouth 2 times daily Kathleen paredes FLUTICASONE PROPIONATE, NASAL, 50 MCG/ACT nasal Suspension 04-16 11:25: 00 Yes 50ug Use 1 spray (50 mcg total) in each nostril daily Kathleen paredes AMLODIPINE BENZOATE OR 04-16 [...] every 6 hours as needed Kathleen paredes Gabapentin 300 MG oral Capsule 04-16 00:00: 00 Yes [id number] 300mg Take 1 capsule (300 mg total) by mouth 3 times daily Kathleen paredes Meloxicam 15 MG oral Tablet 04-16 00:00: 00 Yes [id number] 15mg Take 1 tablet (15 mg total) by mouth daily Kathleen paredes Tizanidine HCl 2 MG oral Tablet 04-16 00:00: 00 Yes [id number] 2mg QD Take 1 tablet (2 mg total) by mouth nightly as needed for muscle spasms Kathleen paredes Nicotine 21-14-7 MG/24HR transdermal Kit 04-09 00:00: 00 Yes [id number] Use per package directions Kathleen paredes Atorvastati n Calcium (Lipitor) 10 MG oral Tablet 04-02 00:00: 00 Yes [id number] 10mg Take 1 tablet (10 mg total) [...] total) in each nostril daily Kathleen paredes Nicotine 21-14-7 MG/24HR transdermal Kit 01-25 00:00: 00 Yes [id number] Use per package directions Kathleen paredes Meloxicam 7.5 MG oral Tablet 01-25 00:00: 00 04-16 00:00 :00 No [id number] 7.5mg Take 1 tablet (7.5 mg total) by mouth daily Kathleen paredes Amlodipine Besylate (NORVASC) 5 MG oral Tablet 3-17 00:00: 00 05-21 00:00 :00 No 5mg Take 1 tablet (5 mg total) by mouth daily Kathleen paredes Gabapentin 300 MG oral Capsule 307 00:00: 00 Yes 300mg Take 1 capsule [...] IN THE MORNING 04-15 00:00: 00 No diclofenac sodium 75 mg tablet,sushil yed release 2020-10 2- 00:00: 00 No 1mg sumatriptan 50 mg tablet 2020-10 2 00:00: 00 No 1mg sumatriptan 50 mg tablet 2020-10 0- 00:00: 00 No 1mg diclofenac sodium 75 mg tablet,sushil yed release 2020-10 0 00:00: 00 No 1mg diclofenac sodium 75 mg tablet,sushil yed release 9-16 00:00: 00 No 1mg ProAir HFA 90 mcg/actuati on aerosol inhaler 8 00:00: 00 No 12mcg/a ctuatio n sumatriptan 50 mg tablet 8 00:00: 00 No 1mg diclofenac sodium 75 mg tablet,sushil yed release 06-03 00:00: 00 No 1mg simvastatin 20 mg tablet 06-03 00:00: 00 No 1mg methotrexat e sodium 2.5 mg tablet 06-03 00:00: 00 No 3mg ProAir HFA 90 mcg/actuati on aerosol inhaler 04-15 00:00: 00 No 12mcg/a ctuatio n diclofenac sodium 75 mg tablet,sushil yed release 04-15 00:00: 00 No 1mg methotrexat e sodium 2.5 mg tablet 04-15 00:00: 00 No 3mg indomethaci n 50 mg capsule 0 6-23 00:00: 00 No 1mg indomethaci n 50 mg capsule 0 5-10 00:00: 00 No 1mg simvastatin 20 mg tablet 0 5-07 00:00: 00 No 1mg sumatriptan 50 mg tablet 0 5-04 00:00: 00 No 1mg indomethaci n 50 mg capsule 0 3-03 00:00: 00 No 1mg Colace 100 mg capsule 0 1-13 00:00: 00 No 13mg indomethaci n 50 mg capsule 2019-1 1-20 00:00: 00 No 1mg methocarbam ol 750 mg tablet 2019-0 9-16 00:00: 00 No 1mg indomethaci n 50 mg capsule 0 9-16 00:00: 00 No 1mg methocarbam ol 750 mg tablet 0 9-15 00:00: 00 No 1mg indomethaci n 50 mg capsule 0 9-15 00:00: 00 No 1mg indomethaci n 50 mg capsule 0 7-28 00:00: 00 No 1mg simvastatin 20 mg tablet 0 6-09 00:00: 00 No 1mg indomethaci n 50 mg capsule 0 6-09 00:00: 00 No 1mg prednisone 20 mg tablet 0 5-05 00:00: 00 No 1mg methocarbam ol 750 mg tablet 0 5-05 00:00: 00 No 1mg gabapentin 400 mg capsule 0 5-05 00:00: 00 No 1mg diclofenac sodium 75 mg tablet,sushil yed release 2019-0 3-31 00:00: 00 No 1mg diclofenac sodium 75 mg tablet,sushil yed release 2019-0 2-25 00:00: 00 No 1mg venlafaxine ER 75 mg tablet,exte nded release 24 hr 2019-0 2-14 00:00: 00 No 1mg prednisone 5 mg tablet 2019-0 2-11 00:00: 00 No 1mg naproxen 500 mg tablet 0 1-27 00:00: 00 No 1mg simvastatin 20 mg tablet 2019-0 1-27 00:00: 00 No 1mg cyclobenzap rine 10 mg tablet 0 1-27 00:00: 00 No 1mg aripiprazol e 5 mg tablet 1 00:00: 00 No 1mg fluticasone propionate 50 mcg/actuati on nasal spray,suspe nsion 11-13 00:00: 00 No 1mcg/ac tuation simvastatin 20 mg tablet 2018-10 015 00:00: 00 No 1mg fluticasone propionate 50 mcg/actuati on nasal spray,suspe nsion 2018-10 0 00:00: 00 No 1mcg/ac tuation naproxen 500 mg tablet 2018-10 008 00:00: 00 No 1mg cyclobenzap rine 10 mg tablet 07-11 00:00: 00 No 1mg indomethaci n 50 mg capsule 07-11 00:00: 00 No 1mg fluticasone propionate 50 [...] Filled Immunization Name Date Status Comments Source [place] COVID-19 Vaccine 2021-10-02 00:00:00 Completed Covid-19 Vaccine ([facility]) 2021-10-02 00:00:00 Completed Kathleen Seybold - External Covid-19 Vaccine ([facility]) 2021-10-02 00:00:00 Completed Kathleen Marmolejoybold - External Covid-19 Vaccine ([facility]) Unknown Completed Kathleen Seybold - External Covid-19 Vaccine ([facility]) Unknown Completed Kathleen Seybold - External Covid-19 Vaccine ([facility]) Unknown Completed Kathleen Seybold - External Covid-19 Vaccine ([facility]) Unknown Completed Kathleen Seybold - External Covid-19 Vaccine ([facility]) Unknown Completed Kathleen Seybold - External Vital Signs Vital Name Observation Time Observation Value Comments S ource Systolic blood pressure 2024-06-20 19:09:00 120 mm[Hg] Kathleen Ordonez ld - External Diastolic blood pressure 2024-06-20 19:09:00 86 mm[Hg] Kathleen Mckinneyo ld - External Heart rate 2024-06-20 19:09:00 98 /min Alexandra Adrian - External Body temperature 2024-06-20 19:09:00 36.44 Cari Kathleen Marmolejoybold - External Respiratory rate 2024-06-20 19:09:00 16 /min Kathleen Marmolejoybnola - External Body height 2024-06-20 19:09:00 167.6 cm Cherri tillman Seybold - External Body weight 2024-06-20 19:09:00 94.802 kg Cherri tillman Seybold - External BMI 2024-06-20 19:09:00 33.73 kg/m2 Cherri ey Seybold - External Oxygen saturation in Arterial blood by Pulse oximetry 2024-06-20 19:09:00 100 /min Kathleen Seybo ld - External Systolic blood pressure 2023-12-02 15:15:00 123 mm[Hg] Kathleen Seybo ld - External Diastolic blood pressure 2023-12-02 15:15:00 81 mm[Hg] Kathleen Seybo ld - External Heart rate 2023-12-02 15:15:00 97 /min Kelse y Seybold - External Body temperature 2023-12-02 15:15:00 36.61 Cari Kathleen Seybold - External Respiratory rate 2023-12-02 15:15:00 14 /min Kathleen Seybold - External Body height 2023-12-02 15:15:00 167.6 cm Cherri ey Seybold - External Body weight 2023-12-02 15:15:00 94.802 kg Cherri ey Seybold - External BMI 2023-12-02 15:15:00 33.73 kg/m2 Cherri ey Seybold - External Oxygen saturation in Arterial blood by Pulse oximetry 2023-12-02 15:15:00 99 /min Kathleen Seybo ld - External Systolic blood pressure 2023-08-20 14:06:00 138 mm[Hg] [...] Pulse oximetry 2023-08-20 14:06:00 98 /min Kathleen Mckinneyo ld - External Systolic blood pressure 2023-07-07 19:11:00 121 mm[Hg] Kathleen Marmolejoybo ld - External Diastolic blood pressure 2023-07-07 19:11:00 79 mm[Hg] Kathleen Marmolejoybo ld - External Heart rate 2023-07-07 19:11:00 [...] Pulse oximetry 2023-05-21 15:56:00 99 /min Kathleen Marmolejoybo ld - External Systolic blood pressure 2023-04-16 16:23:00 121 mm[Hg] Kathleen Marmolejoybo ld - External Diastolic blood pressure 2023-04-16 16:23:00 83 mm[Hg] Kathleen Marmolejoybo ld - External Heart rate 2023-04-16 16:23:00 [...] blood pressure 2023-01-25 19:27:00 130 mm[Hg] Kathleen Seybo ld - External Diastolic blood pressure 2023-01-25 19:27:00 88 mm[Hg] Kathelen Seybo ld - External Heart rate 2023-01-25 19:27:00 87 /min Kelse y Seybold - External Body temperature 2023-01-25 19:27:00 36.17 Cari Kathleen Seybold - External Respiratory rate 2023-01-25 19:27:00 16 /min Kathleen Seybold - External Body height 2023-01-25 19:27:00 167.6 cm Cherri ey Seybold - External Body weight 2023-01-25 19:27:00 97.16 kg Cherri ey Seybold - External BMI 2023-01-25 19:27:00 34.57 kg/m2 Cherri ey Seybold - External Oxygen saturation in Arterial blood by Pulse oximetry 2023-01-25 19:27:00 98 /min Kathleen Ordonez ld - External BP Systolic 2022-04-15 17:08:00 [...] US ABDOMEN COMPLETE 2021-01-08 19:00:19 Taylor Rodriguez [facility] Plan of Care Planned Activity Planned Date Details Comments Source Goal Plan of Care Note [code = 67288-4] Goal Plan of Care Note [code = 35029-0] Goal Plan of Care Note [code = 56188-1] Goal Plan of Care Note [code = 34533-2] Goal Plan of Care Note [code = 10468-9] Goal Plan of Care Note [code = 77669-6] Goal Plan of Care Note [code = 55192-8] Goal Plan of Care Note [code = 77726-4] Goal Plan of Care Note [code = 08262-9] Goal Plan of Care Note [code = 37336-9] Goal Plan of Care Note [code = 07093-9] Goal Plan of Care Note [code = 65888-8] Goal Plan of Care Note [code = 44505-4] Goal Plan of Care Note [code = 02869-3] Goal Plan of Care Note [code = 95857-5] Goal Plan of Care Note [code = 41889-7] Goal Plan of Care Note [code = 40745-2] Goal Plan of Care Note [code = 79452-4] Goal Plan of Care Note [code = 10684-5] Goal Plan of Care Note [code = 97502-7] Goal Plan of Care Note [code = 72470-5] Goal Plan of Care Note [code = 18432-1] Goal Plan of Care Note [code = 39951-3] Goal Plan of Care Note [code = 30322-4] Goal Plan of Care Note [code = 44639-3] Goal Plan of Care Note [code = 39627-4] Goal Plan of Care Note [code = 71712-0] Goal Plan of Care Note [code = 53254-5] Goal Plan of Care Note [code = 04172-1] Goal Plan of Care Note [code = 19448-5] Goal Plan of Care Note [code = 08965-7] Goal Plan of Care Note [code = 14146-3] Goal Plan of Care Note [code = 31085-1] Goal Plan of Care Note [code = 69109-1] Encounters Start Date/Time End Date/Time Encounter Type Admission Type Attending [email or web address] Care Department Encounter ID Source 2024-09-19 10:45:00 2024-09-19 10:45:00 Outpatient PREBEN RUIZ [id number] Kathleen [facility] 2024-07-17 09:55:00 2024-07-17 09:55:00 Outpatient LAB90 KATHLEEN GAY [id number] Kathleen [facility] 2024-07-13 00:00:00 2024-07-13 00:00:00 Outpatient BEN LINARES [id number] [facility] 2024-06-21 00:00:00 2024-06-21 00:00:00 Outpatient PREBEN RUIZ [id number] Kathleen eric 2024-06-20 14:30:00 2024-06-20 14:30:00 Outpatient BEN LINARES [id number] Kathleen eric 2024-06-20 00:00:00 2024-06-20 00:00:00 Outpatient KATHLEEN GAY [id number] Kathleen Adrian 2024-05-28 00:00:00 2024-05-28 00:00:00 Outpatient BEN LINARES [id number] [facility] 2024-05-28 00:00:00 2024-05-28 00:00:00 Outpatient PREZAS, BEN GAY KATHLEEN [id number] [facility] 2024-05-05 00:00:00 2024-05-05 00:00:00 Outpatient PREZAS, BEN KATHLEEN GAY [id number] [facility] 2024-03-24 00:00:00 2024-03-24 00:00:00 Outpatient PREZAS, BEN GAY KATHLEEN [id number] [facility] 2024-03-20 00:00:00 2024-03-20 00:00:00 Outpatient PREZAS, BEN KATHLEEN GAY [id number] Kathleen [facility] 2024-02-09 00:00:00 2024-02-09 00:00:00 Outpatient PREZAS, BEN KATHLEEN GAY [id number] [facility] 2024-01-27 00:00:00 2024-01-27 00:00:00 Outpatient PREZAS, BEN KATHLEEN GAY [id number] [facility] 2024-01-12 00:00:00 2024-01-12 00:00:00 Outpatient LISA RICHARDSON KATHLEEN GAY [id number] [facility] 2024-01-10 00:00:00 2024-01-10 00:00:00 Outpatient PREZAS, BEN KATHLEEN GAY [id number] [facility] 2023-12-29 15:30:00 2023-12-29 15:30:00 Outpatient PREZAS, BEN KATHLEEN GAY [id number] [facility] 2023-12-24 00:00:00 2023-12-24 00:00:00 Outpatient PREZAS, BEN GAY [id number] [facility] 2023-12-24 00:00:00 2023-12-24 00:00:00 Outpatient KATHLEEN GAY [id number] [facility] 2023-12-23 00:00:00 2023-12-23 00:00:00 Outpatient KATHLEEN GAY [id number] Kathleen [facility] 2023-12-02 09:30:00 2023-12-02 09:30:00 Outpatient PREZAS, BEN KATHLEEN GAY [id number] [facility] 2023-12-02 00:00:00 2023-12-02 00:00:00 Outpatient KATHLEEN GAY [id number] [facility] 2023-12-02 00:00:00 2023-12-02 00:00:00 Outpatient DEBRA, LISA KATHLEEN GAY [id number] [facility] 2023-11-24 00:00:00 2023-11-24 00:00:00 Outpatient PREZAS, BEN KATHLEEN GAY [id number] [facility] 2023-11-23 00:00:00 2023-11-23 00:00:00 Outpatient PREZAS, BEN KATHLEEN GAY [id number] [facility] 2023-11-22 00:00:00 2023-11-22 00:00:00 Outpatient PREZAS, BEN KATHLEEN GAY [id number] [facility] 2023-11-20 00:00:00 2023-11-20 00:00:00 Outpatient PREZAS, BEN KATHLEEN GAY [id number] [facility] 2023-10-19 00:00:00 2023-10-19 00:00:00 Outpatient DEBRA, LISA GAY [id number] [facility] 2023-09-28 00:00:00 2023-09-28 00:00:00 Outpatient PREZAS, BEN KATHLEEN GAY [id number] [facility] 2023-09-06 00:00:00 2023-09-06 00:00:00 Outpatient DEBRA, LISA GAY [id number] Kathleen [facility] 2023-09-01 00:00:00 2023-09-01 00:00:00 Outpatient DEBRA, LISA GAY [id number] Kathleen Seybold 2023-08-31 13:30:00 2023-08-31 13:30:00 Outpatient KATHLEEN GAY [id number] Kathleen [facility] 2023-08-30 00:00:00 2023-08-30 00:00:00 Outpatient PREZAS, BEN GAY KATHLEEN [id number] [facility] 2023-08-24 00:00:00 2023-08-24 00:00:00 Outpatient KATHLEEN KATHLEEN [id number] [facility] 2023-08-20 09:15:00 2023-08-20 09:15:00 Outpatient PREZAS, BEN GAY KATHLEEN [id number] [facility] 2023-08-20 00:00:00 2023-08-20 00:00:00 Outpatient PREZAS, BEN GAY KATHLEEN [id number] [facility] 2023-08-17 00:00:00 2023-08-17 00:00:00 Outpatient PREZAS, BEN GAY KATHLEEN [id number] [facility] 2023-08-04 11:00:00 2023-08-04 11:00:00 Outpatient KATHLEEN GAY [id number] [facility] 2023-08-04 09:00:00 2023-08-04 09:00:00 Outpatient KATHLEEN KATHLEEN [id number] [facility] 2023-08-02 00:00:00 2023-08-02 00:00:00 Outpatient MARICARMEN JONES [id number] [facility] 2023-07-30 00:00:00 2023-07-30 00:00:00 Outpatient PREZAS, BEN KATHLEEN GAY [id number] [facility] 2023-07-12 00:00:00 2023-07-12 00:00:00 Outpatient MARICARMEN JONES [id number] [facility] 2023-07-12 00:00:00 2023-07-12 00:00:00 Outpatient PREZASBEN KATHLEEN GAY [id number] [facility] 2023-07-07 15:00:00 2023-07-07 15:00:00 Outpatient HORACIO GAY [id number] Kathleen [facility] 2023-07-07 14:30:00 2023-07-07 14:30:00 Outpatient LISA RICHARDSON [id number] [facility] 2023-06-11 00:00:00 2023-06-11 00:00:00 Outpatient BEN LINARES KATHLEEN GAY [id number] [facility] 2023-06-10 00:00:00 2023-06-10 00:00:00 Outpatient BEN LINARES KATHLEEN GAY [id number] [facility] 2023-06-10 00:00:00 2023-06-10 00:00:00 Outpatient BEN LINARES KATHLEEN GAY [id number] [facility] 2023-05-25 00:00:00 2023-05-25 00:00:00 Outpatient ANIKAISABELLA KATHLEEN GAY [id number] [facility] 2023-05-24 00:00:00 2023-05-24 00:00:00 Outpatient MARICARMEN JONES [id number] [facility] 2023-05-24 00:00:00 2023-05-24 00:00:00 Outpatient KATHLEEN GAY [id number] [facility] 2023-05-21 11:00:00 2023-05-21 11:00:00 Outpatient BEN LINARES KATHLEEN GAY [id number] [facility] 2023-05-18 11:00:00 2023-05-18 11:00:00 Outpatient LATOYA GARDUNO [id number] [facility] 2023-05-12 00:00:00 2023-05-12 00:00:00 Outpatient BEN LINARES KATHLEEN GAY [id number] Kathleen Seybold 2023-04-28 00:00:00 2023-04-28 00:00:00 Outpatient MARICARMEN JONES [id number] Kathleen Seybold 2023-04-26 00:00:00 2023-04-26 00:00:00 Outpatient MARICARMEN JONES [id number] Kathleen Seybold 2023-04-22 00:00:00 2023-04-22 00:00:00 Outpatient MARICARMEN JONES [id number] Kathleen [facility] 2023-04-21 00:00:00 2023-04-21 00:00:00 Outpatient KATHLEEN KATHLEEN [id number] [facility] 2023-04-16 11:30:00 2023-04-16 11:30:00 Outpatient PREZAS, BEN KATHLEEN GAY [id number] Kathleen [facility] 2023-04-12 00:00:00 2023-04-12 00:00:00 Outpatient MARICARMEN JONES KATHLEEN GAY [id number] Kathleen [facility] 2023-04-09 00:00:00 2023-04-09 00:00:00 Outpatient PREZAS, BEN KATHLEEN GAY [id number] Kathleen [facility] 2023-04-06 11:30:00 2023-04-06 11:30:00 Outpatient KARLEY NAVARRO KATHLEEN GAY [id number] [facility] 2023-04-06 11:05:00 2023-04-06 11:05:00 Outpatient NITIN KATHLEEN GAY [id number] [facility] 2023-04-02 00:00:00 2023-04-02 00:00:00 Outpatient PREZAS, BEN KATHLEEN GAY [id number] Kathleen [facility] 2023-04-01 13:40:00 2023-04-01 13:40:00 Outpatient ROGELIOMICHELLE ALMANZA KATHLEEN GAY [id number] Kathleen [facility] 2023-03-31 00:00:00 2023-03-31 00:00:00 Outpatient PREZAS, BEN KATHLEEN GAY [id number] Kathleen [facility] 2023-03-30 00:00:00 2023-03-30 00:00:00 Outpatient PREZAS, BEN GAY [id number] Kathleen [facility] 2023-03-30 00:00:00 2023-03-30 00:00:00 Outpatient PREZAS, BEN GAY [id number] [facility] 2023-03-26 00:00:00 2023-03-26 00:00:00 Outpatient LATOYA GARDUNO [id number] [facility] 2023-03-26 00:00:00 2023-03-26 00:00:00 Outpatient MARICARMEN JONES KATHLEEN GAY [id number] Kathleen [facility] 2023-03-26 00:00:00 2023-03-26 00:00:00 Outpatient KATHLEEN GAY [id number] [facility] 2023-03-25 00:00:00 2023-03-25 00:00:00 Outpatient ROBERTMARICARMEN CARLTON KATHLEEN GAY [id number] [facility] 2023-03-23 15:40:00 2023-03-23 15:40:00 Outpatient HORACIO KATHLEEN GAY [id number] Kathleen [facility] 2023-03-23 14:45:00 2023-03-23 14:45:00 Outpatient LATOYA GARDUNO KATHLEEN GAY [id number] Kathleen [facility] 2023-03-10 00:00:00 2023-03-10 00:00:00 Outpatient MARICARMEN JONES [id number] [facility] 2023-03-04 00:00:00 2023-03-04 00:00:00 Outpatient MILAGROSBEN KATHLEEN GAY [id number] [facility] 2023-02-04 00:00:00 2023-02-04 00:00:00 Outpatient ROBERTMARICARMEN CARLTON KATHLEEN GAY [id number] [facility] 2023-02-02 00:00:00 2023-02-02 00:00:00 Outpatient MARICARMEN JONES [id number] [facility] 2023-01-26 00:00:00 2023-01-26 00:00:00 Outpatient ERICKISABELLA LYNCH KATHLEEN GAY [id number] [facility] 2023-01-25 14:30:00 2023-01-25 14:30:00 Outpatient ROBERT MARICARMEN GAY [id number] [facility] 2022-10-20 09:20:16 2022-10-20 09:20:16 Outpatient SFA SFA [id number] Erasmo Hess 2022-04-15 00:00:00 2022-04-15 00:00:00 Outpatient Visit [id number] 2021-01-08 12:50:52 2021-01-08 23:59:00 Hospital Encounter Taylor Rodriguez [facility] [id number] [facility] 2021-01-08 00:00:00 2021-01-08 00:00:00 Outpatient R TAYLOR RODRIGUEZ [facility] [id number] [facility] Results Test Description Test Time Test Comments Results Result Co mments Source HEMOGLOBIN [id number] 00:00:00* Test Item Value Reference Range Interpretation Comme nts HEMOGLOBIN A1c (test code = 25720) 6.1 % US ABDOMEN [id number] 19:21:42Mildly diffusely echogenic liver can be seen [...] No free fluid in the upper abdomen. Rimb, Radiant Results Inft User - 01/08/2021 2:22 [...] hepatic lesions identified to the extent visualized.No cholelithiasis.[facility] W/AUTO [id number] 00:00:00* Test Item Value Reference Range Interpretation [...] code = 1015) 343 K/UL COMPREHENSIVE METABOLIC [id number] 00:00:00* Test Item Value Reference Range Interpretation Comme nts GLUCOSE (test code = 2217) 123 MG/DL BUN (test code = 2208) 12 MG/DL CREATININE (test code = 2214) 0.82 MG/DL eGFR AMER. (test cod e = 22668) 90 ML/MIN/1.73 eGFR NON- AMER. (test code = 75189) 78 ML/MIN/1.73 CALC BUN/CREAT (test code = [...] ALT (test code = 2219) 40 U/L [id number] 00:00:00* Test Item Value Reference Range Interpretation Comme nts PROGESTERONE (test code = 2790) <0.20 NG/ML [id number] 00:00:00* Test Item Value Reference Range Interpretation Comme nts ESTRADIOL (test code = 2505) 19.6 PG/ML CCP [id number] 00:00:00* Test Item Value Reference Range Interpretation Comme nts CCP IgG (test code = 70453) 3 UNITS VITAMIN D, 25 [id number] 00:00:00* Test Item Value Reference Range Interpretation Comme nts VITAMIN D, 25 OH (test code = 4958) 29 NG/ML H. PYLORI (BREATH)2019-02-08 00:00:00* Test Item Value Reference Range Interpretation Comme nts H. PYLORI (BREATH) (test cod e = 31710) NEGATIVE RHEUMATOID FACTOR IgG, IgM, [id number] 00:00:00* Test Item Value Reference Range Interpretation Comme nts RHEUMATOID FACTOR IgG (test code = 01004) 3 Units RHEUMATOID FACTOR IgA (test code = 72485) 2 Units RHEUMATOID FACTOR IgM (test code = 47595) 69 Units SEDIMENTATION [id number] 00:00:00* Test Item Value Reference Range Interpretation Comme nts SEDIMENTATION RATE (test cod e = 1017) 28 MM/HOUR HIGH SENSITIVITY [id number] 00:00:00* Test Item Value Reference Range Interpretation Comme nts HIGH SENSITIVITY CRP (test c ode = 22823) 2.2 MG/L GREGG (ANTI-NUCLEAR AB) WITH REFLEX [id number] 00:00:00* Test Item Value Reference Range Interpretation Comme nts ANTI-NUCLEAR ANTIBODIES (rosi t code = 3506) NEGATIVE URIC [id number] 00:00:00* Test Item Value Reference Range Interpretation Comme nts URIC ACID (test code = 2233) 4.8 MG/DL VITAMIN D, 25 [id number] 00:00:00* Test Item Value Reference Range Interpretation Comme nts VITAMIN D, 25 OH (test code = 4958) 20 NG/ML IRON, [id number] 00:00:00* Test Item Value Reference Range Interpretation Comme nts IRON, SERUM (test code = 2222) 97 UG/DL CBC W/AUTO [id number] 00:00:00* Test Item Value Reference Range Interpretation [...] (test code = 1015) 304 K/UL HEMOGLOBIN [id number] 00:00:00* Test Item Value Reference Range Interpretation Comme nts HEMOGLOBIN A1c (test code = 41029) 5.7 % LIPID [id number] 00:00:00* Test Item Value Reference Range Interpretation Comme nts CHOLESTEROL (test code = 2210) 272 MG/DL TRIGLYCERIDES (test code = 2232) 134 MG/DL HDL CHOLESTEROL (test code = 2220) 52 MG/DL CALC LDL CHOL (test code = 2237) 193 MG/DL RISK RATIO LDL/HDL (test cod e = 2238) 3.72 RATIO COMPREHENSIVE METABOLIC [id number] 00:00:00* Test Item Value Reference Range Interpretation Comme nts GLUCOSE (test code = 2217) 101 MG/DL BUN (test code = 2208) 14 MG/DL CREATININE (test code = 2214) 0.84 MG/DL eGFR AMER. (test cod e = 98016) 89 ML/MIN/1.73 eGFR NON- AMER. (test code = 49406) 77 ML/MIN/1.73 CALC BUN/CREAT (test code = [...] THYROX. BIND. CAPAC. (test c ode = 85681) 1.1 T4 (THYROXINE) (test code = 2819) 8.1 UG/DL CORRECTED T4 (FTI) (test cod e = 2820) 7.4 UG/DL TSH, THIRD GENERATION (test code = 2821) 1.060 UIU/ML VAGINAL PATHOGENS DNA [id number] 00:00:00* Test Item Value Reference Range Interpretation Comme nts HEIKE SPECIES (test code = 86809) POSITIVE G. VAGINALIS (test code = 95811) POSITIVE T. VAGINALIS (test code = 67331) NEGATIVE PAP TEST, THINPREP, [id number] 00:00:00* Test Item Value Reference Range Interpretation Comme nts SOURCE: (test code = 8001) Cervical SLIDES: (test code = 8011) 1 LMP: (test code = 8021) NOT GIVEN SPECIMEN ADEQUACY: (test code = 24449) (NOTE) INTERPRETATION: (test code = 13720) NILM/NO EPITH. ABNORMALITY;SEE BELOW FURNITURE REMOVALIST: (test code = 8101) RONDA Rehman(ASCP)IAC QC TECHNOLOGIST: (test code = 8111) RONDA MARY(ASCP) LOCATION: (test code = 05771) (NOTE) CPT: (test code = 8140) (NOTE) HPV HIGH RISK WITH GENOTYPE, [id number] 00:00:00* Test Item Value Reference Range Interpretation Comme nts HPV HIGH RISK INTERP (test c ode = 11776) POSITIVE HPV 16 (test code = 32865) NEGATIVE HPV 18 (test code = 02443) NEGATIVE HPV, HR, OTHER GENOTYPES (te st code = 50524) POSITIVE HEPATITIS A IgM [REFLEX]2018-12-14 00:00:00* Test Item Value Reference Range Interpretation Comme nts HEPATITIS A IgM (test code = 2728) NON-REACTIVE HEPATITIS PROFILE (A,B,C)2018-12-14 00:00:00* Test Item Value [...] 4675) REACTIVE HCV INDEX (test code = 45970) 1.63 INTERPRETATION HEPATITIS A: (test code = 2552) (NOTE) INTERPRETATION HEPATITIS B: (test code = 64862) (NOTE) INTERPRETATION HEPATITIS C: (test code = 39246) (NOTE) HEPATITIS C [id number] 00:00:00* Test Item Value Reference Range Interpretation Comme nts HEPATITIS C GENOTYPE (test c ode = 99633) Not detected HIV AB/AG COMBO RFLX [id number] 00:00:00* Test Item Value Reference Range Interpretation Comme [facility] HIV 1/2 4TH GEN, RFLX CONF ( test code = 3514) NON-REACTIVE HCV RNA, PCR [id number] 00:00:00* Test Item Value Reference Range Interpretation Comme [facility] HCV RNA, PCR QUANT (test code = 4571) NOT DETEC IU/ML HCV VIRAL LOG (test code = 87699) NOT DETEC LOGIU/ML LIPID [id number] 00:00:00* Test Item Value Reference Range Interpretation Comme nts CHOLESTEROL (test code = 2210) 263 MG/DL TRIGLYCERIDES (test code = 2232) 183 MG/DL HDL CHOLESTEROL (test code = 2220) 58 MG/DL CALC LDL CHOL (test code = 2237) 168 MG/DL RISK RATIO LDL/HDL (test cod e = 2238) 2.90 RATIO CBC W/AUTO [id number] 00:00:00* Test Item Value Reference Range Interpretation [...] COUNT (test code = 1015) 290 K/UL [id number] 00:00:00* Test Item Value Reference Range Interpretation Comme nts TSH (test code = 2821) 1.08 UIU/ML HEMOGLOBIN [id number] 00:00:00* Test Item Value Reference Range Interpretation Comme nts HEMOGLOBIN A1c (test code = 69766) 5.6 % COMPREHENSIVE METABOLIC [id number] 00:00:00* Test Item Value Reference Range Interpretation Comme nts GLUCOSE (test code = 2217) 88 MG/DL BUN (test code = 2208) 13 MG/DL CREATININE (test code = 2214) 0.73 MG/DL eGFR AMER. (test cod e = 78077) 107 ML/MIN/1.73 eGFR NON- AMER. (test code = 12081) 92 ML/MIN/1.73 CALC BUN/CREAT (test code = [...]
[2024-07-20 09:40] LABS: Absolute Basophils 0.1 K/uL (0-0.5); Absolute Eosinophils 0.1 K/uL (0-0.5); Absolute Lymphocytes (CBC) 2.2 K/uL (0.7-4.9); Absolute Monocytes 0.4 K/uL (0.1-1.3); Absolute Neutrophil 3.1 K/uL (1.8-8.0); Basophils % 0.9 % (0-1.3); Eosinophils % 2.5 % (0-4.4); Hematocrit 38.1 % (36.0-45.0); Hemoglobin 12.6 g/dL (12.0-15.0); MCH 28.8 pg (27.0-35.0); MCHC 33.2 g/dL (32.0-36.0); MCV 86.7 fL (80-100); MPV 7.2 fL (7.6-11.3); Neutrophils % 52.6 % (41.7-73.7); Nucleated Red Blood Cells % 0.1 % (0-0); Platelets 278 thou/uL (152-406); Red Cell Distribution Width 14.2 % (12.1-15.2)
[2024-07-20 09:58] LABS: Anion Gap 6.8 mEq/L (5.0-15.0); Potassium 3.8 mEq/L (3.5-5.1); Troponin High Sensitivity 4.1 pg/mL (<58.9)
--- NOTE | 2024-07-20 10:48 | RAD REPORT ---
Procedure: Chest Single View History: Chest pain Comparison: November 2023 The lungs appear clear of acute infiltrate. No significant pleural effusion noted. The heart is normal size. IMPRESSION: No acute abnormality is displayed.
--- NOTE | 2024-07-20 12:32 | EDPHYS ---
Physician Documentation [facility] Name: Joy Soler Age: 64 yrs Sex: Female : 1960 Arrival Date: 07/20/2024 Time: 09:12 Bed 4 Private MD: ED Physician Myles Pineda HPI: 07/20 09:19 This 64 yrs old Black Female presents to ER via Unassigned with complaints of Chest ms3 Pain. 09:19 64-year-old female with past medical history of coronary artery disease, hypertension, ms3 hyperlipidemia, anxiety presents to the emergency department for chest pain that began yesterday. Patient states the pain is an 8/10 described as stabbing and radiating to her back. Patient endorses shortness of breath. Patient denies nausea or vomiting. Historical: - Allergies: 09:21 No Known Allergies; ss - Home Meds: 09:30 Plavix 75 mg Oral tablet daily [Active]; aa5 - PMHx: 09:21 Hypertension; high cholesterol; ss - PSHx: 09:30 Coronary Stent placement; aa5 - Immunization history:: Client reports having NOT received the Covid vaccine. - Infectious Disease History:: Denies. - Social history:: Smoking status: Patient reports the use of cigarette tobacco products, smokes one-half pack cigarettes per day. ROS: 09:19 Constitutional: Negative for fever, and chills. ms3 09:19 Respiratory: Negative for shortness of breath, cough, wheezing, and pleuritic chest pain, Abdomen/GI: Negative for abdominal pain, nausea, vomiting, diarrhea, and constipation, Skin: Negative for injury, rash, and discoloration, 09:19 Cardiovascular: Positive for chest pain, 09:19 Psych: Positive for anxiety, Exam: 09:19 Constitutional: This is a well developed, well nourished patient who is awake, alert, ms3 and in no acute distress. Chest/axilla: Normal chest wall appearance and motion. Nontender with no deformity. Cardiovascular: Regular rate and rhythm with a normal S1 and S2. No gallops, murmurs, or rubs. Normal PMI, no JVD. No pulse deficits. Respiratory: Lungs have equal breath sounds bilaterally, clear to auscultation and percussion. No rales, rhonchi or wheezes noted. No increased work of breathing, no retractions or nasal flaring. Abdomen/GI: Soft, non-tender, with normal bowel sounds. No distension or tympany. No guarding or rebound. No evidence of tenderness throughout. Skin: Warm, dry with normal turgor. Normal color with no rashes, no lesions, and no evidence of cellulitis. MS/ Extremity: Pulses equal, no cyanosis. Neurovascular intact. Full, normal range of motion. 09:19 ECG was reviewed by the Attending Physician. Vital Signs: 09:20 BP 161 / 107; Pulse 84; Resp 20; Temp 98.9(TE); Pulse Ox 99% on R/A; Weight 58.97 kg; ss Height 5 ft. 6 in. ; Pain 8/10; 09:30 BP 133 / 97; Pulse 65; Resp 17; Pulse Ox 98% on R/A; rs5 09:50 BP 130 / 88; Pulse 60; Resp 18 S; Pulse Ox 98% on R/A; Pain 4/10; aa5 10:40 BP 132 / 87; Pulse 70; Resp 18 S; Pulse Ox 99% on R/A; aa5 11:47 BP 130 / 87; Pulse 65; Resp 19 S; Pulse Ox 99% on R/A; aa5 12:30 BP 135 / 84; Pulse 71; Resp 17; Pulse Ox 99% on R/A; rs5 09:20 Body Mass Index 20.98 (58.97 kg, 167.64 cm) ss 09:20 Pain Scale: Adult ss 09:50 Pain Scale: Adult aa5 MDM: 09:17 Patient medically screened. ms3 09:19 Differential diagnosis: abnormal EKG, acute myocardial infarction, anxiety, coronary ms3 artery disease. 13:38 HEART Score: History: Slightly Suspicious (0), ECG: Normal (0), Age: > 45 and < 65 ms3 years (1), Risk Factors: 1 or 2 risk factors (1), Troponin: < or = 1 x Normal Limit (0), Total Score = 2. Data reviewed: vital signs, nurses notes, lab test result(s), EKG, radiologic studies, and as a result, I will discharge patient. Consideration of Admission/Observation Escalation of care including admission/observation considered. Discussed case with Dr. Morillo and patient to follow-up with him in clinic tomorrow at 9 AM. Management of patient was discussed with the following: Price Changer: Dr. Morillopatient to follow-up in clinic at 9 AM tomorrow. Independent interpretation of the following test(s) in the Emergency Department EKG: See my EKG interpretation above X-Ray: My interpretation is Chest x-ray image reviewed by me does not reveal pneumonia. Care significantly affected by the following chronic conditions: Hypertension. Counseling: I had a detailed discussion with the patient and/or guardian regarding the historical points, exam findings, and any diagnostic results supporting the discharge/admit diagnosis, lab results, radiology results, the need for outpatient follow up, to return to the emergency department if symptoms worsen or persist or if there are any questions or concerns that arise at home. Special discussion: Based on the patient's history, exam, and Dx evaluation, there is no indication for emergent intervention or inpatient Tx. It is understood by the patient/guardian that if the Sx's persist or worsen they need to return immediately for re-evaluation. ED course: Discussed conversation with Dr. Morillo with patient. Patient agrees to follow-up tomorrow at 9 AM in his clinic. On reevaluation patient symptoms improved, patient is alert and oriented x 4, no apparent distress, nontoxic-appearing, ambulatory in the emergency department. Patient to follow-up with Dr. Morillo as discussed. All questions were answered. Return precautions discussed include worsening symptoms, or any other concerns. 07/20 09:26 Order name: Basic Metabolic Panel; Complete Time: 10:44 ms3 07/20 09:26 Order name: CBC with Diff; Complete Time: 10:44 ms3 07/20 09:26 Order name: Troponin HS; Complete Time: 10:44 ms3 07/20 11:28 Order name: Troponin High Sensitivity; Complete Time: 12:21 ms3 07/20 09:26 Order name: XRAY Chest (1 view); Complete Time: 10:53 ms3 07/20 09:26 Order name: EKG; Complete Time: 09:26 ms3 07/20 09:26 Order name: Cardiac monitoring; Complete Time: 09:26 ms3 07/20 09:26 Order name: EKG - Nurse/Tech; Complete Time: 09:26 ms3 07/20 09:26 Order name: IV Saline Lock; Complete Time: 09:26 ms3 07/20 09:26 Order name: Labs collected and sent; Complete Time: 09: ms3 07/20 09:26 Order name: O2 Per Protocol; Complete Time: : ms3 07/20 09:26 Order name: O2 Sat Monitoring; Complete Time: : ms3 07/20 11:37 Order name: PO challenge; Complete Time: 11:45 ms3 EC:19 Rate is 66 beats/min. Rhythm is regular. QRS Repton is Normal. ID interval is normal. QRS ms3 interval is normal. Clinical impression: NSR w/ Non-specific ST/T Changes. Interpreted by me. Reviewed by me. Administered Medications: 09:37 Not Given (Pt took requested to take her home Nitro instead, MD aware. ): aa5 nitroglycerin0.4 mg Sublingual once Disposition Summary: 07/20/24 12:31 Discharge Ordered Notes: Location: Home ms3 Condition: Stable ms3 Diagnosis - Chest pain, unspecified ms3 Followup: ms3 - With: Keaton Morillo MD - When: 07/21/2024 - Reason: Discharge Instructions: - Discharge Summary Sheet ms3 - Nonspecific Chest Pain, Adult ms3 Forms: - Medication Reconciliation Form ms3 - Antibiotic Education ms3 - Prescription Opioid Use ms3 - Patient Portal Instructions ms3 - Leadership Thank You Letter ms3 Signatures: Dispatcher [employer] Benji Rossi MD MD rn Calderon, Audri, RN RN aa5 Angelica Saeed RN RN Myles Montano DO DO ms3 Corrections: (The following items were deleted from the chart) 09:20 09:19 The history from the nurse's notes was reviewed and I agree with what is ms3 documented. ms3
--- NOTE | 2024-07-20 12:32 | ER ---
Nurse's Notes [facility] Name: Joy Soler Age: 64 yrs Sex: Female : 1960 Arrival Date: 07/20/2024 Time: 09:12 Bed 4 Private MD: Diagnosis: Chest pain, unspecified Presentation: 07/20 09:20 Chief complaint: Patient states: Chest pain that radiates to back that began yesterday ss and is worse today. Pt also reports anxiety. Coronavirus screen: Client denies travel out of the [place] in the last 14 days. Ebola Screen: Patient denies exposure to infectious person. Patient denies travel to an Ebola-affected area in the 21 days before illness onset. Initial Sepsis Screen: Does the patient meet any 2 criteria? No. Patient's initial sepsis screen is negative. Does the patient have a suspected source of infection? No. Patient's initial sepsis screen is negative. Risk Assessment: Do you want to hurt yourself or someone else? Patient reports no desire to harm self or others. Onset of symptoms was July 19, 2024. 09:20 Method Of Arrival: Ambulatory ss 09:20 Acuity: LEIGH 2 ss Historical: - Allergies: 09:21 No Known Allergies; ss - Home Meds: 09:30 Plavix 75 mg Oral tablet daily [Active]; aa5 - PMHx: 09:21 Hypertension; high cholesterol; ss - PSHx: 09:30 Coronary Stent placement; aa5 - Immunization history:: Client reports having NOT received the Covid vaccine. - Infectious Disease History:: Denies. - Social history:: Smoking status: Patient reports the use of cigarette tobacco products, smokes one-half pack cigarettes per day. Screenin:20 [facility] ED Fall Risk Assessment (Adult) History of falling in the last 3 months, rs5 including since admission No falls in past 3 months (0 pts) Confusion or Disorientation No (0 pts) Intoxicated or Sedated No (0 pts) Impaired Gait No (0 pts) Mobility Assist Device Used No (0 pt) Altered Elimination No (0 pt) Score/Fall Risk Level 0 - 2 = Low Risk Oriented to surroundings, Maintained a safe environment. Abuse screen: Denies threats or abuse. Nutritional screening: No deficits noted. Tuberculosis screening: No symptoms or risk factors identified. Assessment: 09:20 General: Appears uncomfortable, Behavior is cooperative. Pain: Complains of pain in rs5 chest. Pain: Pain radiates to back Pain currently is 7 out of 10 on a pain scale. Quality of pain is described as aching, Pain began 1 day ago. Is continuous. Neuro: Level of Consciousness is awake, alert, obeys commands, Oriented to person, place, time, situation. Cardiovascular: Patient's skin is warm and dry. Respiratory: Airway is patent Respiratory effort is even, unlabored, Respiratory pattern is regular, symmetrical. GI: Abdomen is round non-distended, Abd is soft and non tender X 4 quads. : No signs and/or symptoms were reported regarding the genitourinary system. EENT: No signs and/or symptoms were reported regarding the EENT system. Derm: Skin is intact, Skin is dry, Skin is normal, Skin temperature is warm. Musculoskeletal: Range of motion: intact in all extremities. 09:50 Reassessment: Patient states feeling better. Patient states symptoms have improved. aa5 General: Appears comfortable. Pain: Pain currently is 4 out of 10 on a pain scale. Neuro: Level of Consciousness is awake, alert, obeys commands, Oriented to person, place, time, situation. Respiratory: Airway is patent Respiratory effort is even, unlabored, Respiratory pattern is regular, symmetrical. Derm: Skin is dry, Skin is normal, Skin temperature is warm. 10:51 Reassessment: Patient and/or family updated on plan of care and expected duration. Pain rs5 level reassessed. Patient is alert, oriented x 3, equal unlabored respirations, skin warm/dry/pink. 11:47 Reassessment: Pt stated she wants to go home at this time. Explained to pt need to aa5 repeat Troponin level, pt agrees with blood draw at this time. .. 11:47 Neuro: Level of Consciousness is awake, alert, obeys commands, Oriented to person, aa5 place, time, situation. Respiratory: Airway is patent Respiratory effort is even, unlabored, Respiratory pattern is regular, symmetrical. Derm: Skin is dry, Skin is normal, Skin temperature is warm. 12:33 Reassessment: Patient and/or family updated on plan of care and expected duration. Pain rs5 level reassessed. Patient is alert, oriented x 3, equal unlabored respirations, skin warm/dry/pink. Vital Signs: 09:20 BP 161 / 107; Pulse 84; Resp 20; Temp 98.9(TE); Pulse Ox 99% on R/A; Weight 58.97 kg; ss Height 5 ft. 6 in. ; Pain 8/10; 09:30 BP 133 / 97; Pulse 65; Resp 17; Pulse Ox 98% on R/A; rs5 09:50 BP 130 / 88; Pulse 60; Resp 18 S; Pulse Ox 98% on R/A; Pain 4/10; aa5 10:40 BP 132 / 87; Pulse 70; Resp 18 S; Pulse Ox 99% on R/A; aa5 11:47 BP 130 / 87; Pulse 65; Resp 19 S; Pulse Ox 99% on R/A; aa5 12:30 BP 135 / 84; Pulse 71; Resp 17; Pulse Ox 99% on R/A; rs5 09:20 Body Mass Index 20.98 (58.97 kg, 167.64 cm) ss 09:20 Pain Scale: Adult ss 09:50 Pain Scale: Adult aa5 ED Course: 09:17 Patient arrived in ED. im 09:17 Myles Pineda DO is Attending Physician. ms3 09:20 Patient has correct armband on for positive identification. Placed in gown. Bed in low rs5 position. Call light in reach. Side rails up X2. Client placed on continuous cardiac and pulse oximetry monitoring. NIBP monitoring applied. desk monitor on. Pulse ox on. 09:20 No provider procedures requiring assistance completed. Patient maintains SpO2 rs5 saturation greater than 95% on room air. 09:21 Triage completed. ss 09:21 Arm band placed on right wrist. ss 09:28 Justin Ayala, RN is Primary Nurse. rs5 09:30 Initial lab(s) drawn, by me, sent to lab. Inserted saline lock: 22 gauge in left aa5 antecubital area, using aseptic technique. Blood collected. Flushed with 10 mL NS. 10:43 XRAY Chest (1 view) In Process Unspecified. EDMS 11:40 IV discontinued, intact, bleeding controlled, No redness/swelling at site. Pressure aa5 dressing applied, Pt was already taking IV out, helped pt removed IV. See nursing notes. 11:50 Repeat lab(s) drawn. by me, sent to lab. aa5 12:30 Keaton Morillo MD is Referral Physician. ms3 12:37 Provided Education on: discharge instructions . rs5 Administered Medications: :37 Not Given (Pt took requested to take her home Nitro instead, MD aware. ): aa5 nitroglycerin0.4 mg Sublingual once Medication: 09:30 VIS not applicable for this client. rs5 Outcome: 12:31 Discharge ordered by MD. ms3 12:38 Discharged to home ambulatory, rs5 12:38 Condition: stable rs5 12:38 Discharge instructions given to patient, family, Instructed on discharge instructions, follow up and referral plans. Demonstrated understanding of instructions, follow-up care, 12:39 Patient left the ED. rs5 Signatures: Dispatcher [employer] EDMS Lata Marvin, RN RN aa5 Angelica Saeed RN RN Myles Pineda DO DO ms3 Justin Ayala RN RN rs5 Iva Sullivan Corrections: (The following items were deleted from the chart) 09:20 09:19 The history from the nurse's notes was reviewed and I agree with what is ms3 documented. ms3 12:19 11:47 Reassessment: Explained to pt need to repeat Troponin level, pt agrees with blood aa5 draw at this time. .. aa5
[2024-07-21 01:06] VITALS: TEMP 98.9
[2024-07-21 01:09] VITALS: O2SAT 99
[2024-07-21 01:11] VITALS: BP 130/87
--- NOTE | 2024-07-21 16:37 | EKG ---
Test Date: 2024-07-20 Test Time: 09:19:48 Filtration Plant Operator: JOSE MEASUREMENT RESULTS: Intervals: Rate: 66 KS: 152 QRSD: 82 QT: 404 QTc: 423 [place]: P: 68 KS: 152 QRS: 0 T: 54 INTERPRETIVE STATEMENTS: Sinus rhythm with premature atrial complexes Nonspecific ST and T wave abnormality Abnormal ECG Compared to ECG 11/24/2023 06:01:50 Atrial premature complex(es) now present ST (T wave) deviation now present Electronically Signed On 07-21-24 16:33:05 CDT by Keaton Morillo
== END 2024-07-20 12:39 | disposition home or self-care (01) ==
LOC: ER 09:12
DX: R07.9 Chest pain, unspecified (principal); I10 Essential (primary) hypertension; E78.00 Pure hypercholesterolemia, unspecified; F17.210 Nicotine dependence, cigarettes, uncomplicated; Z79.01 Long term (current) use of anticoagulants
CPT/HCPCS: 36415; 71045; 80048; 84484; 85025; 93005; 99284

== ENCOUNTER 2025-03-06 07:31 | Observation (INO) | payer OTHER ==
--- OUTSIDE RECORDS SUMMARY | 2025-03-06 07:37 | XMS REPORT | Continuity of Care Document ---
Author Name Unknown Address [address] [facility] [address] [place] [address] [facility] [place] Address [address] [facility] [address] [place] [address] Care Team Providers Care Trust Operations Assistant Name Role Phone ALEE DALILA [place] Primary Care Physician UnavailBEN Rossi Attending Clinician Unavailable Shakeel Neri MD Attending Clinician [phone] Suni Valencia MD Attending Clinician [phone] SUNI VALENCIA Attending Clinician Unavailabl e [id number] Attending Clinician Unavailable LISA RICHARDSON Attending Clinician Unavailable MARICARMEN JONES Attending Clinician Unava ilable [id number] Attending Clinician Unavailable ISABELLA DONALDSON Attending Clinician Unavailable LATOYA GARDUNO Attending Clinician Unavail able KARLEY NAVARRO Attending Clinician Unavailabl e MICHELLE MERCADO Attending Clinician UnaTaylor Metzger Attending Clinician [phone] TAYLOR RODRIGUEZ Attending Clinician Unavailable Suni Valencia MD Admitting Clinician [phone] SUNI VALENCIA Admitting Clinician Unavailabl e Payers Payer Name Policy Type Policy Number Effective Date Expirati on Date Source GOLD 4 ADVANCED 9 [id number] 2024 00:00:00 Problems Condition Name Condition Details Condition Category Status Onset Date Resolution Date Last Treatment Date Treating Clinician Comments Source Chest pain, unspecifie d type Chest pain, unspecifie d type Disease Active 10-20 00:00: 00 [facility] Obesity (BMI 30-39.9) Obesity (BMI 30-39.9) Disease Active 10-20 00:00: 00 [facility] Coronary atheroscle rosis Coronary atheroscle rosis Disease Active 10-20 00:00: 00 [facility] History of heart artery stent History of heart artery stent Disease Active 10-20 00:00: 00 [facility] Coronary artery disease involving [place] coronary artery of [place] heart with angina pectoris Coronary artery disease involving [place] coronary artery of [place] heart with angina pectoris Disease Active 10-20 00:00: 00 [facility] Essential hypertensi on Essential hypertensi on Disease Active 10-20 00:00: 00 [facility] Dyslipidem ia Dyslipidem ia Disease Active 10-20 00:00: 00 [facility] Well adult exam Well adult exam Disease Active 2023-10 00:00: 00 Kathleen paredes Immunodefi ciency due to conditions classified elsewhere ([facility]) Immunodefi ciency due to conditions classified elsewhere ([facility]) Disease Active 2023-10 00:00: 00 Kathleen paredes Class 1 obesity due to excess calories with serious comorbidit y and body mass index (BMI) of 32.0 to 32.9 in adult Class 1 obesity due to excess calories with serious comorbidit y and body mass index (BMI) of 32.0 to 32.9 in adult Disease Active 2023-10 2 00:00: 00 [facility] 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 -03 00:00: 00 [facility] Anxiety Anxiety Disease Active 8-04 00:00: 00 Kathleen Seybold - Externa l Bipolar 1 disorder (multi HCC) Bipolar 1 disorder (multi HCC) Disease Active 8 00:00: 00 Kathleen Mckinneyold - Externa l Chronic hepatitis C without hepatic coma (multi HCC) Chronic hepatitis C without hepatic coma (multi HCC) Disease Active 8-04 00:00: 00 Kathleen Mckinneyold - Externa l Mild intermitte nt asthma without complicati on ([facility]) Mild intermitte nt asthma without complicati on ([facility]) Disease Active 8 00:00: 00 Kathleen Mckinneyold - Externa l Prediabete s Prediabete s Disease Active 8 00:00: 00 [facility] Hepatitis C antibody test positive Hepatitis C antibody test positive Disease Active 04-16 00:00: 00 Kathleen Mckinneyold - Externa l Chronic hepatitis C without hepatic coma Chronic hepatitis C without hepatic coma Disease Active 04-16 00:00: 00 Kathleen Adrian - Externa l 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 back pain with left-sided sciatica Disease Active 04-16 00:00: 00 Kathleen Mckinneyold - Externa l Rheumatoid arthritis (multi HCC) Rheumatoid arthritis (multi HCC) Disease Active 04-16 00:00: 00 Kathleen Mckinneyold - Externa l Allergies, Adverse Reactions, Alerts Allergy Name Allergy Type Status Severity Reaction(s) Onset Date Inactive Date Treating Clinician Comments Source [place] - Intraven ous Propensi ty to adverse reaction to drug Active 04-15 00:00: 00 Codeine Propensi ty to adverse reaction s Active 04-15 00:00: 00 Kathleen Mckinneyold - Externa l NO KNOWN ALLERGIE S Drug Class Active [facility] Social History Social Habit Start Date Stop Date Quantity Comments Source History of tobacco use 1974-10-18 00:00:00 Passive smoker [facility] Exposure to SARS-CoV-2 (event) Not sure [facility] Sexual orientation [facility] Gender identity Cherri Adrian - External ASSERTION Not Kathleen Adrian - External Alcoholic beverage intake 2024-12-25 00:00:00 2024-12-25 00:00:00 Ex-drinker (finding) Kathleen Adrian - External Cigarettes smoked current (pack per day) - Reported 2024-10-20 00:00:00 2024-10-20 00:00:00 [facility] Cigarette pack-years 2024-10-20 00:00:00 2024-10-20 00:00:00 [facility] History of Social function 2024-10-20 00:00:00 2024-10-20 00:00:00 [facility] Education 2024-10-20 00:00:00 2024-10-20 00:00:00 14 [facility] Tobacco use and exposure 2024-09-19 00:00:00 2024-09-19 00:00:00 Smokeless tobacco non-user Kathleen Adrian - External Alcohol intake 2023-12-02 00:00:00 2023-12-02 00:00:00 Ex-drinker (finding) Kathleen Adrian - External Tobacco Comment 2023-03-23 00:00:00 2023-03-23 00:00:00 Restarted smoking - 1/4 pack a day. Kathleen Adrian - External Alcohol Comment 2023-01-22 00:00:00 2023-01-22 00:00:00 Alcoholic stopped 6 years ago Kathleen Adrian - External Sex 2022-11-05 13:09:27 2022-11-05 13:09:27 Female (finding) Kathleen Adrian - External Sex assigned at 1960 00:00:00 1960 00:00:00 F Kathleen Adrian - External Smoking Status Start Date Stop Date Source Unknown if ever smoked [facility] Smokes tobacco daily 2024-09-19 00:00:00 Kathleen Adrian - External Ex-smoker 2024-06-20 00:00:00 2024-06-20 00:00:00 Gabriel Adrian - External Medications Ordered Medication Name Filled Medication Name Start Date Stop Date Current Medication? Ordering Clinician Indication Dosage Frequency Signature (SIG) Comments Components Source Amoxicillin -Pot Clavulanate 875-125 MG oral Tablet 12-25 00:00: 00 Yes [id number] 1{tbl} Q.5D Take 1 tablet by mouth 2 times daily. Kathleen paredes Benzonatate (Tessalon Perles) 100 MG oral Capsule 3-10 00:00: 00 Yes [id number] 100mg [id number] 3D Take 1 capsule (100 mg total) by mouth 3 times daily as needed for cough. Kathleen paredes Alprazolam 1 MG oral Tablet 2- 00:00: 00 Yes [id number] 1mg Q.5D TAKE 1 TABLET BY MOUTH 2 TIMES DAILY Kathleen paredes Amlodipine Besylate (NORVASC) 5 MG oral Tablet 11-01 00:00: 00 Yes [id number] 5mg QD Take 1 tablet (5 mg total) by mouth daily. Kathleen paredes hydroCHLORO thiazide 12.5 MG oral Tablet 11-01 00:00: 00 Yes [id number] 12.5mg QD Take 1 tablet (12.5 mg total) by mouth daily. Kathleen paredes Atorvastati n Calcium 40 MG oral Tablet 11-01 00:00: 00 Yes [id number] 40mg Take 1 tablet (40 mg total) by mouth at bedtime. Kathleen paredes Clopidogrel Bisulfate (PLAVIX) 75 MG oral Tablet 11-01 00:00: 00 12-25 00:00 :00 No [id number] 75mg QD Take 1 tablet (75 mg total) by mouth daily. Kathleen paredes amLODIPine (NORVASC) tablet 5 mg 10-21 15:00: 00 10-20 20:47 :57 No 5mg [facility] ALPRAZolam (XANAX) tablet 1 mg 10-21 02:00: 00 10-20 20:47 :57 No 1mg [facility] enoxaparin (LOVENOX) injection 40 mg 10-20 23:00: 00 10-20 20:47 :57 No 40mg 40 mg, Subcutaneo us, DAILY, First dose on Wed10/20/24 at 1700, Until Discontinu ed, Routine [facility] clopidogreL (PLAVIX) 75 mg tablet 75 mg 10-20 15:00: 00 10-20 20:47 :57 No 75mg 75 mg, Oral, DAILY, First dose on Wed10/20/24 at 0900, Until Discontinu ed, Routine, managing member approving Restricted medication : SUNI VALENCIA [facility] aspirin chewable tablet 81 mg 10-20 15:00: 00 10-20 20:47 :57 No 81mg 81 mg, Oral, DAILY, First dose on Wed10/20/24 at 0900, Until Discontinu ed, Routine [facility] clopidogreL 75 mg tablet 10-20 14:47: 57 Yes 75mg Take 1 tablet by mouth in the morning. [facility] aspirin 81 mg chewable tablet 10-20 14:47: 57 Yes 81mg Take 1 tablet by mouth in the morning. [facility] amLODIPine 5 mg tablet 10-20 14:47: 57 Yes 5mg Take 1 tablet by mouth in the morning. [facility] hydroCHLORO thiazide 12.5 mg capsule 10-20 14:47: 57 Yes 12.5mg Take 1 capsule by mouth in the morning. [facility] ALPRAZolam 1 mg tablet 10-20 14:47: 57 Yes 1mg Take 1 tablet by mouth in the morning and 1 tablet in the evening. [facility] albuterol-i pratropium 20-100 mcg/actuati on inhaler 10-20 14:47: 57 Yes 1{puff} Inhale 1 Puff as needed for Wheezing or Shortness of Breath. [facility] atorvastati n 40 mg tablet 10-20 14:47: 57 Yes 40mg Take 1 tablet by mouth at bedtime. [facility] metoprolol tartrate (LOPRESSOR) tablet 12.5 mg 10-20 14:00: 00 Yes 12.5mg 12.5 mg, Oral, BID, First dose on Wed10/20/24 at 0800, Until Discontinu ed, Routine [facility] iopamidol (ISOVUE 370-500 mL) injection 80 mL 10-20 13:15: 00 10-20 13:15 :00 No [id number] 80mL 80 mL, Intravenou s, ONCE, 1 dose, On Wed10/20/24 at 0715, Routine [facility] NaCl 0.9% (NS) IV infusion 1,000 mL 10-20 13:00: 00 10-20 20:47 :57 No 1000mL at 50 mL/hr, IV Infusion, CONTINUOUS , Starting on Wed10/20/24 at 0700, Until Wed10/20/24 at 1447, Routine [facility] ondansetron (ZOFRAN (PF)) injection 4 mg 10-20 12:51: 56 10-20 20:47 :57 No 4mg 4 mg, Slow IV Push, Q6HPRN, Starting on Wed10/20/24 at 0651, Until Wed10/20/24 at 1447, Administer over 2-5 Minutes, 2 mL [facility] morphine (2 mg/mL) injection 2 mg 10-20 12:51: 52 10-20 20:47 :57 No 2mg 2 mg, Slow IV Push, Q6HPRN, Starting on Wed10/20/24 at 0651, Until Wed10/20/24 at 1447, Routine, Pain (scale 7-10) [facility] -acetaminop hen (NORCO 5) tablet 1 tablet 10-20 12:51: 47 10-20 20:47 :57 No 1{tbl} 1 tablet, Oral, Q6HPRN, Starting on Wed10/20/24 at 0651, Until Wed10/20/24 at 1447, Routine, Pain (scale 4-6) [facility] acetaminoph en (TYLENOL) tablet 650 mg 10-20 12:51: 45 10-20 20:47 :57 No 650mg 650 mg, Oral, Q6HPRN, Starting on Wed10/20/24 at 0651, Until Wed10/20/24 at 1447, Routine, Pain (scale 1-3) [facility] famotidine (PEPCID (PF)) injection 20 mg 10-20 12:30: 00 10-20 12:36 :00 No 20mg 20 mg, Slow IV Push, ONCE, 1 dose, On Wed10/20/24 at 0630, EKTA [facility] aspirin tablet 325 mg 10-20 12:00: 00 10-20 11:56 :00 No 325mg 325 mg, Oral, ONCE, 1 dose, On Wed10/20/24 at 0600, STAT [facility] LORazepam (ATIVAN) injection 0.5 mg 10-20 12:00: 00 10-20 11:56 :00 No .5mg 0.5 mg, Slow IV Push, ONCE, 1 dose, On Wed10/20/24 at 0600, STAT [facility] metoprolol tartrate 25 mg tablet 10-20 00:00: 00 11-20 05:59 :00 No [id number] 12.5mg Take 0.5 tablets by mouth in the morning and 0.5 tablets in the evening. Do all this for 30 days. [facility] Albuterol HFA 108 (90 Base) MCG/ACT IN AERS 2023-10 00:00: 00 Yes [id number] 2{puff} Q.25D Inhale 2 puffs into the lungs every 6 hours as needed for wheezing or shortness of breath. Kathleen paredes Atorvastati n Calcium 40 MG oral Tablet 2023-10 00:00: 00 Yes [id number] 40mg TAKE 1 TABLET BY MOUTH EVERYDAY AT BEDTIME Kathleen paredes Alprazolam 1 MG oral Tablet 2023-10 00:00: 00 Yes [id number] 1mg Q.5D Take 1 tablet (1 mg total) by mouth 2 times daily. Kathleen paredes Clopidogrel Bisulfate (PLAVIX) 75 MG oral Tablet 2023-10 00:00: 00 Yes [id number] 75mg QD TAKE 1 TABLET BY MOUTH EVERY DAY Kathleen paredes HYDROcodone -Acetaminop hen (NORCO) 5-325 MG oral Tablet 06-20 14:27: 02 06-20 00:00 :00 No 1{tbl} Q.25D Take 1 tablet by mouth every 6 hours as needed for pain. Kathleen paredes Alprazolam 1 MG oral Tablet 06-20 00:00: 00 Yes [id number] 1mg Q.5D Take 1 tablet (1 mg total) by mouth 2 times daily. Kathleen paredes Tizanidine HCl 2 MG oral Tablet 06-20 00:00: 00 09-19 00:00 :00 No [id number] 2mg QD Take 1 tablet (2 mg total) by mouth nightly as needed for muscle spasms. Kathleen paredes Clopidogrel Bisulfate (PLAVIX) 75 MG oral Tablet 05-29 00:00: 00 Yes [id number] 75mg QD take 1 tablet by mouth every day Kathleen paredes Alprazolam 1 MG oral Tablet 05-29 00:00: 00 06-20 00:00 :00 No [id number] 1mg Q.5D take 1 tablet by mouth 2 times daily Kathleen paredes Amlodipine Besylate (NORVASC) 5 MG oral Tablet 01-26 00:00: 00 Yes [id number] 5mg QD Take 1 tablet (5 mg total) by mouth daily. Kathleen paredes hydroCHLORO thiazide 12.5 MG oral Tablet -11 00:00: 00 Yes [id number] 12.5mg QD Take 1 tablet (12.5 mg total) by mouth daily. Ktahleen paredes Atorvastati n Calcium 40 MG oral Tablet 2-15 00:00: 00 Yes [id number] 40mg QD Take 1 tablet (40 mg total) by mouth nightly. Kathleen paredes Clopidogrel Bisulfate (PLAVIX) 75 MG oral Tablet -15 00:00: 00 12-02 00:00 :00 No [id number] 75mg Take 1 tablet (75 mg total) by mouth daily. Kathleen paredes Alprazolam 1 MG oral Tablet -15 00:00: 00 12-02 00:00 :00 No [id number] 1mg Take 1 tablet (1 mg total) by mouth 2 times daily. Kathleen paredes hydroCHLORO thiazide 12.5 MG oral Tablet 2-08 00:00: 00 Yes [id number] 12.5mg Take 1 tablet (12.5 mg total) by mouth daily. Kathleen paredes Aspirin Low Dose 81 MG oral Tablet Delayed Response 2- 00:00: 00 09-19 00:00 :00 No 81mg QD Take 1 tablet (81 mg total) by mouth daily. Kathleen paredes Clopidogrel Bisulfate (PLAVIX) 75 MG oral Tablet 2-07 00:00: 00 12-02 00:00 :00 No 75mg Take 1 tablet (75 mg total) by mouth daily. Kathleen paredes Aspirin (Aspirin Low Dose) 81 MG oral Tablet Delayed Response 2-06 00:00: 00 Yes 81mg 1 tablet (81 mg total). Kathleen paredes Atorvastati n Calcium 10 MG oral Tablet 2-05 00:00: 00 12-02 00:00 :00 No [id number] 10mg Take 1 tablet (10 mg total) by mouth nightly. Kathleen paredes Alprazolam 1 MG oral Tablet 2022-10 2-13 00:00: 00 12-02 00:00 :00 No [id number] 1mg TAKE 1 TABLET BY MOUTH TWICE A DAY Kathleen paredes HYDROcodone -Acetaminop hen (NORCO) 5-325 MG oral Tablet 2022-10 1-03 09:15: 14 Yes 1{tbl} Q.25D Take 1 tablet by mouth every 6 hours as needed for pain. Kathleen paredes HYDROcodone -Acetaminop hen (NORCO) 5-325 MG oral Tablet 2022-10 07:42: 11 08-20 00:00 :00 No 1{tbl} Q.25D Take 1 tablet by mouth every 6 hours as needed for pain. Kathleen paredes Amlodipine Besylate (NORVASC) 5 MG oral Tablet 2022-10 00:00: 00 Yes [id number] 5mg Take 1 tablet (5 mg total) by mouth daily. Kathleen paredes Alprazolam 1 MG oral Tablet 2022-10 0- 00:00: 00 Yes [id number] 1mg TAKE 1 TABLET BY MOUTH 2 [...] 07-07 00:00: 00 08-20 00:00 :00 No [id number] Instructio ns provided to patient. Follow instructio ns provided by provider.. Kathleen paredes Alprazolam 1 MG oral Tablet 8- 00:00: 00 Yes [id number] 1mg Take 1 tablet (1 mg total) [...] MG oral Tablet 05-21 00:00: 00 Yes [id number] 12.5mg Take 1 tablet (12.5 mg total) by mouth daily Kathleen paredes Atorvastati n Calcium (Lipitor) 10 MG oral Tablet 05-21 00:00: 00 Yes [id number] 10mg Take 1 tablet (10 mg total) by mouth nightly Kathleen paredes Albuterol HFA 108 (90 Base) MCG/ACT IN AERS 05-21 00:00: 00 Yes [id number] 2{puff} Q.25D Inhale 2 puffs into the lungs every 6 hours as needed for wheezing or shortness of breath Kathleen paredes Amlodipine Besylate (NORVASC) 5 MG oral Tablet 05-21 00:00: 00 08-20 00:00 :00 No [id number] 5mg Take 1 tablet (5 mg total) by mouth daily Kathleen paredes Gabapentin 300 MG oral Capsule 05-21 00:00: 00 07-07 00:00 :00 No [id number] 300mg Take 1 capsule (300 mg total) by mouth 2 times daily Kathleen paredes Tizanidine HCl 2 MG oral Tablet 05-12 00:00: 00 05-21 00:00 :00 No [id number] 2mg QD TAKE 1 TABLET BY MOUTH [...] MG oral Capsule 04-16 00:00: 00 Yes [id number] 300mg Take 1 capsule (300 mg total) by mouth 3 times daily Kathleen paredes Meloxicam 15 MG oral Tablet 04-16 00:00: 00 Yes [id number] 15mg Take 1 tablet (15 mg total) by mouth daily Kathleen paredes Tizanidine HCl 2 MG oral Tablet 04-16 00:00: 00 Yes [id number] 2mg QD Take 1 tablet (2 mg total) by mouth nightly as needed for muscle spasms Kathleen paredes Nicotine 21-14-7 MG/24HR transdermal Kit 04-09 00:00: 00 Yes [id number] Use per package directions Kathleen paredes Atorvastati n Calcium (Lipitor) 10 MG oral Tablet 04-02 00:00: 00 Yes [id number] 10mg Take 1 tablet (10 mg total) [...] Kathleen paredes Nicotine 21-14-7 MG/24HR transdermal Kit 4 00:00: 00 Yes [id number] Use per package directions Kathleen paredes Meloxicam 7.5 MG oral Tablet 01-25 00:00: 00 04-16 00:00 :00 No [id number] 7.5mg Take 1 tablet (7.5 mg total) by mouth daily Kathleen paredes Amlodipine Besylate (NORVASC) 5 MG oral Tablet 17 00:00: 00 05-21 00:00 :00 No 5mg [...] IN THE MORNING 04-15 00:00: 00 No sumatriptan 50 mg tablet 2020-10 2-10 00:00: 00 No 1mg diclofenac sodium 75 mg tablet,sushil yed release 2020-10 2-10 00:00: 00 No 1mg sumatriptan 50 mg tablet 2020-10 0- 00:00: 00 No 1mg diclofenac sodium 75 mg tablet,sushil yed release 2020-10 0-23 00:00: 00 No 1mg diclofenac [...] HFA 90 mcg/actuati on aerosol inhaler 0 6- 00:00: 00 No 12mcg/a ctuatio n diclofenac sodium 75 mg tablet,sushil yed release 0 6- 00:00: 00 No 1mg methotrexat e sodium 2.5 mg tablet 0 6- 00:00: 00 No 3mg indomethaci n 50 [...] No 1mg indomethaci n 50 mg capsule 2019-0 9-16 00:00: 00 No 1mg methocarbam ol 750 mg tablet 2019-0 9-15 00:00: 00 No 1mg indomethaci n 50 mg capsule 2019-0 9-15 00:00: 00 No 1mg indomethaci n 50 mg capsule 2019-0 7-28 00:00: 00 No 1mg simvastatin 20 mg tablet 2019-0 6-09 00:00: 00 No 1mg indomethaci n 50 mg capsule 2019-0 6-09 00:00: 00 No 1mg prednisone 20 mg tablet 2020-0 5-05 00:00: 00 No 1mg methocarbam ol 750 mg tablet 5-05 00:00: 00 No 1mg gabapentin 400 mg capsule 5-05 00:00: 00 No 1mg diclofenac sodium 75 mg tablet,sushil yed release 0 3-31 00:00: 00 No 1mg diclofenac sodium 75 mg tablet,sushil yed release 0 2-25 00:00: 00 No 1mg venlafaxine ER 75 mg tablet,exte nded release 24 hr 2-14 00:00: 00 No 1mg prednisone 5 mg tablet 2-11 00:00: 00 No 1mg naproxen 500 mg tablet 11-13 00:00: 00 No 1mg simvastatin 20 mg [...] 00 No 1mg simvastatin 20 mg tablet 24 00:00: 00 No 1mg cyclobenzap rine 10 [...] Filled Immunization Name Date Status Comments Source [facility] COVID-19 Vaccine 2021-10-02 00:00:00 Completed Covid-19 Vaccine (Pay with a Tweet) 2021-10-02 00:00:00 Completed Kathleen Adrian - External Covid-19 Vaccine (Pay with a Tweet) 2021-10-02 00:00:00 Completed Kathleen Adrian - External Covid-19 Vaccine (Pay with a Tweet) Unknown Completed Kathleen Mckinneyold - External Covid-19 Vaccine (Pay with a Tweet) Unknown Completed Kathleen Mckinneyold - External Covid-19 Vaccine (Pay with a Tweet) Unknown Completed Kathleen Mckinneyold - External Covid-19 Vaccine (Pay with a Tweet) Unknown Completed Kathleen Sekarinaold - External Covid-19 Vaccine (Osmar) Unknown Completed Kathleen Marmolejoybold - External Covid-19 Vaccine (Osmar) Unknown Completed Kathleen Marmolejoybold - External Vital Signs Vital Name Observation Time Observation Value Comments Olimpia eli Systolic blood pressure 2024-12-25 15:57:00 112 mm[Hg] Kathleen Mckinneyo ld - External Diastolic blood pressure 2024-12-25 15:57:00 76 mm[Hg] Kathleen Marmolejoybo ld - External Heart rate 2024-12-25 15:57:00 70 /min Alexandra y Seybold - External Body temperature 2024-12-25 15:57:00 36.11 Cari Kathleen Marmolejoybold - External Respiratory rate 2024-12-25 15:57:00 16 /min Kathleen Marmolejoybold - External Body height 2024-12-25 15:57:00 167.6 cm Cherri tillman Seybold - External Body weight 2024-12-25 15:57:00 92.987 kg Cherri ey Seybold - External BMI 2024-12-25 15:57:00 33.09 kg/m2 Cherri ey Seybold - External Oxygen saturation in Arterial blood by Pulse oximetry 2024-12-25 15:57:00 99 /min Kathleen Mckinneyo ld - External Systolic blood pressure 2024-10-20 17:10:00 128 mm[Hg] [facility] Diastolic blood pressure 2024-10-20 17:10:00 87 mm[Hg] [facility] Heart rate 2024-10-20 17:10:00 61 /min [facility] 2024-10-20 17:10:00 36.72 Cari [facility] Oxygen saturation in Arterial blood by Pulse oximetry 2024-10-20 17:10:00 98 /min [facility] Respiratory rate 2024-10-20 15:03:00 16 /min [facility] Body height 2024-10-20 14:04:00 167.6 cm [facility] Body weight 2024-10-20 14:04:00 91.491 kg [facility] BMI 2024-10-20 14:04:00 32.56 kg/m2 [facility] Systolic blood pressure 2024-09-19 16:41:00 122 mm[Hg] Kathleen Seybo ld - External Diastolic blood pressure 2024-09-19 16:41:00 78 mm[Hg] Kathleen Seybo ld - External Heart rate 2024-09-19 16:41:00 96 /min Kelse y Seybold - External Body temperature 2024-09-19 16:41:00 36.67 Cari Kathleen Seybold - External Respiratory rate 2024-09-19 16:41:00 16 /min Kathleen Seybold - External Body height 2024-09-19 16:41:00 167.6 cm Cherri ey Seybold - External Body weight 2024-09-19 16:41:00 92.647 kg Cherri ey Seybold - External BMI 2024-09-19 16:41:00 32.97 kg/m2 Cherri ey Seybold - External Oxygen saturation in Arterial blood by Pulse oximetry 2024-09-19 16:41:00 100 /min Kathleen Seybo ld - External Systolic blood pressure 2024-06-20 19:09:00 120 mm[Hg] Kathleen Seybo ld - External Diastolic blood pressure 2024-06-20 19:09:00 86 mm[Hg] Kathleen Seybo ld - External Heart rate 2024-06-20 19:09:00 98 /min Kelse y Seybold - External Body temperature 2024-06-20 19:09:00 36.44 Cari Kathleen Seybold - External Respiratory rate 2024-06-20 19:09:00 16 /min Kathleen Seybold - External Body height 2024-06-20 19:09:00 167.6 cm Cherri ey Seybold - External Body weight 2024-06-20 19:09:00 94.802 kg Cherri ey Seybold - External BMI 2024-06-20 19:09:00 33.73 [...] External Heart rate 2023-08-20 14:06:00 74 /min Andrease y Seybold - External Body temperature 2023-08-20 [...] External Heart rate 2023-04-16 16:23:00 91 /min Andrease y Seybold - External Body temperature 2023-04-16 [...] Pulse oximetry 2023-04-16 16:23:00 99 /min Kathleen Marmolejoybo ld - External Systolic blood pressure 2023-03-23 [...] blood pressure 2023-01-25 19:27:00 88 mm[Hg] Kathleen Seybo ld - External Heart rate 2023-01-25 [...] Pulse oximetry 2023-01-25 19:27:00 98 /min Kathleen Marmolejoybo ld - External BP Systolic 2022-04-15 17:08:00 [...] Procedure Date / Time Performed Performing Clinician Source TROPONIN I 2024-10-20 18:39:00 Vilma Cook [facility] TROPONIN I 2024-10-20 15:15:00 Suni Valencia [facility] LIPID PANEL ([id number])(TOTAL CHOLESTEROL, TRIGLYCERIDES, HDL) 2024-10-20 15:15:00 Suni Valencia [facility] TRANSTHORACIC ECHO (TTE) COMPLETE 2024-10-20 14:30:00 Suni Valencia [facility] EKG-12 LEAD 2024-10-20 12:39:29 Shakeel Neri [facility] CT ABDOMEN PELVIS W CONTRAST 2024-10-20 12:21:43 Shakeel Neri [facility] CT THORAX W CONTRAST 2024-10-20 12:21:43 Shakeel Neri [facility] XR CHEST 1 VW 2024-10-20 12:13:59 Shakeel Neri [facility] LIPASE 2024-10-20 11:47:00 Shakeel Neri [facility] TROPONIN I 2024-10-20 11:47:00 Shakeel Neri [facility] COMP. METABOLIC PANEL ([id number]) 2024-10-20 11:47:00 Shakeel Neri [facility] LIPID PANEL ([id number])(TOTAL CHOLESTEROL, TRIGLYCERIDES, HDL) 2024-10-20 11:47:00 Ashutosh Ledesma [facility] CBC WITH DIFF 2024-10-20 11:47:00 Shakeel Neri [facility] GLYCOSYLATED HEMOGLOBIN (A1C) 2024-10-20 11:47:00 Ashutosh Ledesma [facility] N-TERMINAL PRO-BNP 2024-10-20 11:47:00 Ashutosh Ledesma [facility] US ABDOMEN COMPLETE 2021-01-08 19:00:19 Taylor Rodriguez [facility] Plan of Care Planned Activity Planned Date Details Comments Source Goal Plan of Care Note [code = 63701-6] Goal Plan of Care Note [code = 64202-1] Goal Plan of Care Note [code = 02546-6] Goal Plan of Care Note [code = 31477-4] Goal Plan of Care Note [code = 85289-0] Goal Plan of Care Note [code = 98200-2] Goal Plan of Care Note [code = 60791-1] Goal Plan of Care Note [code = 41703-3] Goal Plan of Care Note [code = 72298-4] Goal Plan of Care Note [code = 14604-5] Goal Plan of Care Note [code = 12270-0] Goal Plan of Care Note [code = 40210-8] Goal Plan of Care Note [code = 15741-2] Goal Plan of Care Note [code = 56042-2] Goal Plan of Care Note [code = 93660-8] Goal Plan of Care Note [code = 52083-1] Goal Plan of Care Note [code = 84628-8] Goal Plan of Care Note [code = 24275-4] Goal Plan of Care Note [code = 14956-6] Goal Plan of Care Note [code = 28004-9] Goal Plan of Care Note [code = 60679-7] Goal Plan of Care Note [code = 04922-7] Goal Plan of Care Note [code = 90363-0] Goal Plan of Care Note [code = 63773-8] Goal Plan of Care Note [code = 15682-7] Goal Plan of Care Note [code = 64174-6] Goal Plan of Care Note [code = 52854-8] Goal Plan of Care Note [code = 38222-5] Goal Plan of Care Note [code = 71744-7] Goal Plan of Care Note [code = 46236-9] Goal Plan of Care Note [code = 22787-1] Goal Plan of Care Note [code = 47396-0] Goal Plan of Care Note [code = 01801-6] Goal Plan of Care Note [code = 14009-3] Encounters Start Date/Time End Date/Time Encounter Type Admission Type Attending [facility] Care Department Encounter ID Source 2025-03-27 10:15:00 2025-03-27 10:15:00 Outpatient BNE LINARES KATHLEEN GAY [id number] [facility] 2025-02-19 00:00:00 2025-02-19 00:00:00 Outpatient MILAGROS BEN GAY [id number] [facility] 2025-02-14 00:00:00 2025-02-14 00:00:00 Outpatient PREZAOlimpia BEN GAY [id number] [facility] 2025-02-04 00:00:00 2025-02-04 00:00:00 Outpatient PREZAGAMALIEL ParisARMANDO GAY [id number] [facility] 2025-01-26 00:00:00 2025-01-26 00:00:00 Outpatient PREZAOlimpia BEN GAY [id number] [facility] 2024-12-27 00:00:00 2024-12-27 00:00:00 Outpatient KATHLEEN GAY [id number] [facility] 2024-12-25 11:00:00 2024-12-25 11:00:00 Outpatient PREZAGAMALIEL ParisARMANDO GAY [id number] [facility] 2024-12-18 10:00:00 2024-12-18 10:00:00 Outpatient PREZAOlimpia BEN GAY [id number] [facility] 2024-12-14 00:00:00 2024-12-14 00:00:00 Outpatient KATHLEEN GAY [id number] [facility] 2024-12-13 00:00:00 2024-12-13 00:00:00 Outpatient PREZAOlimpia BEN GAY [id number] [facility] 2024-11-23 00:00:00 2024-11-23 00:00:00 Outpatient PREZASBEN [id number] [facility] 2024-11-22 00:00:00 2024-11-22 00:00:00 Outpatient KATHLEEN GAY [id number] [facility] 2024-11-20 00:00:00 2024-11-20 00:00:00 Outpatient PREZASBEN [id number] [facility] 2024-11-20 00:00:00 2024-11-20 00:00:00 Outpatient PREZASBEN [id number] [facility] 2024-11-01 00:00:00 2024-11-01 00:00:00 Outpatient PREZASBEN [id number] [facility] 2024-11-01 00:00:00 2024-11-01 00:00:00 Outpatient ELLIOTZASBEN [id number] [facility] 2024-10-30 00:00:00 2024-10-30 00:00:00 Outpatient KATHLEEN GAY [id number] [facility] 2024-10-23 00:00:00 2024-10-23 00:00:00 Outpatient PREZASBEN [id number] [facility] 2024-10-20 05:36:00 2024-10-20 14:45:00 Emergency Shakeel Neri Mohammad A. [facility] [id number] [facility] 2024-10-20 05:36:00 2024-10-20 14:45:00 Outpatient SUN[facility] [id number] [facility] 2024-10-09 00:00:00 2024-10-09 00:00:00 Outpatient ELLIOTZABEN Paris KATHLEEN [id number] [facility] 2024-09-19 10:45:00 2024-09-19 10:45:00 Outpatient PREZAS, BEN GAY KATHLEEN [id number] [facility] 2024-09-19 00:00:00 2024-09-19 00:00:00 Outpatient KATHLEEN KATHLEEN [id number] [facility] 2024-09-12 00:00:00 2024-09-12 00:00:00 Outpatient PREZAS, BEN GAY KATHLEEN [id number] [facility] 2024-09-09 00:00:00 2024-09-09 00:00:00 Outpatient PREZAS, BEN GAY KATHLEEN [id number] [facility] 2024-08-29 00:00:00 2024-08-29 00:00:00 Outpatient PREZAS, BEN GAY KATHLEEN [id number] [facility] 2024-08-08 00:00:00 2024-08-08 00:00:00 Outpatient PREZAS, BEN GAY KATHLEEN [id number] [facility] 2024-08-04 00:00:00 2024-08-04 00:00:00 Outpatient PREZAS, BEN GAY KATHLEEN [id number] [facility] 2024-08-04 00:00:00 2024-08-04 00:00:00 Outpatient PREZAS, BEN GAY KATHLEEN [id number] [facility] 2024-07-27 00:00:00 2024-07-27 00:00:00 Outpatient KATHLEEN GAY [id number] [facility] 2024-07-26 00:00:00 2024-07-26 00:00:00 Outpatient KATHLEEN GAY [id number] [facility] 2024-07-17 09:55:00 2024-07-17 09:55:00 Outpatient LAB90 KATHLEEN GAY [id number] [facility] 2024-07-13 00:00:00 2024-07-13 00:00:00 Outpatient PREZAS, BEN KATHLEEN GAY [id number] [facility] 2024-06-21 00:00:00 2024-06-21 00:00:00 Outpatient PREZAS, BEN KATHLEEN GAY [id number] [facility] 2024-06-20 14:30:00 2024-06-20 14:30:00 Outpatient PREZAS, BEN GAY KATHLEEN [id number] [facility] 2024-06-20 00:00:00 2024-06-20 00:00:00 Outpatient KATHLEEN GAY [id number] [facility] 2024-05-28 00:00:00 2024-05-28 00:00:00 Outpatient PREZAS, BEN GAY KATHLEEN [id number] [facility] 2024-05-28 00:00:00 2024-05-28 00:00:00 Outpatient PREZAS, BEN KATHLEEN GAY [id number] [facility] 2024-05-05 00:00:00 2024-05-05 00:00:00 Outpatient PREZAS, BEN KATHLEEN GAY [id number] [facility] 2024-03-24 00:00:00 2024-03-24 00:00:00 Outpatient PREZAS, BEN GAY KATHLEEN [id number] [facility] 2024-03-20 00:00:00 2024-03-20 00:00:00 Outpatient PREZAS, BEN KATHLEEN GAY [id number] [facility] 2024-02-09 00:00:00 2024-02-09 00:00:00 Outpatient PREZAS, BEN KATHLEEN GAY [id number] [facility] 2024-01-27 00:00:00 2024-01-27 00:00:00 Outpatient PREZAS, BEN KATHLEEN GAY [id number] [facility] 2024-01-12 00:00:00 2024-01-12 00:00:00 Outpatient DEBRALISA [id number] [facility] 2024-01-10 00:00:00 2024-01-10 00:00:00 Outpatient PREZAS, BEN GAY [id number] [facility] 2023-12-29 15:30:00 2023-12-29 15:30:00 Outpatient PREZAS, BEN GAY [id number] [facility] 2023-12-24 00:00:00 2023-12-24 00:00:00 Outpatient PREZAS, BEN GAY KATHLEEN [id number] [facility] 2023-12-24 00:00:00 2023-12-24 00:00:00 Outpatient KATHLEEN GAY [id number] [facility] 2023-12-23 00:00:00 2023-12-23 00:00:00 Outpatient KATHLEEN KATHLEEN [id number] [facility] 2023-12-02 09:30:00 2023-12-02 09:30:00 Outpatient PREZAS, BEN KATHLEEN GAY [id number] [facility] 2023-12-02 00:00:00 2023-12-02 00:00:00 Outpatient KATHLEEN GAY [id number] [facility] 2023-12-02 00:00:00 2023-12-02 00:00:00 Outpatient DEBRALISA Haque [id number] [facility] 2023-11-24 00:00:00 2023-11-24 00:00:00 Outpatient PREZAS, BEN KATHLEEN GAY [id number] [facility] 2023-11-23 00:00:00 2023-11-23 00:00:00 Outpatient PREZAS, BEN KATHLEEN GAY [id number] [facility] 2023-11-22 00:00:00 2023-11-22 00:00:00 Outpatient PREZAS, BEN KATHLEEN GAY [id number] [facility] 2023-11-20 00:00:00 2023-11-20 00:00:00 Outpatient PREZAS, BEN KATHLEEN GAY [id number] [facility] 2023-10-19 00:00:00 2023-10-19 00:00:00 Outpatient DEBRALISA [id number] [facility] 2023-09-28 00:00:00 2023-09-28 00:00:00 Outpatient PREZAS, BEN GAY [id number] [facility] 2023-09-06 00:00:00 2023-09-06 00:00:00 Outpatient LISA RICHARDSON KATHLEEN [id number] [facility] 2023-09-01 00:00:00 2023-09-01 00:00:00 Outpatient LISA RICHARDSON KATHLEEN [id number] [facility] 2023-08-31 13:30:00 2023-08-31 13:30:00 Outpatient KATHLEEN GAY [id number] [facility] 2023-08-30 00:00:00 2023-08-30 00:00:00 Outpatient PREZABEN Paris KATHLEEN [id number] [facility] 2023-08-24 00:00:00 2023-08-24 00:00:00 Outpatient KATHLEEN GAY [id number] [facility] 2023-08-20 09:15:00 2023-08-20 09:15:00 Outpatient PREZAS, BEN KATHLEEN GAY [id number] [facility] 2023-08-20 00:00:00 2023-08-20 00:00:00 Outpatient PREZASBEN KATHLEEN [id number] [facility] 2023-08-17 00:00:00 2023-08-17 00:00:00 Outpatient PREZAS, BEN FRANCOBEENA GAY [id number] [facility] 2023-08-04 11:00:00 2023-08-04 11:00:00 Outpatient KATHLEEN GAY [id number] [facility] 2023-08-04 09:00:00 2023-08-04 09:00:00 Outpatient KATHLEEN GAY [id number] [facility] 2023-08-02 00:00:00 2023-08-02 00:00:00 Outpatient MARICARMEN JONES [id number] [facility] 2023-07-30 00:00:00 2023-07-30 00:00:00 Outpatient PREZASBEN KATHLEEN GAY [id number] [facility] 2023-07-12 00:00:00 2023-07-12 00:00:00 Outpatient MARICARMEN JONES [id number] [facility] 2023-07-12 00:00:00 2023-07-12 00:00:00 Outpatient BEN LINARES KATHLEEN GAY [id number] [facility] 2023-07-07 15:00:00 2023-07-07 15:00:00 Outpatient HORACIO KATHLEEN GAY [id number] [facility] 2023-07-07 14:30:00 2023-07-07 14:30:00 Outpatient LISA RICHARDSON KATHLEEN GAY [id number] [facility] 2023-06-11 00:00:00 2023-06-11 00:00:00 Outpatient PREBEN RUIZ KATHLEEN GAY [id number] [facility] 2023-06-10 00:00:00 2023-06-10 00:00:00 Outpatient PREZASGAMALIELBENARMANDO GAY [id number] [facility] 2023-06-10 00:00:00 2023-06-10 00:00:00 Outpatient PREZABEN Paris KATHLEEN GAY [id number] [facility] 2023-05-25 00:00:00 2023-05-25 00:00:00 Outpatient ISABELLA DONALDSON KATHLEEN GAY [id number] [facility] 2023-05-24 00:00:00 2023-05-24 00:00:00 Outpatient ROBERT, MARICARMEN KATHLEEN GAY [id number] [facility] 2023-05-24 00:00:00 2023-05-24 00:00:00 Outpatient KATHLEEN GAY [id number] [facility] 2023-05-21 11:00:00 2023-05-21 11:00:00 Outpatient BEN LINARES KATHLEEN GAY [id number] [facility] 2023-05-18 11:00:00 2023-05-18 11:00:00 Outpatient SHAAN LATOYA KATHLEEN GAY [id number] [facility] 2023-05-12 00:00:00 2023-05-12 00:00:00 Outpatient GAMALIEL LINARESARMANDO GAY [id number] [facility] 2023-04-28 00:00:00 2023-04-28 00:00:00 Outpatient MARICARMEN JONES KATHLEEN AGY [id number] [facility] 2023-04-26 00:00:00 2023-04-26 00:00:00 Outpatient MARICARMEN JONES KATHLEEN GAY [id number] [facility] 2023-04-22 00:00:00 2023-04-22 00:00:00 Outpatient MARICARMEN JONES KATHLEEN GAY [id number] [facility] 2023-04-21 00:00:00 2023-04-21 00:00:00 Outpatient KATHLEEN GAY [id number] [facility] 2023-04-16 11:30:00 2023-04-16 11:30:00 Outpatient PREZASBEN KATHLEEN GAY [id number] [facility] 2023-04-12 00:00:00 2023-04-12 00:00:00 Outpatient MARICARMEN JONES KATHLEEN GAY [id number] [facility] 2023-04-09 00:00:00 2023-04-09 00:00:00 Outpatient PREZAS, BEN [facility]EN GAY [id number] [facility] 2023-04-06 11:30:00 2023-04-06 11:30:00 Outpatient KARLEY NAVARRO KATHLEEN GAY [id number] [facility] 2023-04-06 11:05:00 2023-04-06 11:05:00 Outpatient NITIN KATHLEEN GAY [id number] [facility] 2023-04-02 00:00:00 2023-04-02 00:00:00 Outpatient PREZAS, BEN KATHLEEN GAY [id number] [facility] 2023-04-01 13:40:00 2023-04-01 13:40:00 Outpatient ROGELIOMICHELLE ALMANZA [id number] [facility] 2023-03-31 00:00:00 2023-03-31 00:00:00 Outpatient PREZAS, BEN GAY [id number] [facility] 2023-03-30 00:00:00 2023-03-30 00:00:00 Outpatient PREZABEN Paris KATHLEEN KATHLEEN [id number] [facility] 2023-03-30 00:00:00 2023-03-30 00:00:00 Outpatient PREBEN RUIZ KATHLEEN KATHLEEN [id number] [facility] 2023-03-26 00:00:00 2023-03-26 00:00:00 Outpatient LATOYA GARDUNO KATHLEEN GAY [id number] [facility] 2023-03-26 00:00:00 2023-03-26 00:00:00 Outpatient MARICARMEN JONES [id number] [facility] 2023-03-26 00:00:00 2023-03-26 00:00:00 Outpatient KATHLEEN GAY [id number] [facility] 2023-03-25 00:00:00 2023-03-25 00:00:00 Outpatient MARICARMEN JONES [id number] [facility] 2023-03-23 15:40:00 2023-03-23 15:40:00 Outpatient BENITAJairo GAY [id number] [facility] 2023-03-23 14:45:00 2023-03-23 14:45:00 Outpatient LATOYA GARDUNO KATHLEEN GAY [id number] [facility] 2023-03-10 00:00:00 2023-03-10 00:00:00 Outpatient MARICARMEN JONES [id number] [facility] 2023-03-04 00:00:00 2023-03-04 00:00:00 Outpatient PREZASBEN KATHLEEN GAY [id number] [facility] 2023-02-04 00:00:00 2023-02-04 00:00:00 Outpatient MARICARMEN JONES [id number] [facility] 2023-02-02 00:00:00 2023-02-02 00:00:00 Outpatient MARICARMEN JONES [id number] [facility] 2023-01-26 00:00:00 2023-01-26 00:00:00 Outpatient ISABELLA DONALDSON [id number] [facility] 2023-01-25 14:30:00 2023-01-25 14:30:00 Outpatient MARICARMEN JONES [id number] [facility] 2022-10-20 09:20:16 2022-10-20 09:20:16 Outpatient SFA SFA [id number] Erasmo Hess 2022-04-15 00:00:00 2022-04-15 00:00:00 Outpatient Visit [id number] 2021-01-08 12:50:52 2021-01-08 23:59:00 Hospital Encounter Taylor Rodriguez [facility] [id number] [facility] 2021-01-08 00:00:00 2021-01-08 00:00:00 Outpatient R TAYLOR RODRIGUEZ [facility] [id number] [facility] Results Test Description Test Time Test Comments Results Result Co mments Source [facility] 1 [id number] 15:15:29EXAM: XR CHEST 1 VW HISTORY: 64 years-old Female with chest pain . TECHNIQUE: Single frontal view of the chest. COMPARISON: None FINDINGS: Lungs and pleura: Low lung volume likely due to poor inspiratory effort. No focal opacities, pleural effusion or pneumothorax. Heart/Mediastinum: The cardiac silhouette appears at the upper limits ofnormal accounting for technique and degree of inspiration. Bones and soft tissues: No acute osseous abnormality.[facility] [id number] 14:28:08* Test Item Value Reference Range Interpretation Comme nts NT-proBNP (test code = 93712-2) <=125 Lab Interpretation (test cod e = 24385-8) Normal [facility] Hem[facility] (A1C)2024-10-20 14:09:25* Test Item Value Reference Range Interpretation Comme nts HGB A1C (test code = 4548-4) 5.7 % 4.0-5.7 MARVA (test code = MARVA) Reference RangesNormal: <5.7%Prediabetes: 5.7 - 6.4%Diabetes: > 6.5% Lab Interpretation (test code = 39606-6) Normal [facility] (94311)(Total Cholesterol, Triglycerides, HDL)2024-10-20 14:02:59* Test Item Value Reference Range Interpretation Comme nts CHOL (test code = 2709290756) 171 mg/dL 120-200 HDL (test code = 6772256694) 53 mg/dL >=50 HDLC RATIO (test code = 3361192290) 3.2 <=4.5 TRIG (test code = 2238186198) 94 mg/dL 30-170 LDL CHOL (test code = 29322-7) 99 mg/dL <=160 VLDL (test code = 9070877674) 19 mg/dL 5-60 Lab Interpretation (test cod e = 31428-3) Normal [facility] Thorax w [id number] 13:09:34EXAM: CT THORAX W CONTRAST, CT ABDOMEN PELVIS W CONTRAST CLINICAL INDICATION: Chest pain through her back, Dyspnea, chronic, unclearetiology, evaluate for aortic dissection ? COMPARISON: Abdominal ultrasound dated 01/08/2021 TECHNIQUE: Volumetric images of the chest and abdomen pelvis were acquired(from lung apices through the proximal thighs) following administration ofiodine contrast. Images were reconstructed at 2.5 mm slice thickness. MIPaxial images, coronal and sagittal reformats were alsosubmitted forinterpretation. FINDINGS: CT THORAX: LUNGS AND PLEURA: The lungs are well-expanded andclear. No focal opacitiesare identified. No suspicious nodules. Calcified subcentimeter granuloma isseen in the left lower lobe. No pleural abnormality detected. LYMPH NODES: Scattered small lymph nodes in both sides of the mediastinumand hilar regions. No evidence of intrathoracic lymphadenopathy.MEDIASTINUM AND LOWER NECK: No central airway lesions are detected. Theesophagus is within normal limits. The included thyroid gland appearsnormal. HEART AND GREAT VESSELS: The heart is normal in size. No pericardialabnormalities are identified. The RV to LV ratio is normal. The ascendingthoracic aorta is mildly ectatic, measuring up to 4 cm in maximumthickness. The descending thoracic aorta is normal in caliber with moderatecalcified and noncalcified atherosclerotic plaques. Moderate to severea therosclerotic calcifications of the coronary vessels. The pulmonary trunk is normal in caliber. Small foci of gas is seen in theorigin of pulmonary trunk. OSSEOUS STRUCTURES AND SOFT TISSUES: No focal osseous lesions are detected.The soft tissues appear normal. CT ABDOMEN AND PELVIS: LIVER AND BILIARY: The liver is normal in size and contour. No focalhepatic lesion is seen. The gallbladder appears unremarkable. No radiopaquegallstones are seen. No intra or extrahepatic biliary ductal dilation isvisualized. PANCREAS: Normal morphology and enhancement. No ductal dilation or massesare visualized. SPLEEN: The spleen appears unremarkable. ADRENAL GLANDS: No adrenal masses are seen. KIDNEYS, URET ERS, AND BLADDER: ?Normal renal size, morphology, andenhancement. ?No solid masses. ?No stones or hydronephrosis. The bladderappears unremarkable. REPRODUCTIVE ORGANS: Prior hysterectomy. GI TRACT AND PERITONEUM: No dilation or bowel wall thickening is seen. Theappendix is not definitively visualized, however, no secondary signs ofappendicitis are seen. ?No intra-abdominal free air or fluid collection isvisualized. Scattered colonic diverticulosis without acute diverticulitis. VESSELS: Moderateatherosclerotic calcifications affect the abdominalaorta, bilateral common iliac arteries, and their branch vessels. Noabdominal aortic aneurysm. LYMPH NODES: No lymphadenopathy. BONES AND SOFT TISSUES: No aggressive osseous lesion.[facility] Abdomen pelvis w [id number] 13:09:34EXAM: CT THORAX W CONTRAST, CT ABDOMEN PELVIS W CONTRAST CLINICAL INDICATION: Chest pain through her back, Dyspnea, chronic, unclearetiology, evaluate for aortic dissection ? COMPARISON: Abdominal ultrasound dated 01/08/2021 TECHNIQUE: Volumetric images of the chest and abdomen pelvis were acquired(from lung apices through the proximal thighs) following administration ofiodine contrast. Images were reconstructed at 2.5 mm slice thickness. MIPaxial images, coronal and sagittal reformats were also submitted forinterpretation. FINDINGS: CT THORAX: LUNGS AND PLEURA: The lungs are well-expanded andclear. No focal opacitiesare identified. No suspicious nodules. Calcified subcentimeter granuloma isseen in the left lower lobe. No pleural abnormality detected. LYMPH NODES: Scattered small lymph nodes in both sides of the mediastinumand hilar regions. No evidence of intrathoracic lymphadenopathy.MEDIASTINUM AND LOWER NECK: No central airway lesions are detected. Theesophagus is within normal limits. The included thyroid gland appearsnormal. HEART AND GREAT VESSELS: The heart is normal in size. No pericardialabnormalities are identified. The RV to LV ratio is normal. The ascendingthoracic aorta is mildly ectatic, measuring up to 4 cm in maximumthickness. The descending thoracic aorta is normal in caliber with moderatecalcified and noncalcified atherosclerotic plaques. Moderate to severea therosclerotic calcifications of the coronary vessels. The pulmonary trunk is normal in caliber. Small foci of gas is seen in theorigin of pulmonary trunk. OSSEOUS STRUCTURES AND SOFT TISSUES: No focal osseous lesions are detected.The soft tissues appear normal. CT ABDOMEN AND PELVIS: LIVER AND BILIARY: The liver is normal in size and contour. No focalhepatic lesion is seen. The gallbladder appears unremarkable. No radiopaquegallstones are seen. No intra or extrahepatic biliary ductal dilation isvisualized. PANCREAS: Normal morphology and enhancement. No ductal dilation or massesare visualized. SPLEEN: The spleen appears unremarkable. ADRENAL GLANDS: No adrenal masses are seen. KIDNEYS, URET ERS, AND BLADDER: ?Normal renal size, morphology, andenhancement. ?No solid masses. ?No stones or hydronephrosis. The bladderappears unremarkable. REPRODUCTIVE ORGANS: Prior hysterectomy. GI TRACT AND PERITONEUM: No dilation or bowel wall thickening is seen. Theappendix is not definitively visualized, however, no secondary signs ofappendicitis are seen. ?No intra-abdominal free air or fluid collection isvisualized. Scattered colonic diverticulosis without acute diverticulitis. VESSELS: Moderateatherosclerotic calcifications affect the abdominalaorta, bilateral common iliac arteries, and their branch vessels. Noabdominal aortic aneurysm. LYMPH NODES: No lymphadenopathy. BONES AND SOFT TISSUES: No aggressive osseous lesion.[facility] HoustonNydia [id number] 12:35:29* Test Item Value Reference Range Interpretation Comme nts TROPONIN I (test code = 5586409184) 0.009 ng/mL <=0.034 MARVA (test code = MARVA) Reference (Normal) Range (defined by the 99th percentile reference limit): <= 0.034 ng/mL Note: Cardiac troponin begins to rise 3-4 hours after the onset of ischemia. Repeat in 4-6 hours if the sample was drawn within 3-4 hours of the onset of the symptom and found normal. Diagnosis of myocardial injury is made with acute changes in cTn concentrations with at least one serial sample above the 99th percentile upper reference limit (URL), taken together with the patient's clinical presentation. Biotin has been reported to cause a negative bias, interpret results relative to patient's use of biotin. Lab Interpretation (test code = 97943-6) Normal [facility] with [id number] 12:30:32* Test Item Value Reference Range Interpretation Comme nts WBC (test code = 6690-2) 7.24 4.30-11.10 RBC (test code = 789-8) 4.47 3.93-5.25 HGB (test code = 718-7) 13.0 g/dL 11.6-15.0 HCT (test code = 4544-3) 40.4 % 35.7-45.2 MCV (test code = 787-2) 90.4 fL 80.6-95.5 MCH (test code = 785-6) 29.1 pg 25.9-32.8 MCHC (test code = 786-4) 32.2 g/dL 31.6-35.1 RDW-SD (test code = 85795-4) 45.4 fL 39.0-49.9 RDW-CV (test code = 788-0) 13.6 % 12.0-15.5 PLT (test code = 777-3) 297 166-358 MPV (test code = 51093-1) 9.4 fL 9.5-12.9 L NRBC/100 WBC (test code = 2076513194) 0.0 0.0-10.0 NRBC x10^3 (test code = 4567542202) See_Comment [Automated [employer] ge] The system which generated this result transmitted reference range: 10*3/?L. The reference range was not used to interpret this result as normal/abnormal. GRAN MAT (NEUT) % (test code = 770-8) 49.1 % IMM GRAN % (test code = 1908989133) 0.70 % LYMPH % (test code = 736-9) 37.8 % MONO % (test code = 5905-5) 8.8 % EOS % (test code = 713-8) 2.8 % BASO % (test code = 706-2) 0.8 % GRAN MAT x10^3(ANC) (test code = 1745407485) 3.55 10*3/uL 1.88-7.09 IMM GRAN x10^3 (test code = 9990180014) 0.05 10*3/uL 0.00-0.06 LYMPH x10^3 (test code = 731-0) 2.74 10*3/uL 1.32-3.29 MONO x10^3 (test code = 742-7) 0.64 10*3/uL 0.33-0.92 EOS x10^3 (test code = 711-2) 0.20 10*3/uL 0.03-0.39 BASO x10^3 (test code = 704-7) 0.06 10*3/uL 0.01-0.07 Lab Interpretation (test code = 38411-1) [facility]normal [facility] (79990)2024-10-20 12:29:37* Test Item Value Reference Range Interpretation Comme nts NA (test code = 0663500243) 140 mmol/L 135-145 K (test code = 8612678372) 4.1 mmol/L 3.5-5.0 CL (test code = 1965261469) 107 mmol/L 98-108 CO2 TOTAL (test code = 3290146504) 26 mmol/L 23-31 AGAP (test code = 7515552766) 7 2-16 BUN (test code = 3077350205) 15 mg/dL 7-23 GLUCOSE (test code = 2503084069) 110 mg/dL 70-110 CREATININE (test code = 2160-0) 0.78 mg/dL 0.50-1.04 TOTAL BILI (test code = 6105627486) 0.5 mg/dL 0.1-1.1 CALCIUM (test code = 2932010798) 9.5 mg/dL 8.6-10.6 T PROTEIN (test code = 8300054844) 7.6 g/dL 6.3-8.2 ALBUMIN (test code = 1529341042) 4.5 g/dL 3.5-5.0 ALK PHOS (test code = 4074178281) 94 U/L 34-122 ALTv (test code = 1742-6) 28 U/L 5-35 AST(SGOT) (test code = 0180146815) 30 U/L 13-40 eGFR (test code = 17160-5) 84.9 mL/min/1.73m2 CKD-EPI eGFR (20 21). Assuming creatinine has been stable day-to-day for at least three months, the eGFR indicates Category G2 (60 - 89 mL/min/1.73 m2) [facility]2025-[facility] 12:23:29* Test Item Value Reference Range Interpretation Comme nts LIPASE (test code = 1646233122) 87 U/L 0-220 Lab Interpretation (test cod e = 23618-4) Normal [facility] [id number] 00:00:00* Test Item Value Reference Range Interpretation Comme nts CHOLESTEROL (test code = 2210) 228 MG/DL TRIGLYCERIDES (test code = 2232) 137 MG/DL HDL CHOLESTEROL (test code = 2220) 40 MG/DL CALC LDL CHOL (test code = 2237) 162 MG/DL RISK RATIO LDL/HDL (test cod e = 2238) 4.05 RATIO HEMOGLOBIN [id number] 00:00:00* Test Item Value Reference Range Interpretation Comme nts HEMOGLOBIN A1c (test code = 48486) 6.1 % US ABDOMEN [id number] 19:21:42Mildly diffusely echogenic liver can be seen [...] No free fluid in the upper abdomen. Almb, Radiant Results Inft User - 01/08/2021 2:22 [...] hepatic lesions identified to the extent visualized.No cholelithiasis.[facility] W/AUTO [id number] 00:00:00* Test Item Value Reference Range Interpretation [...] code = 1015) 343 K/UL COMPREHENSIVE METABOLIC [id number] 00:00:00* Test Item Value Reference Range Interpretation Comme nts GLUCOSE (test code = 2217) 123 MG/DL BUN (test code = 2208) 12 MG/DL CREATININE (test code = 2214) 0.82 MG/DL eGFR AMER. (test cod e = 44650) 90 ML/MIN/1.73 eGFR NON- AMER. (test code = 56939) 78 ML/MIN/1.73 CALC BUN/CREAT (test code = [...] ALT (test code = 2219) 40 U/L [id number] 00:00:00* Test Item Value Reference Range Interpretation Comme nts PROGESTERONE (test code = 2790) <0.20 NG/ML [id number] 00:00:00* Test Item Value Reference Range Interpretation Comme nts ESTRADIOL (test code = 2505) 19.6 PG/ML CCP [id number] 00:00:00* Test Item Value Reference Range Interpretation Comme nts CCP IgG (test code = 49839) 3 UNITS VITAMIN D, 25 [id number] 00:00:00* Test Item Value Reference Range Interpretation Comme nts VITAMIN D, 25 OH (test code = 4958) 29 NG/ML H. PYLORI (BREATH)2019-02-08 00:00:00* Test Item Value Reference Range Interpretation Comme nts H. PYLORI (BREATH) (test cod e = 22867) NEGATIVE RHEUMATOID FACTOR IgG, IgM, [id number] 00:00:00* Test Item Value Reference Range Interpretation Comme nts RHEUMATOID FACTOR IgG (test code = 94711) 3 Units RHEUMATOID FACTOR IgA (test code = 67156) 2 Units RHEUMATOID FACTOR IgM (test code = 07091) 69 Units SEDIMENTATION [id number] 00:00:00* Test Item Value Reference Range Interpretation Comme nts SEDIMENTATION RATE (test cod e = 1017) 28 MM/HOUR HIGH SENSITIVITY [id number] 00:00:00* Test Item Value Reference Range Interpretation Comme nts HIGH SENSITIVITY CRP (test c ode = 51735) 2.2 MG/L GREGG (ANTI-NUCLEAR AB) WITH REFLEX [id number] 00:00:00* Test Item Value Reference Range Interpretation Comme nts ANTI-NUCLEAR ANTIBODIES (rosi t code = 3506) NEGATIVE URIC [id number] 00:00:00* Test Item Value Reference Range Interpretation Comme nts URIC ACID (test code = 2233) 4.8 MG/DL VITAMIN D, 25 [id number] 00:00:00* Test Item Value Reference Range Interpretation Comme [facility] VITAMIN D, 25 OH (test code = 4958) 20 NG/ML IRON, [id number] 00:00:00* Test Item Value Reference Range Interpretation Comme [facility] IRON, SERUM (test code = 2222) 97 UG/DL CBC W/AUTO [id number] 00:00:00* Test Item Value Reference Range Interpretation [...] (test code = 1015) 304 K/UL HEMOGLOBIN [id number] 00:00:00* Test Item Value Reference Range Interpretation Comme [facility] HEMOGLOBIN A1c (test code = 71105) 5.7 % LIPID [id number] 00:00:00* Test Item Value Reference Range Interpretation Comme nts CHOLESTEROL (test code = 2210) 272 MG/DL TRIGLYCERIDES (test code = 2232) 134 MG/DL HDL CHOLESTEROL (test code = 2220) 52 MG/DL CALC LDL CHOL (test code = 2237) 193 MG/DL RISK RATIO LDL/HDL (test cod e = 2238) 3.72 RATIO COMPREHENSIVE METABOLIC [id number] 00:00:00* Test Item Value Reference Range Interpretation Comme nts GLUCOSE (test code = 2217) 101 MG/DL BUN (test code = 2208) 14 MG/DL CREATININE (test code = 2214) 0.84 MG/DL eGFR AMER. (test cod e = 26544) 89 ML/MIN/1.73 eGFR NON- AMER. (test code = 64375) 77 ML/MIN/1.73 CALC BUN/CREAT (test code = [...] THYROX. BIND. CAPAC. (test c ode = 03305) 1.1 T4 (THYROXINE) (test code = 2819) 8.1 UG/DL CORRECTED T4 (FTI) (test cod e = 2820) 7.4 UG/DL TSH, THIRD GENERATION (test code = 2821) 1.060 UIU/ML VAGINAL PATHOGENS DNA [id number] 00:00:00* Test Item Value Reference Range Interpretation Comme nts HEIKE SPECIES (test code = 89430) POSITIVE G. VAGINALIS (test code = 40539) POSITIVE T. VAGINALIS (test code = 89136) NEGATIVE PAP TEST, THINPREP, [id number] 00:00:00* Test Item Value Reference Range Interpretation Comme nts SOURCE: (test code = 8001) Cervical SLIDES: (test code = 8011) 1 LMP: (test code = 8021) NOT GIVEN SPECIMEN ADEQUACY: (test code = 95409) (NOTE) INTERPRETATION: (test code = 63395) NILM/NO EPITH. ABNORMALITY;SEE BELOW VICE PRESIDENT RISK MANAGEMENT: (test code = 8101) Serge Boswell,CT(ASCP)IAC QC TECHNOLOGIST: (test code = 8111) BEN [place]ST[place],CT(ASCP) LOCATION: (test code = 21725) (NOTE) CPT: (test code = 8140) (NOTE) HPV HIGH RISK WITH GENOTYPE, [id number] 00:00:00* Test Item Value Reference Range Interpretation Comme nts HPV HIGH RISK INTERP (test c ode = 01156) POSITIVE HPV 16 (test code = 14739) NEGATIVE HPV 18 (test code = 17391) NEGATIVE HPV, HR, OTHER GENOTYPES (te st code = 62902) POSITIVE HEPATITIS A IgM [REFLEX]2018-12-14 00:00:00* Test [...] 4675) REACTIVE HCV INDEX (test code = 49315) 1.63 INTERPRETATION HEPATITIS A: (test code = 2552) (NOTE) INTERPRETATION HEPATITIS B: (test code = 29400) (NOTE) INTERPRETATION HEPATITIS C: (test code = 91095) (NOTE) HEPATITIS C [id number] 00:00:00* Test Item Value Reference Range Interpretation Comme nts HEPATITIS C GENOTYPE (test c ode = 42237) Not detected HIV AB/AG COMBO RFLX [id number] 00:00:00* Test Item Value Reference Range Interpretation Comme nts HIV 1/2 4TH GEN, RFLX CONF ( test code = 3514) NON-REACTIVE HCV RNA, PCR [id number] 00:00:00* Test Item Value Reference Range Interpretation Comme nts HCV RNA, PCR QUANT (test code = 4571) NOT DETEC IU/ML HCV VIRAL LOG (test code = 91047) NOT DETEC LOGIU/ML LIPID [id number] 00:00:00* Test Item Value Reference Range Interpretation Comme nts CHOLESTEROL (test code = 2210) 263 MG/DL TRIGLYCERIDES (test code = 2232) 183 MG/DL HDL CHOLESTEROL (test code = 2220) 58 MG/DL CALC LDL CHOL (test code = 2237) 168 MG/DL RISK RATIO LDL/HDL (test cod e = 2238) 2.90 RATIO CBC W/AUTO [id number] 00:00:00* Test Item Value Reference Range Interpretation [...] COUNT (test code = 1015) 290 K/UL [id number] 00:00:00* Test Item Value Reference Range Interpretation Comme nts TSH (test code = 2821) 1.08 UIU/ML HEMOGLOBIN [id number] 00:00:00* Test Item Value Reference Range Interpretation Comme nts HEMOGLOBIN A1c (test code = 81111) 5.6 % COMPREHENSIVE METABOLIC [id number] 00:00:00* Test Item Value Reference Range Interpretation Comme nts GLUCOSE (test code = 2217) 88 MG/DL BUN (test code = 2208) 13 MG/DL CREATININE (test code = 2214) 0.73 MG/DL eGFR AMER. (test cod e = 07390) 107 ML/MIN/1.73 eGFR NON- AMER. (test code = 38415) 92 ML/MIN/1.73 CALC BUN/CREAT (test code = [...] ALT (test code = 2219) 18 U/L Consult Notes Date/Time Note Provider Source 2024-10-20 08:07:08 Associated Order(s): CONSULT CARDIOLOGY [facility] Cardiology Consult Note Patient: Joy Soler Date of : 1960 Date of service: 10/20/2024 Primary Care Physician: Dalila Mahmood CHIEF COMPLAINT: Chief Complaint Patient presents with Chest Pain HISTORY OF PRESENT ILLNESS: Joy Soler is a 64 year old female presented to the ER for evaluation for chest pain. History from patient. Pertinent cardiac related history reviewed from chart Presented to ER with chest discomfort mainly in the left sternal region. The chest pain happened at rest. It was persistent and is been going on for the last few days. No typical exertional symptoms elicited. Denies history of any shortness of breath. Due to these concerns patient decided to come to the ER for further evaluation management. Anxious to get discharged due to her dog at home alone. Patient was to follow-up as an outpatient for further workup. However, she states she has some insurance issues and she was not able to follow-up. Patient is going to follow-up with Dr. Guevara in the near future. Has not seen him yet. Previously seen by Dr. Blanca in [place]. Patient reports taking all cardiac medications without any interruption or failure. Reports compliance with Plavix. No PND or orthopnea. No pedal edema. No exertional palpitations or palpitations at rest. No syncopal attacks. 11/2023: She had a cardiac catheterization at that time which revealed an 80% left circumflex lesion which was stented. She also had a 60% RCA lesion, and a 30 to 40% mid LAD lesion. PAST MEDICAL HISTORY Hypertension Hyperlipidemia CAD PAST MEDICAL HISTORY No past medical history on file. No past surgical history on file. No family history on file. SOCIAL HISTORY Social History Socioeconomic History Marital status: Single Number of children: 4 Years of education: 11th grade Highest education level: GED or equivalent Tobacco Use Smoking status: Every Day Current packs/day: 0.25 Average packs/day: 0.3 packs/day for 50.0 years (12.5 ttl pk-yrs) Types: Cigarettes Start date: 10/18/1974 Passive exposure: Current Smokeless tobacco: Never ALLERGIES No Known Allergies MEDICATIONS Current Discharge Medication List STOP taking these medications albuterol-ipratropium 20-100 mcg/actuation inhaler Comments: Reason for Stopping: ALPRAZolam 1 mg tablet Comments: Reason for Stopping: amLODIPine 5 mg tablet Comments: Reason for Stopping: aspirin 81 mg chewable tablet Comments: Reason for Stopping: atorvastatin 40 mg tablet Comments: Reason for Stopping: clopidogreL 75 mg tablet Comments: Reason for Stopping: hydroCHLOROthiazide 12.5 mg capsule Comments: Reason for Stopping: Current Facility-Administered Medications: acetaminophen (TYLENOL) tablet 650 mg, 650 mg, Oral, Q6HPRN, Suni Valencia MD aspirin chewable tablet 81 mg, 81 mg, Oral, DAILY, Suni Valencia MD clopidogreL (PLAVIX) 75 mg tablet 75 mg, 75 mg, Oral, DAILY, Suni Valencia MD enoxaparin (LOVENOX) injection 40 mg, 40 mg, Subcutaneous, DAILY, Suni Valencia MD HYDROcodone-acetaminophen (NORCO 5) tablet 1 tablet, 1 tablet, Oral, Q6HPRN, Suni Valencia MD metoprolol tartrate (LOPRESSOR) tablet 12.5 mg, 12.5 mg, Oral, BID, Suni Valencia MD morphine (2 mg/mL) injection 2 mg, 2 mg, Slow IV Push, Q6HPRN, Suni Valencia MD NaCl 0.9% (NS) IV infusion 1,000 mL, 1,000 mL, IV Infusion, CONTINUOUS, Suni Valencia MD, Last Rate: 50 mL/hr at 10/20/24 0753, 500 mL at 10/20/24 0753 ondansetron (ZOFRAN (PF)) injection 4 mg, 4 mg, Slow IV Push, Q6HPRN, Suni Valencia MD REVIEW OF SYSTEMS: Comprehensive 10-system review was conducted and were negative except for what's noted in the HPI. The following systems were reviewed: Constitutional, cardiovascular, respiratory, gastrointestinal, genitourinary, musculoskeletal, neurologic, psychiatric, endocrinological, and hematological. PHYSICAL EXAMINATION: Vitals: 10/20/24 0541 10/20/24 0620 10/20/24 0803 10/20/24 0804 BP: (!) 160/108 (!) 150/95 Pulse: 82 79 Resp: 16 15 Temp: 37.1 ?C (98.7 ?F) TempSrc: Oral SpO2: 98% 97% Weight: 92.5 kg (204 lb) 91.5 kg (201 lb 11.2 oz) 91.5 kg (201 lb 11.2 oz) Height: 1.676 m (5' 6") 1.676 m (5' 6") 1.676 m (5' 6") General: no apparent distress HEENT: normocephalic atraumatic Neck: supple, no lymphadenopathy, no bruits, no JVD Lungs: clear to auscultation bilaterally. No wheezes or rhonchi. No increased work of breathing. Cardio: Regular rate and rhythm, S1&S2 normal, no murmurs, rubs or gallops Abdomen: soft; non-tender; non-distended; normoactive bowel sounds. : not examined Rectal: not examined Extremities: no clubbing, cyanosis, or edema. Skin: no rashes, no visible lesions. Neuro: no gross focal deficits LABS - Reviewed pertinent labs as below: CBC BMP PT/INR WBC (10*3/?L) Date Value 10/20/2024 7.24 NA (mmol/L) Date Value 10/20/2024 140 No results found for: "PT" PLT (10*3/?L) Date Value 10/20/2024 297 K (mmol/L) Date Value 10/20/2024 4.1 No results found for: "PTINR" HGB (g/dL) Date Value 10/20/2024 13.0 BUN (mg/dL) Date Value 10/20/2024 15 HCT (%) Date Value 10/20/2024 40.4 CREATININE (mg/dL) Date Value 10/20/2024 0.78 LIPID PROFILE GLUCOSE (mg/dL) Date Value 10/20/2024 110 CHOL (mg/dL) Date Value 10/20/2024 171 TSH LDL CHOL (mg/dL) Date Value 10/20/2024 99 No results found for: "TSH" CARDIAC ENZYMES HDL (mg/dL) Date Value 10/20/2024 53 No results found for: "CK" TRIG (mg/dL) Date Value 10/20/2024 94 LFTs No results found for: "CKMB" AST(SGOT) (U/L) Date Value 10/20/2024 30 TROPONIN I (ng/mL) Date Value 10/20/2024 0.009 ALTv (U/L) Date Value 10/20/2024 28 No results found for: "BNP" LDL CHOL (mg/dL) Date Value 10/20/2024 99 Recent Labs 10/20/24 0547 TROPNI 0.009 Recent Labs 10/20/24 0547 TRIG 94 LDL CHOL (mg/dL) Date Value 10/20/2024 99 No results found for: "NTBNP" ASSESSMENT/PLAN Principal Problem: Chest pain, unspecified type Active Problems: Obesity (BMI 30-39.9) Class 1 obesity due to excess calories with serious comorbidity and body mass index (BMI) of 32.0 to 32.9 in adult Coronary atherosclerosis Dilation of thoracic aorta History of heart artery stent Prediabetes Coronary artery disease involving [place] coronary artery of [place] heart with angina pectoris Essential hypertension Dyslipidemia Chest pain by history: No typical chest pain symptoms noted. EKG dated 10/20/2024 strips reviewed shows sinus rhythm, narrow QRS complex, no significant ST-T changes noted. Chest x-ray dated shows no evidence of any heart failure pattern CT chest dated 10/20/2024 shows no evidence of any dissection. Ascending thoracic aorta noted to be at 4 cm. Coronary calcifications noted. ECG reviewed which shows no dynamic changes noted. Recommend Serial trop X 2, Echo to assess to EF and wall motion changes. Continue telemetry monitoring Anxious to go home due to her dog being alone at home. Explained to the serial troponins x 3 are negative and the echocardiogram shows preserved LV systolic function with no significant valve abnormalities, patient may be discharged from the cardiac standpoint. Plan for outpatient stress test. Recommend ambulation prior to discharge. Previously seen by Dr. Blanca. Patient is already planned to see Dr. Guevara in the future. Recent Labs 10/20/24 0547 TROPNI 0.009 NT-proBNP (pg/mL) Date Value 10/20/2024 <20 CAD status post PCI to the obtuse marginal branch dated 11/2023. 11/2023: She had a cardiac catheterization at that time which revealed an 80% left circumflex lesion which was stented. She also had a 60% RCA lesion, and a 30 to 40% mid LAD lesion. Currently on aspirin/Plavix. Advised to be continued without any further changes. Agree with Lopressor 12.5 twice daily. Continue with the Lipitor 40 mg daily. Hypertension: Agree with Lopressor 12.5 twice daily. Continue with the home dose of amlodipine 5 daily along with hydrochlorothiazide 12.5 mg daily. Recommended goal blood pressure less than 130/80. Dyslipidemia: Recommended to continue with Lipitor 40 mg daily. Recommend increasing Lipitor to 80 mg daily. Recommended goal LDL needs to be less than 70 preferably in 40s and 50s. LDL CHOL (mg/dL) Date Value 10/20/2024 91 Ascending aorta dilatation: 4 cm. Recommended goal blood pressure less than 130/80 and strict risk factor modification. Last Two A1C Results ([facility]/LC, POCT, [facility]) Recent Labs 10/20/24 0547 HGBA1C 5.[address] Blanca. Patient is already planned to see Dr. Guevara in the future. My diagnostic impression and treatment plans were discussed at length with the patient. All side effects as well as drug-drug interactions and risks discussed at length. Ample opportunity was offered and encouraged to ask questions during this visit and patient appreciated the answers given by me and verbzalised statisfcation in the answers given. Thank you for allowing us to participate in the care of Joy Soler. If you have any questions or concerns please feel free to call our office at [phone]. I would be happy to be of further assistance for Joy Soler wellbeing. Voice recognition software has been used to create portions of this document. An attempt to proofread has been made to minimize errors. Please do not hesitate to call with any questions. Ashutosh Ledesma MD 10/20/2024 8:07 AM Lead Athlete, Division of Cardiology [facility] - Health History and Physical Notes Date/Time Note Provider Source 2024-10-20 06:46:25 [facility] Hospitalist Admission H&P Date of Service: 10/20/2024 CHIEF COMPLAINT: Chest pain rule out acute coronary syndrome HISTORY OF PRESENT ILLNESS Joy Soler is a 64 year old female who presents with chest discomfort mainly in the left sternal region. Patient's pain is similar to the pain she had in November 2023 when she was admitted to the hospital with unstable angina. She had a cardiac catheterization at that time which revealed an 80% left circumflex lesion which was stented. She also had a 60% RCA lesion, and a 30 to 40% mid LAD lesion. Patient was to follow-up as an outpatient for further workup. However, she states she has some insurance issues and she was not able to follow-up. She does state that she was able to get refills on her cardiac medications and she has been taking her Plavix religiously. She lives at home and has a dog. She is otherwise in fairly good health. At this time, patient will be admitted to the hospital for observation. PAST MEDICAL HISTORY Hypertension Hyperlipidemia CAD PAST SURGICAL HISTORY Cardiac catheterization ALLERGIES No Known Allergies MEDICATIONS Current home medication list reviewed: Patient's Medications No medications on file FAMILY HISTORY No family history on file. SOCIAL HISTORY Social History Socioeconomic History Marital status: Single REVIEW OF SYSTEMS 10 systems negative except per HPI PHYSICAL EXAMINATION BP (!) 150/95 | Pulse 79 | Temp 37.1 ?C (98.7 ?F) (Oral) | Resp 15 | Ht 1.676 m (5' 6") | Wt 92.5 kg (204 lb) | SpO2 97% | BMI 32.93 kg/m? General: No acute distress HEENT: Normal oral mucosa, anicteric sclerae, NCAT Cardiovascular: RRR Lungs: Symmetric expansion, clear bilaterally Abdomen: Soft, NTND Musculoskeletal: No synovitis, normal muscle mass Genitourinary: Deferred Skin: No rash, no skin lesions Extremities: No clubbing, no cyanosis, no lower extremity edema Neuro: AAOx3, no focal deficits Psych: Normal affect LABS - reviewed pertinent labs as below: CBC BMP PT/INR WBC (10*3/?L) Date Value 10/20/2024 7.24 NA (mmol/L) Date Value 10/20/2024 140 No results found for: "PT" RBC (10*6/?L) Date Value 10/20/2024 4.47 K (mmol/L) Date Value 10/20/2024 4.1 No results found for: "PTINR" PLT (10*3/?L) Date Value 10/20/2024 297 CALCIUM (mg/dL) Date Value 10/20/2024 9.5 HGB (g/dL) Date Value 10/20/2024 13.0 CL (mmol/L) Date Value 10/20/2024 107 aPTT HCT (%) Date Value 10/20/2024 40.4 BUN (mg/dL) Date Value 10/20/2024 15 No results found for: "APTTPAT" CREATININE (mg/dL) Date Value 10/20/2024 0.78 IMAGING - reviewed, pertinent results as below: Hospital Encounter on 10/20/24 XR Chest 1 vw Narrative EXAM: XR CHEST 1 VW HISTORY: 64 years-old Female with chest pain . TECHNIQUE: Single frontal view of the chest. COMPARISON: None FINDINGS: Lungs and pleura: Low lung volume likely due to poor inspiratory effort. No focal opacities, pleural effusion or pneumothorax. Heart/Mediastinum: The cardiac silhouette appears at the upper limits of normal accounting for technique and degree of inspiration. Bones and soft tissues: No acute osseous abnormality. Impression No radiographic evidence of acute cardiopulmonary process. Preliminary Report Dictated by Resident: Taniya Canchola 11/23/23 Procedures Performed: 1. Selective coronary angiogram. 2. Left heart catheterization. 3. PCI of severe mid to distal large OM branch, used 3.5 x 12 mm Synergy drug-eluting stent. Findings: 1. Left main is very large and normal. 2. LAD; large vessel, proximal segment appears to be normal. In the mid segment, there is diffuse 30% to 40% stenosis. The diagonal branch is small, but normal. 3. Left circumflex is very large vessel, codominant, proximal 30% and then the circ itself becomes small after the OM takeoff, but the OM is very large. It is a 4.0 vessel and in the mid to distal, there is a focal 80% stenosis, very hazy, likely the culprit, and placed a 3.5 x 12 mm Synergy drug-eluting stent. Excellent results. 4. RCA, it is moderate size, codominant with diffuse mid 60% stenosis. 5. Normal LVEDP at 7 mmHg. Conclusions: 1. Severe OM1 branch stenosis, likely the culprit, status post successful PCI as above. 2. Moderate coronary artery disease elsewhere. Recommendations: 1. Aspirin, Plavix, high-dose statin. 2. Plan for outpatient stress test in 1 month. If there is a perfusion defect in the RCA territory, then bring her back for PCI. ASSESSMENT: 1. Chest pain rule out acute syndrome 2. History of CAD status post stent in the left circumflex with additional atherosclerotic disease in the right coronary-60%; mid LAD-40%; 3. Hypertension 4. Hyperlipidemia PLAN: 1. Chest pain rule out acute coronary syndrome; patient with history of CAD with stent placement in the left circumflex in November 2023 at [facility]. 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 However, she states she has been taking her Plavix religiously. She is also on aspirin and statin therapy which she has also been taking. Currently she was seen in the ER and her EKG and troponins have been negative. Will repeat troponins in a couple of hours and will get an echocardiogram. Cardiology consultation 2. Hypertension/hyperlipidemia; resume home medications. Patient on amlodipine and Lipitor. LDL this a.m. as well. DVT prophylaxis: enoxaparin Stress ulcer prophylaxis: pantoprazole Code status: FULL Advanced Care Planning (Z71.89) Above assessment and plan discussed at length with patient, patient expressed full understanding. Questions and concerned addressed. Surrogate decision maker: NO Level of care expected after discharge: HOME Time spent: 3 minutes discussing the advanced care plan Smoking Cessation: (Z71.6) Tobacco user?: NO Patient will require observation [place] [employer] was verified during stay Suni Valencia MD [facility] Notes Date/Time Note Provider Source 2024-10-20 14:30:15 Problem: Falls, Risk of Goal: Absence of falls 10/20/2024 1430 by Gege Simms RN Outcome: Adequate for discharge 10/20/2024 1146 by Gege Simms RN Outcome: Progressing as expected 10/20/2024 1144 by Gege Simms RN Outcome: Progressing as expected Problem: Pain Goal: Control of pain at or below patient's documented comfort goal 10/20/2024 1430 by Gege Simms RN Outcome: Adequate for discharge 10/20/2024 1146 by Gege Simms RN Outcome: Progressing as expected 10/20/2024 1144 by Gege Simms RN Outcome: Progressing as expected Goal: Reduction in pain sensation 10/20/2024 1430 by Gege Simms RN Outcome: Adequate for discharge 10/20/2024 1146 by Gege Simms RN Outcome: Progressing as expected 10/20/2024 1144 by Gege Simms RN Outcome: Progressing as expected Problem: Discharge Planning Goal: Adequate for discharge 10/20/2024 1430 by Gege Simms RN Outcome: Adequate for discharge 10/20/2024 1146 by Gege Simms RN Outcome: Progressing as expected 10/20/2024 1144 by Gege Simms RN Outcome: Progressing as expected Goal: Effective communication 10/20/2024 1430 by Gege Simms RN Outcome: Adequate for discharge 10/20/2024 1146 by Gege Simms RN Outcome: Progressing as expected 10/20/2024 1144 by Gege Simms RN Outcome: Progressing as expected Problem: Venous Thromboembolism, (actual or risk of) Goal: Absence of venous thromboembolism (Risk) 10/20/2024 1430 by Gege Simms RN Outcome: Adequate for discharge 10/20/2024 1146 by Gege Simms RN Outcome: Progressing as expected 10/20/2024 1144 by Gege Simms RN Outcome: Progressing as expected Problem: Discharge Planning Goal: Adequate for discharge 10/20/2024 1430 by Gege Simms RN Outcome: Adequate for discharge 10/20/2024 1146 by Gege Simms RN Outcome: Progressing as expected 10/20/2024 1144 by Gege Simms RN Outcome: Progressing as expected Goal: Adequate to move to next level of care 10/20/2024 1430 by Gege Simms RN Outcome: Adequate for discharge 10/20/2024 1146 by Gege Simms RN Outcome: Progressing as expected 10/20/2024 1144 by Gege Simms RN Outcome: Progressing as expected Goal: Knowledge of medication management 10/20/2024 1430 by Gege Simms RN Outcome: Adequate for discharge 10/20/2024 1146 by Gege Simms RN Outcome: Progressing as expected 10/20/2024 1144 by Gege Simms RN Outcome: Progressing as expected [facility] 2024-10-20 11:44:58 Problem: Falls, Risk of Goal: Absence of falls Outcome: Progressing as expected Problem: Pain Goal: Control of pain at or below patient's documented comfort goal Outcome: Progressing as expected Goal: Reduction in pain sensation Outcome: Progressing as expected Problem: Discharge Planning Goal: Adequate for discharge Outcome: Progressing as expected Goal: Effective communication Outcome: Progressing as expected Problem: Venous Thromboembolism, (actual or risk of) Goal: Absence of venous thromboembolism (Risk) Outcome: Progressing as expected Problem: Discharge Planning Goal: Adequate for discharge Outcome: Progressing as expected Goal: Adequate to move to next level of care Outcome: Progressing as expected Goal: Knowledge of medication management Outcome: Progressing as expected [facility] 2024-10-20 07:39:51 Report given to Shannon WRIGHT. E Dillard RN [facility] 2024-10-20 05:39:10 Pt arrives ambulatory to ED c/o sharp chest pain that goes through to her back, that began yesterday. She reports that she has blockages and her dr's are [facility] in [place]. [facility] 2024-10-20 05:35:00 Associated Order(s): EKG-12 Lead ONCE Pre-Procedure Diagnose(s): Chest pain, unspecified type Post-Procedure Diagnose(s): Chest pain, unspecified type [facility] Emergency Department Note Patient Name: Joy Soler Date of : 1960 64 year old female Treatment Room: TX1/PR1 Primary Care Physician: Enid Lopez Patient Escorted by: Self [9] Mode of Arrival: Personal means [1] EMS Treatment Prior to ED Arrival: BRADDER treatment: None Travel and Exposure Screening: Symptoms Does patient have any of these symptoms?: (not recorded) Exposure Screening Has patient had contact with someone with a communicable disease in the last month?: (not recorded) Diseases exposed to:: (not recorded) Is Patient ?: (not recorded) Exposure Date: (not recorded) Chief Complaint: Chief Complaint Patient presents with Chest Pain History of Present Illness: 64 y.o. female with CAD (stent, Aspirin/Plavix/Lipitor), HTN (Norvasc, HCTZ) ,Anxiety/BPD, Hep. C, chronic back pain, now with chest pain since yesterday, worse this a.m. prompting ED visitation. Patient reports chest pain radiated into back. Chart review--dilation of thoracic Aorta (mild fusiform aneurysmal dilation of the ascending thoracic aorta measuring 4.1 cm) Past Medical History/Immunizations: No past medical history on file. Tetanus received in last 5 years: No Allergies: No Known Allergies Past Social History: Substance & Sexual Activity No substance use or sexual activity history on file. Past Surgical History: No past surgical history on file. Review of Systems: Review of Systems Constitutional: Negative for chills and fever. HENT: Negative. Eyes: Negative. Respiratory: Negative. Breasts: Negative. Cardiovascular: Positive for chest pain. Gastrointestinal: Negative. Genitourinary: Negative. Musculoskeletal: Negative. Skin: Negative. Neurological: Negative. Psychiatric/Behavioral: The patient is nervous/anxious. Endocrine: Endocrine negative Physical Exam: ED Triage Vitals [10/20/24 0541] Weight 92.5 kg (204 lb) Actual or estimated Estimated by patient/family report Height 1.676 m (5' 6") BP (!) 160/108 Pulse 82 Resp 16 Temp 37.1 ?C (98.7 ?F) Temp source Oral SpO2 98 % Measured on Room air Physical Exam Vitals and nursing note reviewed. Constitutional: Appearance: Normal appearance. Comments: Somewhat anxious appearing HENT: Head: Normocephalic and atraumatic. Mouth/Throat: Mouth: Mucous membranes are moist. Eyes: Pupils: Pupils are equal, round, and reactive to light. Cardiovascular: Rate and Rhythm: Normal rate and regular rhythm. Pulses: Normal pulses. Heart sounds: Normal heart sounds. Pulmonary: Effort: Pulmonary effort is normal. No respiratory distress. Breath sounds: Wheezing present. Comments: Scant end expiratory wheezing, good air movement Abdominal: Palpations: Abdomen is soft. Musculoskeletal: General: Normal range of motion. Skin: General: Skin is warm. Capillary Refill: Capillary refill takes less than 2 seconds. Neurological: General: No focal deficit present. Mental Status: She is alert and oriented to person, place, and time. Psychiatric: Mood and Affect: Mood normal. Behavior: Behavior normal. Radiology: XR Chest 1 vw Preliminary Result EXAM: XR CHEST 1 VW HISTORY: 64 years-old Female with chest pain . TECHNIQUE: Single frontal view of the chest. COMPARISON: None FINDINGS: Lungs and pleura: Low lung volume likely due to poor inspiratory effort. No focal opacities, pleural effusion or pneumothorax. Heart/Mediastinum: The cardiac silhouette appears at the upper limits of normal accounting for technique and degree of inspiration. Bones and soft tissues: No acute osseous abnormality. IMPRESSION No radiographic evidence of acute cardiopulmonary process. Preliminary Report Dictated by Resident: Taniya Canchola Lab Results: Lab Results CBC WITH DIFF - Abnormal Result Value Ref Range WBC 7.24 4.30 - 11.10 10*3/?L RBC 4.47 3.93 - 5.25 10*6/?L HGB 13.0 11.6 - 15.0 g/dL HCT 40.4 35.7 - 45.2 % MCV 90.4 80.6 - 95.5 fL MCH 29.1 25.9 - 32.8 pg MCHC 32.2 31.6 - 35.1 g/dL RDW-SD 45.4 39.0 - 49.9 fL RDW-CV 13.6 12.0 - 15.5 % PLT 297 166 - 358 10*3/?L MPV 9.4 (*) 9.5 - 12.9 fL NRBC/100 WBC 0.0 0.0 - 10.0 /100 WBCs NRBC x10 3 <0.01 10*3/?L GRAN MAT (NEUT) % 49.1 % IMM GRAN % 0.70 % LYMPH % 37.8 % MONO % 8.8 % EOS % 2.8 % BASO % 0.8 % GRAN MAT x10 3 (ANC) 3.55 1.88 - 7.09 10*3/uL IMM GRAN x10 3 0.05 0.00 - 0.06 10*3/uL LYMPH x10 3 2.74 1.32 - 3.29 10*3/uL MONO x10 3 0.64 0.33 - 0.92 10*3/uL EOS x10 3 0.20 0.03 - 0.39 10*3/uL BASO x10 3 0.06 0.01 - 0.07 10*3/uL TROPONIN I - Normal TROPONIN I 0.009 <=0.034 ng/mL LIPASE - Normal LIPASE 87 0 - 220 U/L COMP. METABOLIC PANEL (05463) NA 140 135 - 145 mmol/L K 4.1 3.5 - 5.0 mmol/L CL 107 98 - 108 mmol/L CO2 TOTAL 26 23 - 31 mmol/L AGAP 7 2 - 16 BUN 15 7 - 23 mg/dL GLUCOSE 110 70 - 110 mg/dL CREATININE 0.78 0.50 - 1.04 mg/dL TOTAL BILI 0.5 0.1 - 1.1 mg/dL CALCIUM 9.5 8.6 - 10.6 mg/dL T PROTEIN 7.6 6.3 - 8.2 g/dL ALBUMIN 4.5 3.5 - 5.0 g/dL ALK PHOS 94 34 - 122 U/L ALTv 28 5 - 35 U/L AST(SGOT) 30 13 - 40 U/L eGFR 84.9 mL/min/1.73m2 EKG: If EKG completed, see Procedure Note. Orders and Treatments: Orders Placed This Encounter Procedures XR Chest [address] Thorax w contrast CT Abdomen pelvis w contrast Cbc with Diff Comp. Metabolic Panel (94246) Troponin I Lipase Orders Placed This Encounter Medications LORazepam (ATIVAN) injection 0.5 mg aspirin tablet 325 mg iopamidol (ISOVUE 370-500 mL) injection 80 mL famotidine (PEPCID (PF)) injection 20 mg First Provider Eval: ED Events Date/Time Event User Comments 10/20/2442 Medical Screening Begins SHAKEEL NERI MD -- 10/20/2442 First Provider Evaluation SHAKEEL NERI MD -- ED COURSE ED Course as of 10/20/24 0659 WedOct 20, 2024 0658 Pt is chest pain free. Has a little bit of back pain. Work up negative. CT pending [DN] ED Course User Index [DN] Benjamin Chi MD Diagnosis/Impression as of 10/20/24 0659 Chest pain, unspecified type Procedures: EKG-12 Lead ONCE Date/Time: 10/20/2024 5:55 AM Performed by: Shakeel Neri MD Authorized by: Shakeel Neri MD ECG interpreted by ED Physician in the absence of a park services specialist: yes Previous ECG: Previous ECG: Unavailable Interpretation: Interpretation: non-specific Rate: ECG rate: 81 ECG rate assessment: normal Rhythm: Rhythm: sinus rhythm Ectopy: Ectopy: none QRS: QRS axis: Normal QRS intervals: Normal QRS conduction: normal ST segments: ST segments: Normal T waves: T waves: normal MDM: Medical Decision Making Amount and/or Complexity of Data Reviewed Labs: ordered. Radiology: ordered. Risk OTC drugs. Prescription drug management. Parenteral controlled substances. A) Chest Pain, Anxiety Disposition/Condition: Pending lab and CT-r/out Dissection. Likely Inpatient Telemetry/Obs, r/out ACS, Cardiology consultation. ED Disposition None Discharge Medications: Patient's Medications No medications on file Electronically signed by: Shakeel Neri MD 10/20/24 0639 [facility] 2024-09-19 10:47:23 Chief Complaint Patient presents with Physical Fasting for labs. Would like to get a UA to rule of a UTI Jenelle Pierson LVN [facility]
[2025-03-06] MEDS ORDERED: MORPHINE 4 MG/ML SYR ONE ×2 (07:59→11:11)
[2025-03-06] MEDS ORDERED: ONDANSETRON 4 MG/2 ML VIAL ONE (07:59)
[2025-03-06] MEDS ORDERED: NITROGLYCERIN 0.4 MG/TAB SL ONE (08:00)
[2025-03-06 08:10] LABS: Absolute Eosinophils 0.2 K/uL (0-0.5); Absolute Monocytes 0.4 K/uL (0.1-1.3); Absolute Neutrophil 3.3 K/uL (1.8-8.0); Basophils % 0.8 % (0-1.3); Eosinophils % 2.7 % (0-4.4); Hematocrit 39.2 % (36.0-45.0); Hemoglobin 13.2 g/dL (12.0-15.0); Lymphocytes % 33.2 % (15.3-44.8); MCH 29.2 pg (27.0-35.0); MCHC 33.7 g/dL (32.0-36.0); MCV 86.4 fL (80-100); Monocytes % 7.2 % (3.3-12.3); Neutrophils % 56.1 % (41.7-73.7); Nucleated Red Blood Cells % 0.2 % (0-0); Platelets 264 thou/uL (152-406); RBC Red Blood Cell Count 4.53 M/uL (3.86-4.86); Red Cell Distribution Width 13.9 % (12.1-15.2)
[2025-03-06 08:15] LABS: PT Prothrombin Time 11.9 SECONDS (10-13.0); Protime INR 1.05
[2025-03-06 08:22] LABS: ALT/SGPT 20 U/L (13-56); AST/SGOT 11 U/L (15-37); Albumin 3.5 g/dL (3.4-5.0); Albumin/Globulin Ratio 0.9 (1.1-1.8); Alkaline Phosphatase 122 U/L (45-117); Anion Gap 9.6 mEq/L (5.0-15.0); BUN Blood Urea Nitrogen 12 mg/dL (7-18); Bicarbonate 28 mEq/L (21-32); Bilirubin Total 0.3 mg/dL (0.2-1.0); Globulin 3.8 g/dL (2.3-3.5); Glomerular Filtration Rate 70 ml/min (=/>90); Glucose Level 106 mg/dL (74-106); NT PRO-BNP 43 pg/mL (<125); Potassium 3.6 mEq/L (3.5-5.1); Protein, Total 7.3 g/dL (6.4-8.2); Sodium Level 139 mEq/L (136-145); Troponin High Sensitivity 6.4 pg/mL (<58.9)
[2025-03-06 08:29] LABS: Bilirubin Direct < 0.2 mg/dL (0-0.2); Bilirubin Indirect, Calculated 0.1 mg/dL (0.2-0.8)
--- NOTE | 2025-03-06 08:38 | RAD REPORT ---
EXAM:Chest Angio CLINICAL HISTORY: Chest pain TECHNIQUE: 100 cc 370 Isovue administered intravenously. This examination was performed according to an angiographic protocol with 3D post-processing. This involves 3D reconstructions, MIPs, volume rendered images and/or shaded surface rendering. One or more of the following dose reduction techniqu es were used: Automated exposure control, adjustment of the mA and/or kV according to patient size, and/or iterative reconstruction. Unless otherwise specified, incidental findings do not require dedic ated imaging follow-up. [id number]. COMPARISON: July 2024 FINDINGS: A pulmonary embolus is not seen. An aortic dissection not noted.. 4.3 cm aortic root aneurysm.. In retrospect, this is what it measured on the prior exam. No periaorti c hematoma. No pleural effusion. No pericardial effusion. No lung consolidation. IMPRESSION: No evidence of a pulmonary embolism 4.3 cm aortic root aneurysm unchanged from prior exam
--- NOTE | 2025-03-06 10:11 | RAD REPORT ---
Procedure: Chest Single View HISTORY: Chest pain COMPARISON: 2023 FINDINGS: The lungs appear clear of acute infiltrate. No significant pleural effusion noted. The heart is normal size. IMPRESSION: No acute abnormality is displayed.
--- NOTE | 2025-03-06 10:23 | EDPHYS ---
[facility] Name: Joy Soler Age: 64 yrs Sex: Female : 1960 Arrival Date: 03/06/2025 Time: 07:31 Bed 4 Private MD: ED Physician Bertin Montes De Oca HPI: 03/06 07:51 This 64 yrs old Black Female presents to ER via Ambulatory with complaints of Chest sp3 Pain > 30 y/o. 07:51 64-year-old female with history of hypertension, hyperlipidemia, coronary artery sp3 disease with 1 stent placed, and known thoracic aortic aneurysm measuring 4.1 cm presents to the ED with sudden onset of sharp chest pain about 45 minutes prior to arrival. Pain is radiating to the back. She denies any other symptoms including shortness of breath, cough, fever, abdominal pain, vomiting, diarrhea, syncope, numbness or tingling in the arms, or any other signs or symptoms on ROS at this time.. Historical: - Allergies: 07:41 No Known Drug Allergies; ph - PMHx: 07:41 High Cholesterol; Hypertension; ph - PSHx: 07:41 Coronary Stent placement; ph - Immunization history:: Adult Immunizations unknown. - Infectious Disease History:: Denies. - Social history:: Smoking status: Patient denies any tobacco usage or history of. ROS: 07:54 Constitutional: Negative for fever, chills, and weight loss, Eyes: Negative for injury, sp3 pain, redness, and discharge, Neck: Negative for injury, pain, and swelling, Respiratory: Negative for shortness of breath, cough, wheezing, and pleuritic chest pain, Abdomen/GI: Negative for abdominal pain, nausea, vomiting, diarrhea, and constipation, Back: Negative for injury and pain, MS/Extremity: Negative for injury and deformity, Skin: Negative for injury, rash, and discoloration, Neuro: Negative for headache, weakness, numbness, tingling, and seizure, Psych: Negative for depression, anxiety, suicide ideation, homicidal ideation, and hallucinations, Allergy/Immunology: Negative for hives, rash, and allergies, Endocrine: Negative for neck swelling, polydipsia, polyuria, polyphagia, and marked weight changes, Hematologic/Lymphatic: Negative for swollen nodes, abnormal bleeding, and unusual bruising, 07:54 All other systems are negative, Exam: 07:54 Constitutional: This is a well developed, well nourished patient who is awake, alert, sp3 and in no acute distress. Head/Face: Normocephalic, atraumatic. Eyes: Pupils equal round and reactive to light, extra-ocular motions intact. Lids and lashes normal. Conjunctiva and sclera are non-icteric and not injected. Cornea within normal limits. Periorbital areas with no swelling, redness, or edema. ENT: Nares patent. No nasal discharge, no septal abnormalities noted. External auditory canals are clear. Oropharynx with no redness, swelling, or masses, exudates, or evidence of obstruction, uvula midline. Mucous membranes moist. Neck: Trachea midline, no thyromegaly or masses palpated, and no cervical lymphadenopathy. Supple, full range of motion without nuchal rigidity, or vertebral point tenderness. No Meningismus. Chest/axilla: Normal chest wall appearance and motion. Nontender with no deformity. No lesions are appreciated. Cardiovascular: Regular rate and rhythm with a normal S1 and S2. No gallops, murmurs, or rubs. Normal PMI, no JVD. No pulse deficits. Respiratory: Lungs have equal breath sounds bilaterally, clear to auscultation and percussion. No rales, rhonchi or wheezes noted. No increased work of breathing, no retractions or nasal flaring. Abdomen/GI: Soft, non-tender, with normal bowel sounds. No distension or tympany. No guarding or rebound. No evidence of tenderness throughout. Back: No spinal tenderness. No costovertebral tenderness. Full range of motion. Skin: Warm, dry with normal turgor. Normal color with no rashes, no lesions, and no evidence of cellulitis. MS/ Extremity: Pulses equal, no cyanosis. Neurovascular intact. Full, normal range of motion. Neuro: Awake and alert, GCS 15, oriented to person, place, time, and situation. Cranial nerves II-XII grossly intact. Motor strength 5/5 in all extremities. Sensory grossly intact. Cerebellar exam normal. Normal gait. Psych: Awake, alert, with orientation to person, place and time. Behavior, mood, and affect are within normal limits. 07:54 ECG was reviewed by the Attending Physician. EKG demonstrates normal sinus rhythm at 70 bpm with normal intervals, normal QRS, normal axis, and nonspecific diffuse ST/T changes without evidence of acute ischemia. Vital Signs: 07:39 BP 144 / 99; Pulse 78; Resp 18; Temp 97.5; Pulse Ox 100% on R/A; Weight 104.33 kg; ph Height 5 ft. 6 in. ; Pain 7/10; 08:23 BP 127 / 85; Pulse 68; Resp 18; Pulse Ox 98% on R/A; ph 09:33 BP 124 / 80; Pulse 62; Resp 18; Pulse Ox 100% on R/A; ph 10:31 BP 117 / 80; Pulse 55; Resp 18; Pulse Ox 98% on R/A; ph 11:41 BP 132 / 98; Pulse 74; Resp 18; Temp 97.6; Pulse Ox 98% on R/A; ph 07:39 Body Mass Index 37.12 (104.33 kg, 167.64 cm) ph 07:39 Pain Scale: Adult ph MDM: 07:33 Medical Screening Exam initiated sp3 07:54 Data reviewed: vital signs, nurses notes, old medical records, lab test result(s), EKG, sp3 radiologic studies. ED course: 64-year-old female with PMH above presents with chest pain. Differential diagnosis includes acute coronary syndrome, aortic aneurysm progression, pleurisy, mediastinitis, skeletal pain, gastritis, among others. Workup will include chest x-ray, CT scan of the chest, EKG and general labs. Morphine and nitroglycerin for pain control. Disposition probable admission.. 10:22 ED course: Aortic aneurysm stable at 4.3 cm. Will admit observation for further workup sp3 per inpatient team.. 03/06 07:37 Order name: Basic Metabolic Panel; Complete Time: 08:36 sp3 03/06 07:37 Order name: CBC with Diff; Complete Time: 08:36 sp3 03/06 07:37 Order name: LFT's; Complete Time: 08:36 sp3 03/06 07:37 Order name: Magnesium; Complete Time: 08:36 sp3 03/06 07:37 Order name: NT PRO-BNP; Complete Time: 08:36 sp3 03/06 07:37 Order name: PT-INR; Complete Time: 08:36 sp3 03/06 07:37 Order name: Troponin HS; Complete Time: 08:36 sp3 03/06 10:53 Order name: Basic Metabolic Panel EDMS 03/06 10:53 Order name: Basic Metabolic Panel EDMS 03/06 10:53 Order name: Basic Metabolic Panel EDMS 03/06 10:53 Order name: Basic Metabolic Panel EDMS 03/06 10:53 Order name: CBC with Automated Diff EDMS 03/06 10:53 Order name: CBC with Automated Diff EDMS 03/06 10:53 Order name: CBC with Automated Diff EDMS 03/06 10:53 Order name: CBC with Automated Diff EDMS 03/06 10:53 Order name: Troponin High Sensitivity EDMS 03/06 10:53 Order name: Troponin High Sensitivity EDMS 03/06 10:53 Order name: Troponin High Sensitivity EDMS 03/06 07:37 Order name: XRAY Chest (1 view); Complete Time: 10:18 sp3 03/06 07:42 Order name: CT Chest Angio; Complete Time: 10:18 sp3 03/06 07:37 Order name: Cardiac monitoring; Complete Time: 07:42 sp3 03/06 07:37 Order name: EKG - Nurse/Tech; Complete Time: 07:42 sp3 03/06 07:37 Order name: IV Saline Lock; Complete Time: 08:05 sp3 03/06 07:37 Order name: Labs collected and sent; Complete Time: 08:05 sp3 03/06 07:37 Order name: O2 Per Protocol; Complete Time: 07:42 sp3 03/06 07:37 Order name: O2 Sat Monitoring; Complete Time: 07:42 3 Administered Medications: 08:08 Drug: Nitroglycerin Sublingual 0.4 mg Sublingual once Route: Sublingual; ph 09:35 Follow up: Response: No adverse reaction; Pain is decreased ph 08:20 Drug: morphine IVP or IV 4 mg IVP once over 4 mins Route: IVP; Infused Over: 4 mins; ph Site: right forearm; 09:35 Follow up: Response: No adverse reaction; Pain is decreased ph 08:20 Drug: Ondansetron IVP 4 mg IVP once; over 2 minutes Route: IVP; Site: right forearm; ph 09:35 Follow up: Response: No adverse reaction ph 11:25 Drug: morphine IVP or IV 4 mg IVP once over 4 mins Route: IVP; Infused Over: 4 mins; ph Site: right forearm; 11:42 Follow up: Response: No adverse reaction; Pain is decreased ph Disposition Summary: 03/06/25 10:23 Hospitalization Ordered Notes: Hospitalization Status: Observation sp3 Provider: Manuel Samson sp3 Condition: Stable sp3 Problem: an acute exacerbation sp3 Symptoms: are unchanged sp3 Bed/Room Type: Standard sp3 Location: Telemetry/MedSurg (observation)(03/06/25 12:53) bd Room Assignment: [facility] [place][note 2](03/06/25 12:53) bd Diagnosis - Chest pain, unspecified sp3 Forms: - Medication Reconciliation Form sp3 - SBAR form sp3 - Leadership Thank You Letter sp3 Signatures: Dispatcher [employer] EDMS Mirna Huerta Lee, CHANGE MANAGEMENT-C CHANGE MANAGEMENT-Cla1 Natalie Garcia, RN RN ph Bertin Montes De Oca MD MD sp3 Tasia Goins RN RN kb3 Corrections: (The following items were deleted from the chart) 07:37 07:37 BASIC METABOLIC PANEL+C.LAB.BRZ ordered. EDMS EDMS 07:37 07:37 CBC+H.LAB.BRZ ordered. EDMS EDMS 07:37 07:37 HEPATIC FUNCTION+C.LAB.BRZ ordered. EDMS EDMS 07:37 07:37 MAGNESIUM+C.LAB.BRZ ordered. EDMS EDMS 07:37 07:37 PROBNP+C.LAB.BRZ ordered. EDMS EDMS 07:37 07:37 PROTIME (+INR)+COAG.LAB.BRZ ordered. EDMS EDMS 07:37 07:37 Troponin High Sensitivity+C.LAB.BRZ ordered. EDMS EDMS 07:37 07:37 Chest Single View+RAD.RAD.BRZ ordered. EDMS EDMS 11:42 10:23 Telemetry/MedSurg (observation) sp3 kb3 11:42 10:23 sp3 kb3 12:53 11:42 [facility] ER HOLD kb3 bd 12:53 11:42 ERHOLD- kb3 bd
--- NOTE | 2025-03-06 10:23 | ER ---
Nurse's Notes [facility] Name: Joy Soler Age: 64 yrs Sex: Female : 1960 Arrival Date: 03/06/2025 Time: 07:31 Bed 4 Private MD: Diagnosis: Chest pain, unspecified Presentation: 03/06 07:39 Chief complaint: Patient states: Chest pain that radiates to back, started this morning ph while talking on the phone, also reports some SOB, denies dizziness or nausea. Coronavirus screen: Vaccine status: Patient reports receiving the 1st dose of the Covid vaccine. Ebola Screen: No symptoms or risks identified at this time. Initial Sepsis Screen: Does the patient meet any 2 criteria? No. Patient's initial sepsis screen is negative. Does the patient have a suspected source of infection? No. Patient's initial sepsis screen is negative. Risk Assessment: Do you want to hurt yourself or someone else? Patient reports no desire to harm self or others. Onset of symptoms was March 06, 2025. 07:39 Method Of Arrival: Ambulatory ph 07:39 Acuity: LEIGH 2 ph Triage Assessment: 07:41 General: Appears in no apparent distress. uncomfortable, Behavior is cooperative, ph appropriate for age, anxious. Pain: Complains of pain in anterior aspect of right upper chest Pain radiates to back. Neuro: Level of Consciousness is awake, alert, obeys commands, Oriented to person, place, time, situation. Cardiovascular: Capillary refill < 3 seconds in bilateral fingers Patient's skin is warm and dry. Respiratory: Airway is patent Respiratory effort is even, unlabored. GI: No signs and/or symptoms were reported involving the gastrointestinal system. Derm: Skin is pink, warm \T\ dry. Musculoskeletal: Circulation, motion, and sensation intact. Range of motion: intact in all extremities. Historical: - Allergies: 07:41 No Known Drug Allergies; ph - PMHx: 07:41 High Cholesterol; Hypertension; ph - PSHx: 07:41 Coronary Stent placement; ph - Immunization history:: Adult Immunizations unknown. - Infectious Disease History:: Denies. - Social history:: Smoking status: Patient denies any tobacco usage or history of. Screenin:08 [facility] ED Fall Risk Assessment (Adult) History of falling in the last 3 months, ph including since admission No falls in past 3 months (0 pts) Confusion or Disorientation No (0 pts) Intoxicated or Sedated No (0 pts) Impaired Gait No (0 pts) Mobility Assist Device Used No (0 pt) Altered Elimination No (0 pt) Score/Fall Risk Level 0 - 2 = Low Risk Oriented to surroundings, Maintained a safe environment, Hourly rounding (assess needs \T\ fall precautionary measures) done. Abuse screen: Denies threats or abuse. Denies injuries from another. Nutritional screening: No deficits noted. Tuberculosis screening: No symptoms or risk factors identified. Assessment: 08:11 General: SEE TRIAGE ASSESSMENT. ph 09:34 Reassessment: Patient appears in no apparent distress at this time. Patient and/or ph family updated on plan of care and expected duration. Pain level reassessed. Patient is alert, oriented x 3, equal unlabored respirations, skin warm/dry/pink. Patient states symptoms have improved. 13:03 Reassessment: Report faxed to 2nd floor, no answer at desk or on charge nurse phone. ph Vital Signs: 07:39 BP 144 / 99; Pulse 78; Resp 18; Temp 97.5; Pulse Ox 100% on R/A; Weight 104.33 kg; ph Height 5 ft. 6 in. ; Pain 7/10; 08:23 BP 127 / 85; Pulse 68; Resp 18; Pulse Ox 98% on R/A; ph 09:33 BP 124 / 80; Pulse 62; Resp 18; Pulse Ox 100% on R/A; ph 10:31 BP 117 / 80; Pulse 55; Resp 18; Pulse Ox 98% on R/A; ph 11:41 BP 132 / 98; Pulse 74; Resp 18; Temp 97.6; Pulse Ox 98% on R/A; ph 07:39 Body Mass Index 37.12 (104.33 kg, 167.64 cm) ph 07:39 Pain Scale: Adult ph Vitals: 08:23 Cardiac Rhythm Assessment Sinus rhythm. ph 10:31 Cardiac Rhythm Assessment Sinus felicitas. ph ED Course: 07:33 Patient arrived in ED. ss 07:33 Bertin Montes De Oca MD is Attending Physician. sp3 07:39 Natalie Garcia, RN is Primary Nurse. ph 07:40 EKG done, by ED staff, reviewed by Bertin Monte sDe Oca MD. ph 07:41 Triage completed. ph 07:41 Arm band placed on Patient placed in an exam room, on a stretcher, on excel analyst, ph on pulse oximetry. 08:06 Inserted saline lock: 22 gauge in right forearm, using aseptic technique. Blood bp collected. Flushed with 10 mL NS. 08:09 XRAY Chest (1 view) In Process Unspecified. EDMS 08:09 Patient maintains SpO2 saturation greater than 95% on room air. ph 08:10 Patient has correct armband on for positive identification. Bed in low position. Call ph light in reach. Side rails up X 1. Client placed on continuous cardiac and pulse oximetry monitoring. NIBP monitoring applied. artificial flowers dyer on. Door closed. Noise minimized. Warm blanket given. 08:15 CT Chest Angio In Process Unspecified. EDMS 09:37 No provider procedures requiring assistance completed. ph 10:22 Manuel Samson MD is Hospitalizing Provider. sp3 11:41 Patient admitted, IV remains in place. ph Administered Medications: 08:08 Drug: Nitroglycerin Sublingual 0.4 mg Sublingual once Route: Sublingual; ph 09:35 Follow up: Response: No adverse reaction; Pain is decreased ph 08:20 Drug: morphine IVP or IV 4 mg IVP once over 4 mins Route: IVP; Infused Over: 4 mins; ph Site: right forearm; 09:35 Follow up: Response: No adverse reaction; Pain is decreased ph 08:20 Drug: Ondansetron IVP 4 mg IVP once; over 2 minutes Route: IVP; Site: right forearm; ph 09:35 Follow up: Response: No adverse reaction ph 11:25 Drug: morphine IVP or IV 4 mg IVP once over 4 mins Route: IVP; Infused Over: 4 mins; ph Site: right forearm; 11:42 Follow up: Response: No adverse reaction; Pain is decreased ph Medication: 08:08 VIS not applicable for this client. ph Outcome: 10:23 Decision to Hospitalize by Provider. sp3 11:42 Admitted to ER Hold. Please see [facility] for further documentation. ph 11:42 Condition: stable 11:42 Instructed on the need for admit, 13:31 Patient left the ED. bc6 Signatures: Dispatcher [employer] EDMS Angelica Saeed RN RN Natalie Garcia RN RN Alfredo Nielson RN RN bp Bertin Montes De Oca MD MD sp3 Melissa Arteaga 6
[2025-03-06] MEDS ORDERED: ONDANSETRON 4 MG/2 ML VIAL IV PRN (10:49)
[2025-03-06] MEDS ORDERED: NITROGLYCERIN 0.4 MG/TAB SL PRN (10:51)
[2025-03-06 12:13] VITALS: BMI 37.1
--- NOTE | 2025-03-06 15:59 | P.HP ---
Certification for Inpatient Patient will require the following post-hospital care: None Practitioner: I am a practitioner with admitting privileges, knowledge of patient current condition, hospital course, and medical plan of care. Services: Services provided to patient in accordance with Admission requirements found in Title 42 Section 412.3 of the Code of Federal Regulations Patient History Date of Service: 03/06/25 Reason for admission: Chest pain History of Present Illness: 64-year-old female with history of hypertension, hyperlipidemia, CAD with previous stent presents to the emergency department with chief complaint of chest pain. She has a known history of a thoracic ascending aortic aneurysm which was imaged and remained stable, no PE was noted also on CT. her initial high-sensitivity troponin was within normal limits and EKG without STEMI criteria present. She also reported some shortness of breath at the time. ED provider wishes to admit patient under observation for ACS rule out. She was supposed to have a heart catheterization in December but was unable to have this done outpatient. Allergies No Known Drug Allergies Allergy (Unverified 07/04/15 19:27) Unknown No Known Allergies Allergy (Uncoded 08/03/17 17:44) Unknown Home Medications: Amlodipine [Norvasc*] 5 mg PO DAILY 11/23/23 Aspirin [Aspirin EC 81 MG] 81 mg PO DAILY 30 Days #30 tab 11/23/23 hydroCHLOROthiazide [Hydrochlorothiazide] 12.5 mg PO DAILY 11/23/23 Atorvastatin Calcium [Lipitor] 40 mg PO BEDTIME 03/06/25 LORazepam [Ativan] 1 mg PO BID PRN 03/06/25 - Past Medical/Surgical History Diabetic: No -: CVA -: Hypertension -: Hyperlipidemia -: hysterectomy -: appendectomy -: tubal ligation Psychosocial/ Personal History: Retired, lives at home alone - Family History Father Notes: Brain aneurysm - Social History Alcohol use: No CD- Drugs: No Caffeine use: Yes Place of Residence: Home Review of Systems 10-point ROS is otherwise unremarkable Respiratory: Shortness of Breath Cardiovascular: Chest Pain Physical Examination - Vital Signs Temperature: 97.5 F Blood Pressure: 126/81 Pulse: 65 Respirations: 18 Pulse Ox (%): 97 - Physical Exam General: Alert, In no apparent distress, Oriented x3 HEENT: Atraumatic, PERRLA Neck: Supple, 2+ carotid pulse no bruit Respiratory: Clear to auscultation bilaterally, Normal air movement Cardiovascular: Regular rate/rhythm, Normal S1 S2 Gastrointestinal: Normal bowel sounds, No tenderness Musculoskeletal: No tenderness Integumentary: No rashes Neurological: Normal speech, Normal strength at 5/5 x4 extr, Normal affect - Studies Laboratory Data (last 24 hrs) 03/06/25 03/06/25 03/06/25 07:57 07:57 07:57 WBC 6.00 Hgb 13.2 Hct 39.2 Plt Count 264 PT 11.9 INR 1.05 Sodium 139 Potassium 3.6 BUN 12 Creatinine 0.92 Glucose 106 Magnesium 2.0 Total Bilirubin 0.3 AST 11 L ALT 20 Alkaline Phosphatase 122 H Assessment and Plan - Plan Assessment: Chest pain rule out ACS Hypertension Hyperlipidemia Plan: Chest pain rule out ACS Trend troponins and monitor on telemetry Cardiology consulted Was supposed to have an outpatient cath in December but did not have it Continue aspirin, statin As needed pain medications Hypertension Hyperlipidemia Continue home medications DVT PPX: Lovenox Code status: Full Discharge Plan: Home Plan to discharge in: 24 Hours - Advance Directives Does patient have a Living Will: No Does patient have a Durable POA for Healthcare: No - Code Status/Comfort Care Code Status Assessed: Yes (Full code) Critical Care: No Time Spent Managing Pts Care (In Minutes): 61
[2025-03-06] MEDS: ACETAMINOPHEN 500 MG TAB PO PRN (16:30)
[2025-03-06] MEDS: ATORVASTATIN 40 MG TAB PO SCH (19:48)
[2025-03-07 07:11] LABS: Absolute Eosinophils 0.2 K/uL (0-0.5); Absolute Lymphocytes (CBC) 1.8 K/uL (0.7-4.9); Absolute Monocytes 0.5 K/uL (0.1-1.3); Absolute Neutrophil 4.1 K/uL (1.8-8.0); Basophils % 0.6 % (0-1.3); Eosinophils % 2.5 % (0-4.4); Hemoglobin 13.5 g/dL (12.0-15.0); Lymphocytes % 27.8 % (15.3-44.8); MCH 29.2 pg (27.0-35.0); MCHC 33.8 g/dL (32.0-36.0); MCV 86.2 fL (80-100); MPV 7.5 fL (7.6-11.3); Monocytes % 7.2 % (3.3-12.3); Neutrophils % 61.9 % (41.7-73.7); Platelets 264 thou/uL (152-406); RBC Red Blood Cell Count 4.64 M/uL (3.86-4.86); Red Cell Distribution Width 13.9 % (12.1-15.2)
[2025-03-07 07:22] LABS: Anion Gap 8.8 mEq/L (5.0-15.0); Potassium 3.8 mEq/L (3.5-5.1)
[2025-03-07] MEDS: ENOXAPARIN 40 MG/0.4 ML SQ SCH (08:32)
[2025-03-07] MEDS: AMLODIPINE 5 MG TAB PO SCH (08:33)
[2025-03-07] MEDS: hydroCHLOROthiazide 12.5 MG CAP PO SCH (08:33)
[2025-03-07] MEDS: ASPIRIN EC 81 MG TAB PO SCH (08:33)
[2025-03-07] MEDS: ALPRAZOLAM 1 MG TABLET PO PRN (08:35)
[2025-03-07 12:42] VITALS: O2SAT 93
[2025-03-07] MEDS: POTASSIUM 25 MEQ EFFERV TAB PO ONE (14:42)
--- NOTE | 2025-03-07 14:54 | P.PN ---
Date of Service: 03/07/25 Subjective: No acute events overnight Intermittent/occasional chest discomfort ROS: 10 point ROS as noted above, otherwise negative Physical exam GEN: Alert, oriented, NAD HEENT: Normal conjunctiva, sclera anicteric CV: Regular rate and rhythm, no edema Pulm: Nonlabored respirations on room air ABD: Soft, nontender, nondistended MSK: No joint tenderness Integumentary: No rashes Neuro: Normal speech, normal affect Vitals reviewed Assessment: Chest pain rule out ACS Hypertension Hyperlipidemia Plan: Chest pain rule out ACS Troponins negative x 3 Cardiology consulted Was supposed to have an outpatient cath in December but did not have it Continue aspirin, statin As needed pain medications 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
[2025-03-07 16:45] VITALS: BP 141/82; TEMP 97.7
--- NOTE | 2025-03-07 17:38 | P.DS ---
Admission Date: 03/06/25 Discharge Date: 03/07/25 Disposition: ROUTINE DISCHARGE Discharge Condition: GOOD Reason for Admission: Chest pain Brief History of Present Illness: 64-year-old female with history of hypertension, hyperlipidemia, CAD with previous stent presents to the emergency department with chief complaint of chest pain. She has a known history of a thoracic ascending aortic aneurysm which was imaged and remained stable, no PE was noted also on CT. her initial high-sensitivity troponin was within normal limits and EKG without STEMI criteria present. She also reported some shortness of breath at the time. ED provider wishes to admit patient under observation for ACS rule out. She was supposed to have a heart catheterization in December but was unable to have this done outpatient. Hospital Course: Assessment: Chest pain rule out ACS Hypertension Hyperlipidemia Patient was admitted to the hospital under observation for ACS rule out. Troponins were trended and negative x 3. She was seen by her precision mechanical instrument maker in the hospital who recommends outpatient evaluation with a stress test. Patient is stable for discharge outpatient follow-up with cardiology. Continue home medications as previously prescribed follow-up with your primary care doctor and cardiology in 1 to 2 weeks Vital Signs/Physical Exam: Temp Pulse Resp BP Pulse Ox 97.7 F 78 16 141/82 H 99 03/07/25 16:00 03/07/25 16:00 03/07/25 16:00 03/07/25 16:00 03/07/25 16:00 General: Alert, In no apparent distress, Oriented x3 HEENT: Atraumatic, PERRLA Neck: Supple, JVD not distended Respiratory: Clear to auscultation bilaterally, Normal air movement Cardiovascular: Regular rate/rhythm, Normal S1 S2 Gastrointestinal: Normal bowel sounds, No tenderness Musculoskeletal: No tenderness Neurological: Normal speech, Normal affect Laboratory Data at Discharge: WBC 6.50 thou/uL (4.3-10.9) 03/07/25 06:55 Hgb 13.5 g/dL (12.0-15.0) 03/07/25 06:55 Hct 40.0 % (36.0-45.0) 03/07/25 06:55 Plt Count 264 thou/uL (152-406) 03/07/25 06:55 PT 11.9 SECONDS (10-13.0) 03/06/25 07:57 INR 1.05 03/06/25 07:57 Sodium 139 mEq/L (136-145) 03/07/25 06:55 Potassium 3.8 mEq/L (3.5-5.1) 03/07/25 06:55 BUN 14 mg/dL (7-18) 03/07/25 06:55 Creatinine 0.88 mg/dL (0.55-1.02) 03/07/25 06:55 Glucose 113 mg/dL (74-106) H 03/07/25 06:55 Magnesium 2.0 mg/dL (1.6-2.4) 03/06/25 07:57 Total Bilirubin 0.3 mg/dL (0.2-1.0) 03/06/25 07:57 AST 11 U/L (15-37) L 03/06/25 07:57 ALT 20 U/L (13-56) 03/06/25 07:57 Alkaline Phosphatase 122 U/L (45-117) H 03/06/25 07:57 Home Medications: Amlodipine [Norvasc*] 5 mg PO DAILY 11/23/23 Aspirin [Aspirin EC 81 MG] 81 mg PO DAILY 30 Days #30 tab 11/23/23 hydroCHLOROthiazide [Hydrochlorothiazide] 12.5 mg PO DAILY 11/23/23 Atorvastatin Calcium [Lipitor] 40 mg PO BEDTIME 03/06/25 LORazepam [Ativan] 1 mg PO BID PRN 03/06/25 Physician Discharge Instructions: Patient was admitted to the hospital under observation for ACS rule out. Troponins were trended and negative x 3. She was seen by her precision mechanical instrument maker in the hospital who recommends outpatient evaluation with a stress test. Patient is stable for discharge outpatient follow-up with cardiology. Continue home medications as previously prescribed follow-up with your primary care doctor and cardiology in 1 to 2 weeks Diet: AHA Activity: Ad carie Followup: Keaton Morillo MD [Primary Care Provider] - 1 Week Time spent managing pt's care (in minutes): 46
--- NOTE | 2025-03-13 12:50 | EKG ---
Test Date: 2025-03-06 Test Time: 07:42:41 Stock Worker And Deliverer: ROBERTO MEASUREMENT RESULTS: Intervals: Rate: 69 DC: 160 QRSD: 82 QT: 398 QTc: 426 [place]: P: 68 DC: 160 QRS: 3 T: 50 INTERPRETIVE STATEMENTS: Normal sinus rhythm Possible Anterior infarct, age undetermined Abnormal ECG Compared to ECG 07/20/2024 09:19:48 Myocardial infarct finding now present Atrial premature complex(es) no longer present ST (T wave) deviation no longer present Electronically Signed On 03-13-25 12:33:45 CDT by Lawrence Reyna
== END 2025-03-07 17:57 | disposition home or self-care (01) ==
LOC: ER 07:31 → ERHOLD 10:49 → 2ND 13:26
PROVIDERS: ADMIT Hospitalist; ATTEND Hospitalist
DX: R07.9 Chest pain, unspecified (principal); I10 Essential (primary) hypertension; E78.5 Hyperlipidemia, unspecified; I25.10 Atherosclerotic heart disease of native coronary artery without angina pectoris; Z95.5 Presence of coronary angioplasty implant and graft; R06.02 Shortness of breath; I71.21 Aneurysm of the ascending aorta, without rupture; Z79.82 Long term (current) use of aspirin
CPT/HCPCS: 93005; 85025 ×2; 80048 ×2; 36415; 83735; 85610; 80076; 84484 ×3; 83880; 71275; 71045; 96375; 96374; 99285; Q9967; J2405; G0378 ×4; J1650